=== PATIENT | female | born 1940 | race Caucasian/White ===

== ENCOUNTER 2021-12-29 04:41 | Inpatient (IN) ==
[2021-12-29] MEDS ORDERED: ACETAMINOPHEN 1,000 MG/100 ML VIAL IV STA (05:18)
[2021-12-29 05:39] LABS: Basophils # (auto) 0.04 K/uL (0-0.2); Basophils % (auto) 0.3 %; Eosinophils # (auto) 0.09 K/uL (0-0.50); Eosinophils % (auto) 0.7 %; Hematocrit (blood only) 35.1 % (34.1-44.9); Hemoglobin 12.3 g/dl (12.0-16.0); Immature Granulocytes # (auto) 0.06 K/uL (0.00-0.02); Immature Granulocytes % (auto) 0.5 %; Lymphocytes # (auto) 1.07 K/uL (1.2-3.4); Lymphocytes % (auto) 8.9 %; Mean Corpuscular Hemoglobin 31.6 pg (25.0-34.0); Mean Corpuscular Volume 90.2 fL (80.0-100.0); Mean Platelet Volume 11.6 fL (9.4-12.3); Monocytes # (auto) 0.52 K/uL (0.24-0.82); Monocytes % (auto) 4.3 %; Neutrophils # (auto) 10.26 K/uL (1.4-6.5); Neutrophils % (auto) 85.3 %; Platelet Count 226 K/uL (130-400); RDW Coefficient of Variation 11.7 % (11.5-14.5); RDW Standard Deviation 38.4 fL (36.4-46.3); Red Blood Count 3.89 M/uL (3.93-5.22); White Blood Count 12.04 K/ul (4.8-10.8)
[2021-12-29] MEDS: SODIUM CHLORIDE 0.9% 500 ML IV SCH ×3 (05:45→15:00)
[2021-12-29 05:51] LABS: INR 1.2 (0.9-1.1); Partial Thromboplastin Ratio 0.8; Partial Thromboplastin Time 21.1 Seconds (21.0-31.0); Prothrombin Time 12.3 Seconds (9.0-12.0)
[2021-12-29 06:07] LABS: Alanine Aminotransferase 11 U/L (7-52); Albumin Level 4.3 gm/dl (3.4-5.0); Alkaline Phosphatase 49 U/L (34-104); Anion Gap 9 (3-11); Aspartate Aminotransferase 15 U/L (13-39); Bilirubin,Total 0.6 mg/dl (0.2-1.0); Blood Urea Nitrogen 16 mg/dl (6-23); Calcium 9.7 mg/dl (8.5-10.1); Carbon Dioxide 29 mmol/L (21-32); Chloride 103 mmol/L (98-107); Globulin 2.2 gm/dl (2.5-4.0); Glucose 117 mg/dl (70-99(Fasting)); Potassium 3.1 mmol/L (3.5-5.1); Sodium 141 mmol/L (136-145); Total Protein 6.5 gm/dl (6.0-8.3)
--- NOTE | 2021-12-29 06:11 | XRay Report ---
SINGLE VIEW CHEST CLINICAL HISTORY: Fall. Generalized weakness. FINDINGS: An AP, portable, supine chest radiograph is compared to study dated 12/22/2018 and correlate d with chest CT dated 07/02/2016. The cardiomediastinal silhouette is unremarkable noting atherosclero tic calcification of the thoracic aorta. Chronic interstitial thickening is similar to previous. The lungs and pleural spaces are clear. No pneumothorax is seen. The skeletal structures are osteopenic. The bony thorax is grossly intact. IMPRESSION: No active disease in the chest. ACT 112: Negative or not required by law. Electronically signed by: Ede Jaramillo M.D. 12/29/2021 6:10 AM
--- NOTE | 2021-12-29 06:18 | XRay Report ---
SINGLE VIEW PELVIS; 2 VIEWS LEFT HIP CLINICAL HISTORY: Fall with left hip pain. FINDINGS: An AP view of the pelvis with AP and crosstable lateral views of the left hip are obtained. No prior studies are available for comparison at the time of dictation. The skeletal structures are osteopenic. There is a nondisplaced intertrochanteric fracture of the left proximal femur with overly ing soft tissue edema. No additional fracture is seen involving the right hip or the bony pelvis. Mil [id number] degenerative change and joint space narrowing is seen in the hips. There is mild degene rative sclerosis of the sacroiliac joints. Suture material projects over the pelvis. There is no julian l obstruction. IMPRESSION: Nondisplaced intertrochanteric fracture of the left proximal femur. Electronically signed by: Ede Jaramillo M.D. 12/29/2021 6:17 AM
[2021-12-29 06:26] LABS: BUN Creatinine Ratio 12.8 (10-20); Est GFR (African American) 46.4 ml/min
[2021-12-29 06:28] LABS: Appearance Urine Cloudy (Clear); Bacteria Urine Automated Negative (Negative); Bilirubin Urine Negative (Negative); Blood Urine Negative (Negative); Cast Urine Automated 0 /lpf (0-5); Color Urine Yellow; Glucose Urine UA Negative (Negative); Ketones Urine Negative (Negative); Leukocyte Esterase Urine Negative (Negative); Nitrite Urine Negative (Negative); Protein Urine Negative (Negative); RBC Urine Automated 0-4 /hpf (0-4); Specific Gravity Urine 1.012 (1.000-1.030); Urobilinogen Urine Negative (Negative); WBC Urine Automated 0 /hpf (0-5); pH Urine 7.5 (4.5-7.5)
--- NOTE | 2021-12-29 08:03 | Emergency Department Note ---
Impression & Plan Closed left hip fracture, Dementia, CKD (chronic kidney disease) ED Provider Note NAME: JHONATAN CHEN AGE: 81 SEX: F ARRIVES VIA: Ambulance INFORMANT: EMS ED PROVIDER(S): Bennie Vigil MD CHIEF COMPLAINT: Fall, hip pain PLAN: Disposition: Admit MEDICAL DECISION MAKING: The patient is a pleasant 81-year-old woman with a past medical history of dementia, chronic left-sided facial droop, CKD who presents to the emergency department via EMS from [place] where she was found on the ground early this morning complaining of left hip pain. Patient is a poor historian. She has tenderness throughout the left groin with limited range of motion secondary to pain. Distal PMS intact. She is not on anticoagulation. The patient is a poor historian. There were no reports of any recent illness, fevers cough or otherwise. On arrival the patient is uncomfortable in no acute distress, afebrile stable vital signs. She has tenderness throughout the left groin with limited range of motion secondary to pain. EKG without overt acute ischemia. CXR negative for acute cardiopulmonary process. WBC 12, nonspecific. H/H and platelets within normal limits. Chemistry without metabolic acidosis. Creatinine 1.2 without prior values for comparison. LFTs unremarkable. UA without evidence of infection. COVID-19 RNA, LUX test was negative. Plain films of the pelvis and left hip demonstrate a non-displaced left intertrochanteric hip fracture. I did attempt to contact the patient's daughter, Jenae, but a voicemail was left. Case was discussed with MARIA VICTORIA Adams hospitalist, who will evaluate the patient for admission. Triage Nursing notes reviewed and agree them. Prior medical records reviewed Vital Signs: reviewed and remarkable for no significant abnormalities Differential diagnosis: Fracture, subluxation, dislocation, contusion, ligamentous injury, ne urovascular, compartment syndrome, rhabdomyolysis, as well as other pathologies. ER treatment provided: See below. Diagnostics interpreted by me: ECG: Sinus bradycardia, 56 bpm, no ectopy, no overt ST elevation or depression, QTC 472, QRS 80. Cardiac Monitoring: An order for continuous cardiac monitoring was placed and demonstrated Sinus bradycardia, 56 bpm, no ectopy. Laboratory studies: See below Imaging studies: See below Consultation(s): MARIA VICTORIA Adams hospitalist HPI: The patient is a pleasant 81-year-old woman with a past medical history of dementia, chronic left-sided facial droop, CKD who presents to the emergency department via EMS from [place] where she was found on the ground early this morning complaining of left hip pain. Patient is a poor historian. She has tenderness throughout the left groin with limited range of motion secondary to pain. Distal PMS intact. She is not on anticoagulation. The patient is a poor historian. There were no reports of any recent illness, fevers cough or otherwise. ROS: See above HPI for pertinent positives & negatives. A total of 10 systems reviewed and were otherwise negative. VITALS:See Below PHYSICAL EXAMINATION: GENERAL: Awake, alert, uncomfortable-appearing, in no distress HENT: Normocephalic, atraumatic. Oropharynx with dry mucous membranes and otherwise unremarkable. EYES: Normal conjunctiva. Sclera non-icteric. NECK: Supple. No nuchal rigidity. FROM. No JVD. RESPIRATORY: Clear to auscultation. CARDIAC: Regular rate, normal rhythm. Extremities warm and well perfused. Pulses equal. ABDOMEN: Soft, non-distended. No tenderness to palpation. No rebound or guarding. No masses. RECTAL: Deferred. MUSCULOSKELETAL: Chest examination reveals no tenderness. The back is symmetrical on inspection without obvious abnormality. There is no CVA tenderness to palpation. Tenderness throughout the left groin with limited range of motion secondary to pain. LOWER EXTREMITIES: Calves are equal size bilaterally and non-tender. No edema. No discoloration. NEURO: Left facial droop that is baseline per report. No new focal sensory or motor deficits noted. SKIN: No rash or jaundice noted. 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 Depression Diverticulosis Dyspnea Essential hypertension Gastroparesis GERD (gastroesophageal reflux disease) Hiatal hernia Kidney disease, chronic, stage III (GFR 30-59 ml/min) Mitral valve disorder Palpitations Paroxysmal supraventricular tachycardia Premature beats Pure hyperglyceridemia Rheumatic aortic regurgitation Seborrheic keratosis Skin cancer Tachycardia Thyroid nodule Surgical History H/O removal of cyst H/O total hysterectomy History of appendectomy History of cardiac cath History of cholecystectomy History of tonsillectomy and adenoidectomy Family History Brother Hypertension Diabetes Lung cancer Sister Hypertension Social History Smoking Status: Never smoker Hx Alcohol Use: No Hx Substance Use: No Preferred Language: Cambodian Communication Ability: Effective [employer] Driver Required: No Beliefs That Will Affect Care: None marital status: Current Living Situation: Personal Care Facility Current Living Situation Comment: [facility] current occupational status: retired Other Information That Helps Us Care for You: No Feels Safe at Home: Yes Safety Concerns: Feels Safe At This Time caffeine: Yes Seatbelt Use: always Assistive Devices: None Allergies Allergies Allergy/AdvReac Type Severity Reaction Status Date / Time codeine Allergy Unknown Verified 12/29/21 07:11 shellfish derived Allergy Unknown UNKNOWN Verified 12/29/21 07:11 Home Meds Home Medications Medication Instructions Recorded Confirmed ascorbate calcium (vitamin C) 500 500 mg PO DAILY 07/26/19 12/29/21 mg tablet aspirin 81 mg tablet,delayed 81 mg PO DAILY 07/26/19 12/29/21 release (Adult Low Dose Aspirin) calcitriol 0.25 mcg capsule 0.25 mcg PO DAILY 07/26/19 12/29/21 cholecalciferol (vitamin D3) 50 50 mcg PO DAILY 07/26/19 12/29/21 mcg (2,000 unit) capsule diltiazem HCl 180 mg 180 mg PO DAILY 07/26/19 12/29/21 capsule,extended release 24 hr (Cardizem CD) magnesium 250 mg tablet 250 mg PO DAILY 07/26/19 12/29/21 omeprazole 40 mg capsule,delayed 40 mg PO DAILY 07/26/19 12/29/21 release azelastine 137 mcg (0.1 %) nasal 1 spray intranasal BID PRN 12/29/21 12/29/21 spray aerosol Congestion budesonide 0.5 mg/2 mL suspension 0.5 mg inhalation UD 12/29/21 12/29/21 for nebulization famotidine 20 mg tablet 20 mg PO DAILY 12/29/21 12/29/21 formoterol fumarate 20 mcg/2 mL 20 mcg inhalation UD 12/29/21 12/29/21 solution for nebulization (Perforomist) metoprolol tartrate 25 mg tablet 25 mg PO BID 12/29/21 12/29/21 sertraline 100 mg tablet 100 mg PO DAILY 12/29/21 12/29/21 Previous Rx's Medication Instructions Recorded fluticasone furoate 200 1 puffs inhalation DAILY #1 inhaler 11/07/19 mcg-vilanterol 25 mcg/dose inhalation powder (Breo Ellipta) fexofenadine 180 mg tablet 180 mg PO DAILY #30 tabs 04/03/20 (Lara Allergy) Results & Data (ED) Vital Signs Vital Signs - 24 hr 12/29/21 04:46 12/29/21 05:50 12/29/21 06:19 Temperature 36.8 C Temperature Source Rectal Pulse Rate 86 Pulse Rate [Finger] 63 58 L Pulse Rhythm [Finger] Regular Regular Pulse Strength [Finger] Normal Normal Respiratory Rate 16 17 16 Respiratory Effort / Characteristics Non-Labored Spontaneous Non-Labored Spontaneous Non-Labored Spontaneous Respiratory Depth Normal Normal Normal Respiratory Pattern Regular Regular Blood Pressure 165/77 H Blood Pressure [Right Arm] 165/77 H 167/68 H Blood Pressure Mean 106 Blood Pressure Mean [Right Arm] 106 101 Blood Pressure Position [Right Arm] Lying Pulse Oximetry 92 96 95 Oxygen Delivery Method Room Air Room Air Room Air Sepsis Recent Fever Within 48 Hours No Sepsis New/Unexplained Change in Mental Status No Sepsis Action Taken by Nursing No Action Required 12/29/21 07:59 Temperature Temperature Source Pulse Rate Pulse Rate [Finger] 58 L Pulse Rhythm [Finger] Pulse Strength [Finger] Respiratory Rate 16 Respiratory Effort / Characteristics Non-Labored Respiratory Depth Normal Respiratory Pattern Blood Pressure Blood Pressure [Right Arm] 127/91 Blood Pressure Mean Blood Pressure Mean [Right Arm] 103 Blood Pressure Position [Right Arm] Pulse Oximetry 96 Oxygen Delivery Method Room Air Sepsis Recent Fever Within 48 Hours Sepsis New/Unexplained Change in Mental Status Sepsis Action Taken by Nursing Laboratory Data Attestation: I reviewed the patient's lab results. Result diagrams: 12/29/21 04:57 12/29/21 04:57 Lab Results 12/29/21 12/29/21 12/29/21 Range/Units 04:57 04:57 04:57 WBC 12.04 H (4.8-10.8) K/ul RBC 3.89 L (3.93-5.22) M/uL Hgb 12.3 (12.0-16.0) g/dl Hct 35.1 (34.1-44.9) % MCV 90.2 (80.0-100.0) fL MCH 31.6 (25.0-34.0) pg MCHC 35.0 (32.0-36.0) g/dL RDW Std Deviation 38.4 (36.4-46.3) fL RDW Coeff of Lc 11.7 (11.5-14.5) % Plt Count 226 (130-400) K/uL MPV 11.6 (9.4-12.3) fL Immature Gran % (Auto) 0.5 % Neut % (Auto) 85.3 % Lymph % (Auto) 8.9 % Aurora % (Auto) 4.3 % Eos % (Auto) 0.7 % Baso % (Auto) 0.3 % Neut # (Auto) 10.26 H (1.4-6.5) K/uL Lymph # (Auto) 1.07 L (1.2-3.4) K/uL Aurora # (Auto) 0.52 (0.24-0.82) K/uL Eos # (Auto) 0.09 (0-0.50) K/uL Baso # (Auto) 0.04 (0-0.2) K/uL Immature Gran # (Auto) 0.06 H (0.00-0.02) K/uL PT 12.3 H (9.0-12.0) Seconds INR 1.2 H (0.9-1.1) APTT 21.1 (21.0-31.0) Seconds PTT Ratio 0.8 Sodium 141 (136-145) mmol/L Potassium 3.1 L (3.5-5.1) mmol/L Chloride 103 (98-107) mmol/L Carbon Dioxide 29 (21-32) mmol/L Anion Gap 9 (3-11) BUN 16 (6-23) mg/dl Creatinine 1.25 H (0.6-1.2) mg/dl Est Cr Clr Drug Dosing Not Reportable Est GFR ( Amer) 46.4 ml/min Est GFR (Non-Af Amer) 40.0 ml/min BUN/Creatinine Ratio 12.8 (10-20) Glucose 117 H (70-99(Fasting)) mg/dl Calcium 9.7 (8.5-10.1) mg/dl Total Bilirubin 0.6 (0.2-1.0) mg/dl AST 15 (13-39) U/L ALT 11 (7-52) U/L Alkaline Phosphatase 49 (34-104) U/L Total Protein 6.5 (6.0-8.3) gm/dl Albumin 4.3 (3.4-5.0) gm/dl Globulin 2.2 L (2.5-4.0) gm/dl Albumin/Globulin Ratio 2.0 (0.9-2) Urine Color Urine Appearance (Clear) Urine pH (4.5-7.5) Ur Specific Bend (1.000-1.030) Urine Protein (Negative) Urine Glucose (UA) (Negative) Urine Ketones (Negative) Urine Blood (Negative) Urine Nitrite (Negative) Urine Bilirubin (Negative) Urine Urobilinogen (Negative) Ur Leukocyte Esterase (Negative) Urine WBC (Auto) (0-5) /hpf Urine RBC (Auto) (0-4) /hpf U Hyaline Cast (Auto) (0-5) /lpf U Epithel Cells (Auto) (0-5) /lpf Urine Bacteria (Auto) (Negative) SARS-CoV-2, RNA, NAAT (NEGATIVE) 12/29/21 12/29/21 Range/Units 05:43 05:43 WBC (4.8-10.8) K/ul RBC (3.93-5.22) M/uL Hgb (12.0-16.0) g/dl Hct (34.1-44.9) % MCV (80.0-100.0) fL MCH (25.0-34.0) pg MCHC (32.0-36.0) g/dL RDW Std Deviation (36.4-46.3) fL RDW Coeff of Lc (11.5-14.5) % Plt Count (130-400) K/uL MPV (9.4-12.3) fL Immature Gran % (Auto) % Neut % (Auto) % Lymph % (Auto) % Aurora % (Auto) % Eos % (Auto) % Baso % (Auto) % Neut # (Auto) (1.4-6.5) K/uL Lymph # (Auto) (1.2-3.4) K/uL Aurora # (Auto) (0.24-0.82) K/uL Eos # (Auto) (0-0.50) K/uL Baso # (Auto) (0-0.2) K/uL Immature Gran # (Auto) (0.00-0.02) K/uL PT (9.0-12.0) Seconds INR (0.9-1.1) APTT (21.0-31.0) Seconds PTT Ratio Sodium (136-145) mmol/L Potassium (3.5-5.1) mmol/L Chloride (98-107) mmol/L Carbon Dioxide (21-32) mmol/L Anion Gap (3-11) BUN (6-23) mg/dl Creatinine (0.6-1.2) mg/dl Est Cr Clr Drug Dosing Est GFR ( Amer) ml/min Est GFR (Non-Af Amer) ml/min BUN/Creatinine Ratio (10-20) Glucose (70-99(Fasting)) mg/dl Calcium (8.5-10.1) mg/dl Total Bilirubin (0.2-1.0) mg/dl AST (13-39) U/L ALT (7-52) U/L Alkaline Phosphatase (34-104) U/L Total Protein (6.0-8.3) gm/dl Albumin (3.4-5.0) gm/dl Globulin (2.5-4.0) gm/dl Albumin/Globulin Ratio (0.9-2) Urine Color Yellow Urine Appearance Cloudy A (Clear) Urine pH 7.5 (4.5-7.5) Ur Specific [place] 1.012 (1.000-1.030) Urine Protein Negative (Negative) Urine Glucose (UA) Negative (Negative) Urine Ketones Negative (Negative) Urine Blood Negative (Negative) Urine Nitrite Negative (Negative) Urine Bilirubin Negative (Negative) Urine Urobilinogen Negative (Negative) Ur Leukocyte Esterase Negative (Negative) Urine WBC (Auto) 0 (0-5) /hpf Urine RBC (Auto) 0-4 (0-4) /hpf U Hyaline Cast (Auto) 0 (0-5) /lpf U Epithel Cells (Auto) 5-10 H (0-5) /lpf Urine Bacteria (Auto) Negative (Negative) SARS-CoV-2, RNA, NAAT NEGATIVE (NEGATIVE) Administered Medications Acetaminophen (Acetaminophen 325 Mg Tab) 650 mg PO Q4H PRN PRN Reason: pain/fever Stop: 01/28/22 10:25 Last Admin: 12/29/21 14:55 Dose: 650 mg Documented By: JILLW Ascorbic Acid (Ascorbic Acid 500 Mg Tab) 500 mg PO DAILY VEE Stop: 01/28/22 10:44 Last Admin: 12/29/21 12:03 Dose: 500 mg Documented By: BHAVIN Aspirin (Aspirin 81 Mg Ectab) 81 mg PO DAILY VEE Stop: 01/28/22 10:25 Last Admin: 12/29/21 12:02 Dose: 81 mg Documented By: BHAVIN Budesonide (Budesonide 0.5 Mg/2 Ml Vial (Pulmicort)) 0.5 mg INH BIDR VEE Stop: 01/28/22 10:59 Last Admin: 12/29/21 11:55 Dose: 0.5 mg Documented By: MAGALY Calcitriol (Calcitriol 0.25 Mcg Capsule) 0.25 mcg PO DAILY VEE Stop: 01/28/22 10:25 Last Admin: 12/29/21 12:02 Dose: 0.25 mcg Documented By: BHAVIN Diltiazem HCl (Diltiazem Hcl 180 Mg Capcr) 180 mg PO DAILY VEE Stop: 01/28/22 10:25 Last Admin: 12/29/21 12:02 Dose: 180 mg Documented By: BHAVIN Famotidine (Famotidine 20 Mg Tab) 20 mg PO DAILY VEE Stop: 01/28/22 10:25 Last Admin: 12/29/21 12:04 Dose: 20 mg Documented By: BHAVIN Fexofenadine HCl (Fexofenadine Hcl 180 Mg Tab) 180 mg PO DAILY VEE Stop: 01/28/22 10:25 Last Admin: 12/29/21 12:05 Dose: 180 mg Documented By: BHAVIN Formoterol Fumarate (Formoterol 20 Mcg/2 Ml Vial) 20 mcg INH BIDR VEE Stop: 01/28/22 10:59 Last Admin: 12/29/21 11:55 Dose: 20 mcg Documented By: MAGALY Magnesium Oxide (Magnesium Oxide 400 Mg Tab) 400 mg PO DAILY VEE Stop: 01/28/22 10:44 Last Admin: 12/29/21 12:04 Dose: 400 mg Documented By: BHAVIN Metoprolol Tartrate (Metoprolol Tartrate 25 Mg Tab) 25 mg PO BID VEE Stop: 01/28/22 10:25 Last Admin: 12/29/21 12:04 Dose: 25 mg Documented By: BHAVIN Pantoprazole Sodium (Pantoprazole 40 Mg Tab) 40 mg PO DAILY VEE Stop: 01/28/22 10:44 Last Admin: 12/29/21 12:02 Dose: 40 mg Documented By: BHAVIN Sertraline HCl (Sertraline Hcl 100 Mg Tablet) 100 mg PO DAILY VEE Stop: 01/28/22 10:25 Last Admin: 12/29/21 12:03 Dose: 100 mg Documented By: BHAVIN Vitamin D (Cholecalciferol 1,000 Units 25 Mcg Tab) 2,000 units PO DAILY VEE Stop: 01/28/22 10:44 Last Admin: 12/29/21 12:03 Dose: 2,000 units Documented By: BHAVIN Discontinued Medications Fluticasone/Vilanterol (Fluticasone/Vilanterol 200/25mcg 14 Puffs/Inhaler) 1 puffs INH DAILY VEE Stop: 01/28/22 10:25 Last Admin: 12/29/21 11:41 Dose: Not Given Documented By: BHAVIN Sodium Chloride (Nss) 500 mls @ 125 mls/hr IV .Q4H VEE Stop: 01/28/22 05:29 Last Admin: 12/29/21 15:00 Dose: 125 mls/hr Documented By: Infusion: 12/29/21 14:59 Dose: 0 mls/hr Documented By: Admin: 12/29/21 11:30 Dose: 125 mls/hr Documented By: Infusion: 12/29/21 09:45 Dose: 0 mls/hr Documented By: Admin: 12/29/21 05:45 Dose: 125 mls/hr Documented By: ANTONIO Acetaminophen (Ofirmev) 1,000 mg in 100 mls @ 400 mls/hr IV NOW STA Stop: 12/29/21 05:32 Last Infusion: 12/29/21 06:21 Dose: 0 mls/hr Documented By: Admin: 12/29/21 05:45 Dose: 400 mls/hr Documented By: [facility] Imaging Data Radiologist's Impression: Hip/Pelvis X-Ray 12/29/21 05:18 SINGLE VIEW PELVIS; 2 VIEWS LEFT HIP CLINICAL HISTORY: Fall with left hip pain. FINDINGS: An AP view of the pelvis with AP and crosstable lateral views of the left hip are obtained. No prior studies are available for comparison at the time of dictation. The skeletal structures are osteopenic. There is a nondisplaced intertrochanteric fracture of the left proximal femur with overlying soft tissue edema. No additional fracture is seen involving the right hip or the bony pelvis. [id number] degenerative change and joint space narrowing is seen in the hips. There is mild degenerative sclerosis of the sacroiliac joints. Suture material projects over the pelvis. There is no bowel obstruction. IMPRESSION: Nondisplaced intertrochanteric fracture of the left proximal femur. Electronically signed by: Ede Jaramillo M.D. 12/29/2021 6:17 AM Chest X-Ray 12/29/21 05:19 SINGLE VIEW CHEST CLINICAL HISTORY: Fall. Generalized weakness. FINDINGS: An AP, portable, supine chest radiograph is compared to study dated 12/22/2018 and correlated with chest CT dated 07/02/2016. The cardiomediastinal silhouette is unremarkable noting atherosclerotic calcification of the thoracic aorta. Chronic interstitial thickening is similar to previous. The lungs and pleural spaces are clear. No pneumothorax is seen. The skeletal structures are osteopenic. The bony thorax is grossly intact. IMPRESSION: No active disease in the chest. ACT 112: Negative or not required by law. Electronically signed by: Ede Jaramillo M.D. 12/29/2021 6:10 AM Discharge Plan Visit Data Chief Complaint: Hip Pain Stated Complaint: Fall ED Provider: Bennie Vigil Discharge Problem: Closed left hip fracture, Dementia, CKD (chronic kidney disease) Patient Disposition: Admitted As Inpatient Discharge Instructions Interventions: ED Discharge Assessment Last Done: 12/29/21 10:08
[2021-12-29] MEDS ORDERED: CALCITRIOL 0.25 MCG CAPSULE PO SCH (10:26)
[2021-12-29] MEDS ORDERED: FLUTICASONE/VILANTEROL 200/25MCG 14 PUFFS/INHALER INH SCH (10:26)
[2021-12-29] MEDS: BUDESONIDE 0.5 MG/2 ML VIAL (PULMICORT) INH SCH ×2 (11:55→20:09)
[2021-12-29] MEDS: FORMOTEROL 20 MCG/2 ML VIAL INH SCH ×2 (11:55→20:09)
[2021-12-29] MEDS: PANTOprazole 40 MG TAB PO SCH (12:02)
[2021-12-29] MEDS: ASPIRIN 81 MG ECTAB PO SCH (12:02)
[2021-12-29] MEDS: CALCITRIOL 0.25 MCG CAPSULE PO SCH (12:02)
[2021-12-29] MEDS: dilTIAZem HCL 180 MG CAPCR PO SCH (12:02)
[2021-12-29] MEDS: SERTRALINE HCL 100 MG TABLET PO SCH (12:03)
[2021-12-29] MEDS: CHOLECALCIFEROL 1,000 UNITS 25 MCG TAB PO SCH (12:03)
[2021-12-29] MEDS: ASCORBIC ACID 500 MG TAB PO SCH (12:03)
[2021-12-29] MEDS: METOPROLOL TARTRATE 25 MG TAB PO SCH ×2 (12:04→21:45)
[2021-12-29] MEDS: FAMOTIDINE 20 MG TAB PO SCH (12:04)
[2021-12-29] MEDS: MAGNESIUM OXIDE 400 MG TAB PO SCH (12:04)
[2021-12-29] MEDS: FEXOFENADINE HCL 180 MG TAB PO SCH (12:05)
--- NOTE | 2021-12-29 12:14 | History & Physical Report ---
Date of Service December 29, 2021 Assessment & Plan (1) Closed left hip fracture: Plan: Following a mechanical fall at her [place] residence X ray showed evidence of a nondisplaced intertrochanteric fracture of the left proximal femur Will consult Orto Keep NPO SCD for now in case of surgery (2) HTN (hypertension): Plan: BP is under good control, continue home meds Plan patient is medically optimized for surgery Admission and Anticipated Discharge Date Admission Date: December 29, 2021 History of Present Illness Chief Complaint: hip pain Primary Care Provider: Shon Renteria Is an 81-year-old retirement resident with a history of dementia, COPD, HTN, who was brought from a retirement resident following a fall. Patient is a poor historian given a history of dementia so most of the history was obtained from chart review and ED doctor. In the emergency department, vital signs are stable, CBC BMP were essentially within normal limits however an x-ray of the hip was done which showed evidence of a nondisplaced intertrochanteric fracture of the left proximal femur. Patient will be admitted to the hospital, orthopedics consulted for further management. Of note, the surrogate decision maker is his daughter, call has been placed awaiting callback. Allergies Allergy/AdvReac Type Severity Reaction Status Date / Time codeine Allergy Unknown Verified 12/29/21 07:11 shellfish derived Allergy Unknown UNKNOWN Verified 12/29/21 07:11 Home Medications Medication Instructions Recorded Confirmed Type ascorbate calcium (vitamin C) 500 500 mg PO DAILY 07/26/19 12/29/21 History mg tablet aspirin 81 mg tablet,delayed 81 mg PO DAILY 07/26/19 12/29/21 History release (Adult Low Dose Aspirin) calcitriol 0.25 mcg capsule 0.25 mcg PO DAILY 07/26/19 12/29/21 History cholecalciferol (vitamin D3) 50 50 mcg PO DAILY 07/26/19 12/29/21 History mcg (2,000 unit) capsule diltiazem HCl 180 mg 180 mg PO DAILY 07/26/19 12/29/21 History capsule,extended release 24 hr (Cardizem CD) magnesium 250 mg tablet 250 mg PO DAILY 07/26/19 12/29/21 History omeprazole 40 mg capsule,delayed 40 mg PO DAILY 07/26/19 12/29/21 History release fluticasone furoate 200 1 puffs inhalation DAILY #1 inhaler 11/07/19 12/29/21 Rx mcg-vilanterol 25 mcg/dose inhalation powder (Breo Ellipta) fexofenadine 180 mg tablet 180 mg PO DAILY #30 tabs 04/03/20 12/29/21 Rx ([facility] All[facility]) azelastine 137 mcg (0.1 %) nasal 1 spray intranasal BID PRN 12/29/21 12/29/21 History spray aerosol Congestion budesonide 0.5 mg/2 mL suspension 0.5 mg inhalation UD 12/29/21 12/29/21 History for nebulization famotidine 20 mg tablet 20 mg PO DAILY 12/29/21 12/29/21 History formoterol fumarate 20 mcg/2 mL 20 mcg inhalation UD 12/29/21 12/29/21 History solution for nebulization (Perforomist) metoprolol tartrate 25 mg tablet 25 mg PO BID 12/29/21 12/29/21 History sertraline 100 mg tablet 100 mg PO DAILY 12/29/21 12/29/21 History Past Med/Surg History Medical History (Updated 12/29/21 @ 12:09 by Azar Hurst MD) Achalasia Anxiety Aortic insufficiency Aortic valve disorder Asthma Chest pain 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 Depression Diverticulosis Dyspnea Essential hypertension Gastroparesis GERD (gastroesophageal reflux disease) Hiatal hernia Kidney disease, chronic, stage III (GFR 30-59 ml/min) Mitral valve disorder Palpitations Paroxysmal supraventricular tachycardia Premature beats Pure hyperglyceridemia Rheumatic aortic regurgitation Seborrheic keratosis Skin cancer Tachycardia Thyroid nodule Surgical History H/O removal of cyst H/O total hysterectomy History of appendectomy History of cardiac cath History of cholecystectomy History of tonsillectomy and adenoidectomy Family History (Updated 11/07/19 @ 10:08 by Josefina uV) Brother Hypertension Diabetes Lung cancer Sister Hypertension Social History (Updated 07/26/19 @ 14:10 by Kathryn Cabrera) Smoking Status: Unknown if ever smoked Hx Alcohol Use: Yes marital status: Legally Current Living Situation: Family current occupational status: retired Feels Safe at Home: Yes caffeine: Yes Seatbelt Use: always Review of Systems Review of Systems: unreliable due to dementia Physical Exam Physical Exam: The patient is awake, alert confused, well developed and well nourished, normocephalic and atraumatic, lying in bed and in no acute distress. HEENT--PERRL, EOMI, mucous membranes and oropharynx mildly dry Neck--supple. No JVD. No bruits. Thyroid normal, trachea midline, no adenopathy. Heart--normal S1 and S2. No murmurs, rubs or gallops. Lungs--clear bilaterally, no respiratory distress, no accessory muscle use. Abdomen--normal bowel sounds and soft. Mild epigastric and left sided abdominal pain Extremities--no cyanosis or clubbing. No edema. Dermatologic--normal skin turgor, normal color, no abnormal lymph nodes, no rash. Neurologic--cranial nerves II through XII grossly intact. Rheumatologic--normal range of motion. Psychiatric--normal affect. Results & Data Results & Data ([facility]) Vital Signs (Past 12 Hours) Vital Signs Temp Pulse Pulse Resp BP BP Pulse Ox 12/29/21 11:56 62 16 96 12/29/21 10:07 62 16 126/67 96 12/29/21 07:59 58 L 16 127/91 96 12/29/21 06:19 58 L 16 167/68 H 95 12/29/21 05:50 63 17 165/77 H 96 12/29/21 04:46 98.2 F 86 16 165/77 H 92 O2 Del Method 12/29/21 11:56 Room Air 12/29/21 10:07 Room Air 12/29/21 07:59 Room Air 12/29/21 06:19 Room Air 12/29/21 05:50 Room Air 12/29/21 04:46 Room Air Code Status & VTE Plan Code Status full code for now VTE, SCD VTE Prophylaxis Plan VTE Prophylaxis will be ordered: Yes PG Care Time/CCT Total # of Minutes Spent Total Time Spent with Patient: Total time spent is greater than 50% in coordination of care (as documented) at patient's floor/unit and/or counseling patient: Coding Level of Care Code 10963 Initial Inpt Care Lvl 3 Diagnoses Closed left hip fracture S72.002A HTN (hypertension) I10 Time Spent (min) 35
[2021-12-29] MEDS: ACETAMINOPHEN 325 MG TAB PO PRN ×2 (14:55→22:44)
[2021-12-29] MEDS: SODIUM CHLORIDE 0.9% 1,000 ML IV SCH (18:45)
--- NOTE | 2021-12-29 21:07 | Electrocardiogram Report ---
Test Reason : Blood Pressure : / mmHG Vent. Rate : 056 BPM Atrial Rate : 056 BPM P-R Int : 144 ms QRS Dur : 080 ms QT Int : 490 ms P-R-T Axes : 069 -24 038 degrees QTc Int : 472 ms Sinus bradycardia Otherwise normal ECG When compared with ECG of 02-NOV-2002 14:13, No significant change was found Confirmed by Frankie Figueroa ([id number]) on 12/29/2021 9:07:07 PM Referred By: REFERRED SELF Confirmed By:Frankie Figueroa
[2021-12-29] MEDS: HEPARIN SOD 5,000 UNIT/0.5 ML VIAL SQ SCH (22:44)
[2021-12-30] MEDS: SODIUM CHLORIDE 0.9% 1,000 ML IV SCH ×3 (03:17→19:21)
[2021-12-30] MEDS: HEPARIN SOD 5,000 UNIT/0.5 ML VIAL SQ SCH ×3 (06:15→21:40)
[2021-12-30] MEDS: FORMOTEROL 20 MCG/2 ML VIAL INH SCH (07:24)
[2021-12-30] MEDS: BUDESONIDE 0.5 MG/2 ML VIAL (PULMICORT) INH SCH (07:24)
[2021-12-30] MEDS: ASCORBIC ACID 500 MG TAB PO SCH (08:26)
[2021-12-30] MEDS: CALCITRIOL 0.25 MCG CAPSULE PO SCH (08:26)
[2021-12-30] MEDS: METOPROLOL TARTRATE 25 MG TAB PO SCH ×2 (08:27→20:47)
[2021-12-30] MEDS: CHOLECALCIFEROL 1,000 UNITS 25 MCG TAB PO SCH (08:27)
[2021-12-30] MEDS: MAGNESIUM OXIDE 400 MG TAB PO SCH (08:27)
[2021-12-30] MEDS: FAMOTIDINE 20 MG TAB PO SCH (08:28)
[2021-12-30] MEDS: FEXOFENADINE HCL 180 MG TAB PO SCH (08:28)
[2021-12-30] MEDS: ASPIRIN 81 MG ECTAB PO SCH (08:28)
[2021-12-30] MEDS: dilTIAZem HCL 180 MG CAPCR PO SCH (08:28)
[2021-12-30] MEDS: PANTOprazole 40 MG TAB PO SCH (08:28)
[2021-12-30] MEDS: SERTRALINE HCL 100 MG TABLET PO SCH (08:29)
[2021-12-30] MEDS: ACETAMINOPHEN 325 MG TAB PO PRN ×2 (08:31→12:31)
[2021-12-30 08:32] LABS: Hematocrit (blood only) 28.1 % (34.1-44.9); Hemoglobin 10.2 g/dl (12.0-16.0); Mean Corpuscular Hemoglobin 32.1 pg (25.0-34.0); Mean Corpuscular Hgb Conc 36.3 g/dL (32.0-36.0); Mean Corpuscular Volume 88.4 fL (80.0-100.0); Mean Platelet Volume 11.1 fL (9.4-12.3); Platelet Count 169 K/uL (130-400); RDW Coefficient of Variation 11.7 % (11.5-14.5); RDW Standard Deviation 37.9 fL (36.4-46.3); Red Blood Count 3.18 M/uL (3.93-5.22); White Blood Count 8.36 K/ul (4.8-10.8)
[2021-12-30 08:58] LABS: BUN Creatinine Ratio 13.6 (10-20); Calcium 8.4 mg/dl (8.5-10.1); Creatinine Clr Calc Pharmacy 40.5 ml/min; Est GFR (African American) 78.4 ml/min; Est GFR (Non-African American) 67.6 ml/min; Potassium 2.7 mmol/L (3.5-5.1)
[2021-12-30] MEDS ORDERED: POTASSIUM CHLORIDE CRTAB 20 MEQ TABCR PO STA (14:24)
--- NOTE | 2021-12-30 15:06 | Anesthesiology Consultation ---
Date of Service December 30, 2021 Assessment & Plan Chart Review Chart Review: Pending: Refer to Additional Notes / Consult section and Patient NOT seen in Pre Admission Testing Consults Requested medical ASA ASA4 History Surgery Operation Date: 12/30/21 16:00 Proposed Procedures p Intramedullary Mauro Femur - Angelito Landers, Height/Weight Height: 5 ft 5 in Weight: 47.9 kg Allergies Allergy/AdvReac Type Severity Reaction Status Date / Time codeine Allergy Unknown Verified 12/29/21 07:11 shellfish derived Allergy Unknown UNKNOWN Verified 12/29/21 07:11 Medications Home Medications Medication Instructions Recorded Confirmed Last Taken ascorbate calcium (vitamin C) 500 500 mg PO DAILY 07/26/19 12/29/21 Unknown mg tablet aspirin 81 mg tablet,delayed 81 mg PO DAILY 07/26/19 12/29/21 Unknown release (Adult Low Dose Aspirin) calcitriol 0.25 mcg capsule 0.25 mcg PO DAILY 07/26/19 12/29/21 Unknown cholecalciferol (vitamin D3) 50 50 mcg PO DAILY 07/26/19 12/29/21 Unknown mcg (2,000 unit) capsule diltiazem HCl 180 mg 180 mg PO DAILY 07/26/19 12/29/21 Unknown capsule,extended release 24 hr (Cardizem CD) magnesium 250 mg tablet 250 mg PO DAILY 07/26/19 12/29/21 Unknown omeprazole 40 mg capsule,delayed 40 mg PO DAILY 07/26/19 12/29/21 Unknown release fluticasone furoate 200 1 puffs inhalation DAILY #1 inhaler 11/07/19 12/29/21 Unknown mcg-vilanterol 25 mcg/dose inhalation powder (Breo Ellipta) fexofenadine 180 mg tablet 180 mg PO DAILY #30 tabs 04/03/20 12/29/21 Unknown (Lara Allergy) azelastine 137 mcg (0.1 %) nasal 1 spray intranasal BID PRN 12/29/21 12/29/21 Unknown spray aerosol Congestion budesonide 0.5 mg/2 mL suspension 0.5 mg inhalation UD 12/29/21 12/29/21 Unknown for nebulization famotidine 20 mg tablet 20 mg PO DAILY 12/29/21 12/29/21 Unknown formoterol fumarate 20 mcg/2 mL 20 mcg inhalation UD 12/29/21 12/29/21 Unknown solution for nebulization (Perforomist) metoprolol tartrate 25 mg tablet 25 mg PO BID 12/29/21 12/29/21 Unknown sertraline 100 mg tablet 100 mg PO DAILY 12/29/21 12/29/21 Unknown Active Medications Generic Name Dose Route Start Last Admin Trade Name Freq PRN Reason Stop Dose Admin Acetaminophen 650 mg 12/29/21 10:26 12/30/21 12:31 Acetaminophen 325 Mg Tab PO 01/28/22 10:25 650 mg Q4H PRN Administration pain/fever Ascorbic Acid 500 mg 12/29/21 10:45 12/30/21 08:26 Ascorbic Acid 500 Mg Tab PO 01/28/22 10:44 500 mg DAILY VEE Administration Aspirin 81 mg 12/29/21 10:12/30/21 08:28 Aspirin 81 Mg Ectab PO 01/28/22 10:25 81 mg DAILY VEE Administration Calcitriol 0.25 mcg 12/29/21 10:26 12/30/21 08:26 Calcitriol 0.25 Mcg Capsule PO 01/28/22 10:25 0.25 mcg DAILY VEE Administration Diltiazem HCl 180 mg 12/29/21 10:26 12/30/21 08:28 Diltiazem Hcl 180 Mg Capcr PO 01/28/22 10:25 Not Given DAILY VEE Famotidine 20 mg 12/29/21 10:26 12/30/21 08:28 Famotidine 20 Mg Tab PO 01/28/22 10:25 20 mg DAILY VEE Administration Fexofenadine HCl 180 mg 12/29/21 10:26 12/30/21 08:28 Fexofenadine Hcl 180 Mg Tab PO 01/28/22 10:25 180 mg DAILY VEE Administration Heparin Sodium (Porcine) 5,000 units 12/29/21 22:00 12/30/21 13:28 Heparin Sod 5,000 Unit/0.5 Ml Vial SQ 01/28/22 21:59 Not Given Q8 VEE Sodium Chloride 1,000 mls @ 125 mls/hr 12/29/21 18:00 12/30/21 11:31 Nss IV 01/28/22 17:59 125 mls/hr .Q8H VEE Administration Magnesium Oxide 400 mg 12/29/21 10:45 12/30/21 08:27 Magnesium Oxide 400 Mg Tab PO 01/28/22 10:44 400 mg DAILY VEE Administration Metoprolol Tartrate 25 mg 12/29/21 10:26 12/30/21 08:27 Metoprolol Tartrate 25 Mg Tab PO 01/28/22 10:25 Not Given BID VEE Pantoprazole Sodium 40 mg 12/29/21 10:45 12/30/21 08:28 Pantoprazole 40 Mg Tab PO 01/28/22 10:44 40 mg DAILY VEE Administration Sertraline HCl 100 mg 12/29/21 10:26 12/30/21 08:29 Sertraline Hcl 100 Mg Tablet PO 01/28/22 10:25 100 mg DAILY VEE Administration Vitamin D 2,000 units 12/29/21 10:45 12/30/21 08:27 Cholecalciferol 1,000 Units 25 Mcg Tab PO 01/28/22 10:44 2,000 units DAILY VEE Administration Past Medical History Medical History Achalasia Anxiety Aortic insufficiency Aortic valve disorder Asthma Chest pain 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 Depression Diverticulosis Dyspnea Essential hypertension Gastroparesis GERD (gastroesophageal reflux disease) Hiatal hernia Kidney disease, chronic, stage III (GFR 30-59 ml/min) Mitral valve disorder Palpitations Paroxysmal supraventricular tachycardia Premature beats Pure hyperglyceridemia Rheumatic aortic regurgitation Seborrheic keratosis Skin cancer Tachycardia Thyroid nodule Exercise / Class Metabolic Activity III < 4 Walking/Shop/Light housework Past Family History Family History Brother Hypertension Diabetes Lung cancer Sister Hypertension Past Surgical History Surgical History H/O removal of cyst H/O total hysterectomy History of appendectomy History of cardiac cath History of cholecystectomy History of tonsillectomy and adenoidectomy Past Anesthesia History No Hx of Anesthesia Complications and No Family Hx of Anesthesia Complications History of PONV No Hx of PONV and No Hx of Motion Sickness Social History Smoking Status: Never smoker Hx Alcohol Use: No Hx Substance Use: No Physical Exam Vital Signs Last Vital Signs Temp 36.8 C 12/30/21 14:38 Pulse 80 12/30/21 14:38 Resp 20 12/30/21 14:38 BP 185/62 H 12/30/21 14:38 Pulse Ox 98 12/30/21 14:38 O2 Del Method 12/30/21 07:24 FiO2 21 12/29/21 20:10 Testing Laboratory Results 12/30/21 08:13 12/30/21 08:13 PT 12.3 Seconds (9.0-12.0) H 12/29/21 04:57 INR 1.2 (0.9-1.1) H 12/29/21 04:57 APTT 21.1 Seconds (21.0-31.0) 12/29/21 04:57 Urine Color Yellow 12/29/21 05:43 Urine Appearance Cloudy (Clear) A 12/29/21 05:43 Urine pH 7.5 (4.5-7.5) 12/29/21 05:43 Ur Specific D Lo 1.012 (1.000-1.030) 12/29/21 05:43 Urine Protein Negative (Negative) 12/29/21 05:43 Urine Glucose (UA) Negative (Negative) 12/29/21 05:43 Urine Ketones Negative (Negative) 12/29/21 05:43 Urine Nitrite Negative (Negative) 12/29/21 05:43 Ur Leukocyte Esterase Negative (Negative) 12/29/21 05:43 Urine WBC (Auto) 0 /hpf (0-5) 12/29/21 05:43 Urine RBC (Auto) 0-4 /hpf (0-4) 12/29/21 05:43 U Hyaline Cast (Auto) 0 /lpf (0-5) 12/29/21 05:43 U Epithel Cells (Auto) 5-10 /lpf (0-5) H 12/29/21 05:43 Urine Bacteria (Auto) Negative (Negative) 12/29/21 05:43 Electrocardiogram Date: 12/29/21 Findings: + SB @ (at 56) Chest X-Ray Date: 12/29/21 Findings: + NAD and + atherosclerosis of thoracic aorta Echocardiogram Date: 09/26/21 EF: 55% LV Function: normal RWMA: + none Other Findings: no atrial enlargement Valvular Disease: + no significant valvular disease, + AI (mild AR) and + MR (mild) Cardiac Catheterization Date: 04/24/11 Findings: + normal and + valve disease (mild mr;minimal ar) Intervention: + none
--- NOTE | 2021-12-30 15:15 | Communication Note ---
Date of Service: December 30, 2021 Discussed w/ DR Hurst pt's hypokalemia,which must be addressed and repleted prior to OR.I have received a recent Echocardiogram,w/c is unremarkable and cardiac cath report from April 2011 w/c shows normal coronary arteries.
--- NOTE | 2021-12-30 16:31 | Hospitalist Progress Note ---
Date of Service December 30, 2021 Assessment & Plan (1) Closed left hip fracture: Plan: Following a mechanical fall at her [place] residence X ray showed evidence of a nondisplaced intertrochanteric fracture of the left proximal femur Surgery has been deferred on account of hypokalemia tentatively re scheduled for tomorrow (2) HTN (hypertension): Plan: BP 185/62 today will continue home meds add po clonidine 0.1mg daily (3) Hypokalemia: Plan: Replete re check BMP Plan patient is medically optimized for surgery Admission and Anticipated Discharge Date Admission Date: December 29, 2021 Subjective patient seen and examined, was waiting for surgery Review of Systems Review of Systems: unreliable due to dementia Physical Exam Physical Exam: The patient is awake, alert confused, well developed and well nourished, normocephalic and atraumatic, lying in bed and in no acute distress. HEENT--PERRL, EOMI, mucous membranes and oropharynx mildly dry Neck--supple. No JVD. No bruits. Thyroid normal, trachea midline, no adenopathy. Heart--normal S1 and S2. No murmurs, rubs or gallops. Lungs--clear bilaterally, no respiratory distress, no accessory muscle use. Abdomen--normal bowel sounds and soft. Mild epigastric and left sided abdominal pain Extremities--no cyanosis or clubbing. No edema. Dermatologic--normal skin turgor, normal color, no abnormal lymph nodes, no r davin. Neurologic--cranial nerves II through XII grossly intact. Rheumatologic--normal range of motion. Psychiatric--normal affect. Results & Data Results & Data ([facility]) Vital Signs (Past 12 Hours) Vital Signs Temp Pulse Resp BP Pulse Ox O2 Del Method 12/30/21 14:38 98.2 F 80 20 185/62 H 98 12/30/21 07:20 Room Air 12/30/21 07:24 57 L 16 90 Room Air 12/30/21 07:14 98.1 F 55 L 16 138/59 L 93 Room Air PG Care Time/CCT Total # of Minutes Spent Total Time Spent with Patient: Total time spent is greater than 50% in coordination of care (as documented) at patient's floor/unit and/or counseling patient: Coding Level of Care Code 00316 Subseq Hosp Care Lvl 2 Diagnoses Closed left hip fracture S72.002A HTN (hypertension) I10 Hypokalemia E87.6 Time Spent (min) 35
[2021-12-30] MEDS ORDERED: cloNIDine HCL 0.1 MG TAB PO ONE (16:45)
[2021-12-30 17:12] LABS: BUN Creatinine Ratio 14.3 (10-20); Calcium 8.5 mg/dl (8.5-10.1); Creatinine Clr Calc Pharmacy 42.6 ml/min; Est GFR (African American) 83.3 ml/min; Est GFR (Non-African American) 71.9 ml/min; Potassium 2.8 mmol/L (3.5-5.1)
--- NOTE | 2021-12-30 17:14 | Cardiology Consultation ---
Date of Consultation December 30, 2021 Assessment & Plan (1) Preop cardiovascular exam: (2) Aortic insufficiency: (3) Paroxysmal supraventricular tachycardia: (4) HTN (hypertension): (5) Hypokalemia: (6) Sinus bradycardia: Plan ASSESSMENT/PLAN: 1. Preoperative cardiac assessment: Difficult to know her risk given dementia but based on no new reported chest pain or shortness of breath than what was previously reported by her bioinformatics research technician, and the fact that she is supposedly an avid walker, even at her nursing facility, likely low cardiac risk for upcoming orthopedic surgery. Would continue with her beta-grace therapy. Changed hold parameters for heart rate less than 50 however her heart rate is now more elevated given that she was not given diltiazem nor metoprolol this morning. 2. Sinus bradycardia: Mild sinus bradycardia on presenting ECG while on diltiaz em and metoprolol. Nursing staff held diltiazem and metoprolol due to hold parameters. Adjusted metoprolol parameter as above. To avoid bradycardia, okay to replace diltiazem with amlodipine, and can continue forward with beta- grace. 3. Hypertension: Blood pressure elevated. She did not receive her antihypertensive agents today as noted above. Consider replacing diltiazem with amlodipine. 4. Hypokalemia: As per primary hospitalist service. 5. Paroxysmal SVT: Details of this are not known but diagnosis mentioned in her outpatient cardiology note. Her daughter was not aware of this diagnosis. Can continue low-dose beta-grace. 6. Aortic regurgitation: Mild on echo. 7. Left femur fracture: As per orthopedics. Details of the fall are not well known to me at the time of this note. 8. Disposition: Cardiology will sign off. Please call with any further questions or concerns. Plan of care communicated with Dr. Hurst, of the primary hospitalist service. Thank you for allowing me to participate in the care of your patient. Please call for any other questions or concerns. Sincerely, Van Forrest M.D. History of Present Illness Reason for Consultation: Preoperative cardiac assessment Requesting Physician: Azar Hurst MD Attending Physician: Azar Hurst MD History of Present Illness Ms. Ambriz is a pleasant 81-year-old female with history significant for paroxysmal SVT/atrial tachycardia, mild aortic regurgitation, hypertension, and dementia. Her primary bioinformatics research technician is Dr. Bashir with [facility]. She herself is a poor historian given dementia. She does not recall why she is hospitalized. She does not recall falling and fracturing her left femur. She denies chest pain, shortness of breath, syncope, near-syncope, palpitations, edema. She states that she is able to ambulate without a cane or walker, and without cardiac symptoms. History was also obtained by reviewing records, including cardiology note on 03/19/2021 by her primary bioinformatics research technician, Dr. Bashir, and also an echo report from 09/26/2021 done with [facility]. Her daughter, Jenae, was contacted via telephone as well. She states that her mother has significant dementia and was getting lost even in her own home. She was placed in [facility] in October because of this. She states that her mom has complained of shortness of breath and chest pain in the past but believes it was for attention, given that her mother is lonely. The symptoms were also noted in her primary bioinformatics research technician's note and has been evaluated in the past with echo and a cardiac catheterization in 2001 with normal coronary arteries per cardiac catheterization report from 04/24/2011. Jenae's states that her mother walks often without issues. Merry roper's does not know the details of the fall. She has had the following studies/procedures: 1. Cardiac catheterization 04/24/2011 [facility]: Normal coronary arteries. Mild MR. Minimal AI. 2. Echo 09/26/2021 [facility]: Normal LV size and systolic function. EF 55%. Mild MR. Mild AI. Review of systems: As above and otherwise unobtainable due to dementia. Family history: Noncontributory. Social history: Quit smoking in the past. No alcohol. . Has 2 daughters, Jenae and Minerva however Minerva as not been part of their life for some time. She resides at [facility]. She was alone in her room. Allergies Allergy/AdvReac Type Severity Reaction Status Date / Time codeine Allergy Unknown Verified 12/29/21 07:11 shellfish derived Allergy Unknown UNKNOWN Verified 12/29/21 07:11 Home Medications Medication Instructions Recorded Confirmed Type ascorbate calcium (vitamin C) 500 500 mg PO DAILY 07/26/19 12/29/21 History mg tablet aspirin 81 mg tablet,delayed 81 mg PO DAILY 07/26/19 12/29/21 History release (Adult Low Dose Aspirin) calcitriol 0.25 mcg capsule 0.25 mcg PO DAILY 07/26/19 12/29/21 History cholecalciferol (vitamin D3) 50 50 mcg PO DAILY 07/26/19 12/29/21 History mcg (2,000 unit) capsule diltiazem HCl 180 mg 180 mg PO DAILY 07/26/19 12/29/21 History capsule,extended release 24 hr (Cardizem CD) magnesium 250 mg tablet 250 mg PO DAILY 07/26/19 12/29/21 History omeprazole 40 mg capsule,delayed 40 mg PO DAILY 07/26/19 12/29/21 History release fluticasone furoate 200 1 puffs inhalation DAILY #1 inhaler 11/07/19 12/29/21 Rx mcg-vilanterol 25 mcg/dose inhalation powder (Breo Ellipta) fexofenadine 180 mg tablet 180 mg PO DAILY #30 tabs 04/03/20 12/29/21 Rx ([facility] Allergy) azelastine 137 mcg (0.1 %) nasal 1 spray intranasal BID PRN 12/29/21 12/29/21 History spray aerosol Congestion budesonide 0.5 mg/2 mL suspension 0.5 mg inhalation UD 12/29/21 12/29/21 History for nebulization famotidine 20 mg tablet 20 mg PO DAILY 12/29/21 12/29/21 History formoterol fumarate 20 mcg/2 mL 20 mcg inhalation UD 12/29/21 12/29/21 History solution for nebulization (Perforomist) metoprolol tartrate 25 mg tablet 25 mg PO BID 12/29/21 12/29/21 History sertraline 100 mg tablet 100 mg PO DAILY 12/29/21 12/29/21 History Patient History Medical History (Updated 12/30/21 @ 17:31 by Hebert Forrest MD) Achalasia Anxiety Aortic insufficiency Asthma Chest pain Depression Diverticulosis Dyspnea Essential hypertension Gastroparesis GERD (gastroesophageal reflux disease) Hiatal hernia Kidney disease, chronic, stage III (GFR 30-59 ml/min) Mitral valve disorder Palpitations Paroxysmal supraventricular tachycardia Premature beats Pure hyperglyceridemia Seborrheic keratosis Skin cancer Tachycardia Thyroid nodule Surgical History H/O removal of cyst H/O total hysterectomy History of appendectomy History of cardiac cath History of cholecystectomy History of tonsillectomy and adenoidectomy Family History Brother Hypertension Diabetes Lung cancer Sister Hypertension Social History Smoking Status: Never smoker Hx Alcohol Use: No Hx Substance Use: No Preferred Language: Serbian Communication Ability: Effective 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 Alert. Oriented to self. HEENT: Anicteric sclera. Neck: No JVD. No bruits. Normal carotid upstrokes bilaterally. Cardiac: PMI was nondisplaced. No ventricular heave. Regular. Normal S1-S2. No murmurs, rubs, or gallops. Pulmonary: Clear to auscultation bilaterally without wheezes, rales, or rhonchi. Abdomen: Soft, nontender, nondistended, with normoactive bowel sounds. No bruits noted. Extremities: 2+ radial pulses bilaterally. 2+ posterior tibialis pulses bilaterally. No edema or cyanosis. Psychiatric: Affect appears appropriate. Results & Data ([facility]) Vital Signs (Past 12 Hours) Vital Signs Temp Pulse Resp BP Pulse Ox O2 Del Method 12/30/21 14:38 36.8 C 80 20 185/62 H 98 12/30/21 07:20 Room Air 12/30/21 07:24 57 L 16 90 Room Air 12/30/21 07:14 36.7 C 55 L 16 138/59 L 93 Room Air Laboratory Results Laboratory Results - last 24 hr 12/30/21 12/30/21 12/30/21 08:13 08:13 16:36 WBC 8.36 RBC 3.18 L Hgb 10.2 L Hct 28.1 L MCV 88.4 MCH 32.1 MCHC 36.3 H RDW Std Deviation 37.9 RDW Coeff of Lc 11.7 Plt Count 169 MPV 11.1 Sodium 141 140 Potassium 2.7 L 2.8 L Chloride 109 H 110 H Carbon Dioxide 25 22 Anion Gap 7 8 BUN 11 11 Creatinine 0.81 D 0.77 Est Cr Clr Drug Dosing 40.5 42.6 Est GFR ( Amer) 78.4 83.3 Est GFR (Non-Af Amer) 67.6 71.9 BUN/Creatinine Ratio 13.6 14.3 Glucose 93 103 H Calcium 8.4 L 8.5 Diagnostic Findings Cardiac catheterization and echo reports reviewed as noted above in HPI. ECG personally reviewed 12/29/2021: Sinus bradycardia 56 beats per minute. Medications Administered Current Inpatient Medications Acetaminophen (Acetaminophen 325 Mg Tab) 650 mg PO Q4H PRN PRN Reason: pain/fever Stop: 01/28/22 10:25 Last Admin: 12/30/21 12:31 Dose: 650 mg Ascorbic Acid (Ascorbic Acid 500 Mg Tab) 500 mg PO DAILY VEE Stop: 01/28/22 10:44 Last Admin: 12/30/21 08:26 Dose: 500 mg Aspirin (Aspirin 81 Mg Ectab) 81 mg PO DAILY VEE Stop: 01/28/22 10:25 Last Admin: 12/30/21 08:28 Dose: 81 mg Calcitriol (Calcitriol 0.25 Mcg Capsule) 0.25 mcg PO DAILY VEE Stop: 01/28/22 10:25 Last Admin: 12/30/21 08:26 Dose: 0.25 mcg Clonidine HCl (Clonidine Hcl 0.1 Mg Tab) 0.1 mg PO QAM VEE Stop: 01/30/22 08:59 Diltiazem HCl (Diltiazem Hcl 180 Mg Capcr) 180 mg PO DAILY VEE Stop: 01/28/22 10:25 Last Admin: 12/30/21 08:28 Dose: Not Given Famotidine (Famotidine 20 Mg Tab) 20 mg PO DAILY VEE Stop: 01/28/22 10:25 Last Admin: 12/30/21 08:28 Dose: 20 mg Fexofenadine HCl (Fexofenadine Hcl 180 Mg Tab) 180 mg PO DAILY VEE Stop: 01/28/22 10:25 Last Admin: 12/30/21 08:28 Dose: 180 mg Fluticasone/Vilanterol (Fluticasone/Vilanterol 100/25mcg 14 Puffs/Inhaler) 1 puffs INH DAILY VEE Stop: 01/30/22 08:59 Heparin Sodium (Porcine) (Heparin Sod 5,000 Unit/0.5 Ml Vial) 5,000 units SQ Q8 VEE Stop: 01/28/22 21:59 Last Admin: 12/30/21 13:28 Dose: Not Given Sodium Chloride (Nss) 1,000 mls @ 125 mls/hr IV .Q8H VEE Stop: 01/28/22 17:59 Last Admin: 12/30/21 11:31 Dose: 125 mls/hr Magnesium Oxide (Magnesium Oxide 400 Mg Tab) 400 mg PO DAILY VEE Stop: 01/28/22 10:44 Last Admin: 12/30/21 08:27 Dose: 400 mg Metoprolol Tartrate (Metoprolol Tartrate 25 Mg Tab) 25 mg PO BID VEE Stop: 01/28/22 10:25 Last Admin: 12/30/21 08:27 Dose: Not Given Pantoprazole Sodium (Pantoprazole 40 Mg Tab) 40 mg PO DAILY VEE Stop: 01/28/22 10:44 Last Admin: 12/30/21 08:28 Dose: 40 mg Sertraline HCl (Sertraline Hcl 100 Mg Tablet) 100 mg PO DAILY VEE Stop: 01/28/22 10:25 Last Admin: 12/30/21 08:29 Dose: 100 mg Vitamin D (Cholecalciferol 1,000 Units 25 Mcg Tab) 2,000 units PO DAILY VEE Stop: 01/28/22 10:44 Last Admin: 12/30/21 08:27 Dose: 2,000 units PG Care Time/CCT Total # of Minutes Spent Total Time Spent with Patient: Total time spent is greater than 50% in coordination of care (as documented) at patient's floor/unit and/or counseling patient: Coding Level of Care Code 51312 Initial Inpt Care Lvl 3 Diagnoses Preop cardiovascular exam Z01.810 Aortic insufficiency I35.1 Paroxysmal supraventricular tachycardia I47.1 HTN (hypertension) I10 Hypokalemia E87.6 Sinus bradycardia R00.1
[2021-12-30] MEDS ORDERED: amLODIPine BESYLATE 5 MG TAB PO ONE (17:34)
--- NOTE | 2021-12-30 20:58 | Orthopedic Consultation ---
Date of Consultation December 30, 2021 Assessment & Plan (1) Closed left hip fracture: Plan NWB LLE bedrest pain control SCDs Med mgmt/optimization Plan for Left hip cephalomedullary nail when medically cleared for surgery. Surgery cancelled today due to pt not being medically cleared for OR. Discussed operative mgmt with daughter Debra RAY who is in agreement with surgical intervention. History of Present Illness Attending Physician: Azar Hurst MD History of Present Illness 81 yo F presenting [facility] ED after sustaining a GLF at her nursing facility. Pt demented at baseline, details obtained via discussion with her daughter Debra who is POA. Was found to have a displaced Left intertrochanteric femur fracture admitted to medical service with ortho consulted for operative mgmt. Allergies Allergy/AdvReac Type Severity Reaction Status Date / Time codeine Allergy Unknown Verified 12/29/21 07:11 shellfish derived Allergy Unknown UNKNOWN Verified 12/29/21 07:11 Home Medications Medication Instructions Recorded Confirmed Type ascorbate calcium (vitamin C) 500 500 mg PO DAILY 07/26/19 12/29/21 History mg tablet aspirin 81 mg tablet,delayed 81 mg PO DAILY 07/26/19 12/29/21 History release (Adult Low Dose Aspirin) calcitriol 0.25 mcg capsule 0.25 mcg PO DAILY 07/26/19 12/29/21 History cholecalciferol (vitamin D3) 50 50 mcg PO DAILY 07/26/19 12/29/21 History mcg (2,000 unit) capsule diltiazem HCl 180 mg 180 mg PO DAILY 07/26/19 12/29/21 History capsule,extended release 24 hr (Cardizem CD) magnesium 250 mg tablet 250 mg PO DAILY 07/26/19 12/29/21 History omeprazole 40 mg capsule,delayed 40 mg PO DAILY 07/26/19 12/29/21 History release fluticasone furoate 200 1 puffs inhalation DAILY #1 inhaler 11/07/19 12/29/21 Rx mcg-vilanterol 25 mcg/dose inhalation powder (Breo Ellipta) fexofenadine 180 mg tablet 180 mg PO DAILY #30 tabs 04/03/20 12/29/21 Rx ([facility] All[facility]) azelastine 137 mcg (0.1 %) nasal 1 spray intranasal BID PRN 12/29/21 12/29/21 History spray aerosol Congestion budesonide 0.5 mg/2 mL suspension 0.5 mg inhalation UD 12/29/21 12/29/21 History for nebulization famotidine 20 mg tablet 20 mg PO DAILY 12/29/21 12/29/21 History formoterol fumarate 20 mcg/2 mL 20 mcg inhalation UD 12/29/21 12/29/21 History solution for nebulization (Perforomist) metoprolol tartrate 25 mg tablet 25 mg PO BID 12/29/21 12/29/21 History sertraline 100 mg tablet 100 mg PO DAILY 12/29/21 12/29/21 History Patient History Medical History (Updated 12/30/21 @ 17:31 by Hebert Forrest MD) Achalasia Anxiety Aortic insufficiency Asthma Chest pain Depression Diverticulosis Dyspnea Essential hypertension Gastroparesis GERD (gastroesophageal reflux disease) Hiatal hernia Kidney disease, chronic, stage III (GFR 30-59 ml/min) Mitral valve disorder Palpitations Paroxysmal supraventricular tachycardia Premature beats Pure hyperglyceridemia Seborrheic keratosis Skin cancer Tachycardia Thyroid nodule Surgical History H/O removal of cyst H/O total hysterectomy History of appendectomy History of cardiac cath History of cholecystectomy History of tonsillectomy and adenoidectomy Family History Brother Hypertension Diabetes Lung cancer Sister Hypertension Social History Smoking Status: Never smoker Hx Alcohol Use: No Hx Substance Use: No Preferred Language: Qatari Communication Ability: Effective 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
[2021-12-31] MEDS: SODIUM CHLORIDE 0.9% 1,000 ML IV SCH ×3 (03:04→18:33)
[2021-12-31] MEDS: HEPARIN SOD 5,000 UNIT/0.5 ML VIAL SQ SCH ×3 (05:53→21:38)
[2021-12-31 07:02] LABS: BUN Creatinine Ratio 12.9 (10-20); Calcium 8.3 mg/dl (8.5-10.1); Creatinine Clr Calc Pharmacy 46.9 ml/min; Est GFR (African American) 93.5 ml/min; Est GFR (Non-African American) 80.7 ml/min
[2021-12-31] MEDS ORDERED: POTASSIUM CHLORIDE CRTAB 20 MEQ TABCR PO STA (07:36)
[2021-12-31] MEDS: POTASSIUM CHLORIDE / WTR 10 MEQ/100 ML PLCT IV SCH ×3 (07:50→09:45)
[2021-12-31] MEDS: METOPROLOL TARTRATE 25 MG TAB PO SCH ×2 (07:56→19:50)
[2021-12-31] MEDS: ASPIRIN 81 MG ECTAB PO SCH (07:56)
[2021-12-31] MEDS: PANTOprazole 40 MG TAB PO SCH (07:57)
[2021-12-31] MEDS: SERTRALINE HCL 100 MG TABLET PO SCH (07:57)
[2021-12-31] MEDS: amLODIPine BESYLATE 5 MG TAB PO SCH (07:57)
[2021-12-31] MEDS: MAGNESIUM OXIDE 400 MG TAB PO SCH (07:58)
[2021-12-31] MEDS: CHOLECALCIFEROL 1,000 UNITS 25 MCG TAB PO SCH (07:58)
[2021-12-31] MEDS: CALCITRIOL 0.25 MCG CAPSULE PO SCH (07:58)
[2021-12-31] MEDS: ASCORBIC ACID 500 MG TAB PO SCH (07:59)
[2021-12-31] MEDS: cloNIDine HCL 0.1 MG TAB PO SCH (07:59)
[2021-12-31] MEDS: FEXOFENADINE HCL 180 MG TAB PO SCH (07:59)
[2021-12-31] MEDS: FAMOTIDINE 20 MG TAB PO SCH (08:00)
[2021-12-31] MEDS: ACETAMINOPHEN 325 MG TAB PO PRN ×3 (08:49→19:46)
[2021-12-31] MEDS: FLUTICASONE/VILANTEROL 100/25MCG 14 PUFFS/INHALER INH SCH (09:22)
--- NOTE | 2021-12-31 10:10 | Communication Note ---
Date of Service: December 31, 2021 Pt resting comfortably. Currently has one on one nursing to watch over her. Appears comfortable. Plan for surgery tomorrow with Dr. Landers.
[2021-12-31 11:43] LABS: BUN Creatinine Ratio 12.3 (10-20); Calcium 8.2 mg/dl (8.5-10.1); Creatinine Clr Calc Pharmacy 44.9 ml/min; Est GFR (African American) 88.9 ml/min; Est GFR (Non-African American) 76.7 ml/min; Potassium 3.5 mmol/L (3.5-5.1)
--- NOTE | 2021-12-31 13:44 | Hospitalist Progress Note ---
Date of Service December 31, 2021 Assessment & Plan (1) Closed left hip fracture: Plan: Following a mechanical fall at [place] residence X ray showed evidence of a nondisplaced intertrochanteric fracture of the left proximal femur Surgery has been deferred on account of hypokalemia tentatively re scheduled for tomorrow (2) HTN (hypertension): Plan: BP 157/72 today will continue home meds add po clonidine 0.1mg daily (3) Hypokalemia: Plan: Replete re check BMP Plan patient is medically optimized for surgery Admission and Anticipated Discharge Date Admission Date: December 29, 2021 Subjective patient seen and examined, surgery has been postponed till tomorrow Review of Systems Review of Systems: unreliable due to dementia Physical Exam Physical Exam: The patient is awake, alert confused, well developed and well nourished, normocephalic and atraumatic, lying in bed and in no acute distress. HEENT--PERRL, EOMI, mucous membranes and oropharynx mildly dry Neck--supple. No JVD. No bruits. Thyroid normal, trachea midline, no adenopathy. Heart--normal S1 and S2. No murmurs, rubs or gallops. Lungs--clear bilaterally, no respiratory distress, no accessory muscle use. Abdomen--normal bowel sounds and soft. Mild epigastric and left sided abdominal pain Extremities--no cyanosis or clubbing. No edema. Dermatologic--normal skin turgor, normal color, no abnormal lymph nodes, no rash. Neurologic--cranial nerves II through XII grossly intact. Rheumatologic--normal range of motion. Psychiatric--normal affect. Results & Data Results & Data ([facility]) Vital Signs (Past 12 Hours) Vital Signs Temp Pulse Resp BP BP Pulse Ox O2 Del Method 12/31/21 12:33 59 L 18 157/72 H 96 Room Air 12/31/21 11:37 98.1 F 62 18 162/74 H 97 Room Air 12/31/21 07:20 Room Air 12/31/21 07:27 97.7 F 72 22 166/69 H 95 Room Air PG Care Time/CCT Total # of Minutes Spent Total Time Spent with Patient: Total time spent is greater than 50% in coordination of care (as documented) at patient's floor/unit and/or counseling patient: Coding Level of Care Code 30041 Subseq Hosp Care Lvl 2 Diagnoses Closed left hip fracture S72.002A HTN (hypertension) I10 Hypokalemia E87.6 Time Spent (min) 35
[2022-01-01] MEDS: ACETAMINOPHEN 325 MG TAB PO PRN (02:34)
[2022-01-01] MEDS: SODIUM CHLORIDE 0.9% 1,000 ML IV SCH ×2 (02:42→10:57)
[2022-01-01] MEDS: HEPARIN SOD 5,000 UNIT/0.5 ML VIAL SQ SCH ×2 (06:15→15:03)
[2022-01-01] MEDS ORDERED: POTASSIUM CHLORIDE CRTAB 20 MEQ TABCR PO STA (07:51)
[2022-01-01] MEDS: METOPROLOL TARTRATE 25 MG TAB PO SCH ×2 (08:32→20:08)
[2022-01-01] MEDS: POTASSIUM CHLORIDE / WTR 10 MEQ/100 ML PLCT IV SCH ×6 (08:50→20:08)
[2022-01-01 09:11] LABS: BUN Creatinine Ratio 11.1 (10-20); Calcium 8.2 mg/dl (8.5-10.1); Creatinine Clr Calc Pharmacy 52.1 ml/min; Est GFR (African American) 96.8 ml/min; Est GFR (Non-African American) 83.5 ml/min; Potassium 2.9 mmol/L (3.5-5.1)
[2022-01-01] MEDS: ASPIRIN 81 MG ECTAB PO SCH (09:13)
[2022-01-01] MEDS: cloNIDine HCL 0.1 MG TAB PO SCH (09:13)
[2022-01-01] MEDS: amLODIPine BESYLATE 5 MG TAB PO SCH (09:13)
[2022-01-01] MEDS: ASCORBIC ACID 500 MG TAB PO SCH (09:13)
[2022-01-01] MEDS: MAGNESIUM OXIDE 400 MG TAB PO SCH (09:14)
[2022-01-01] MEDS: SERTRALINE HCL 100 MG TABLET PO SCH (09:14)
[2022-01-01] MEDS: FEXOFENADINE HCL 180 MG TAB PO SCH (09:14)
[2022-01-01] MEDS: CHOLECALCIFEROL 1,000 UNITS 25 MCG TAB PO SCH (09:14)
[2022-01-01] MEDS: FAMOTIDINE 20 MG TAB PO SCH (09:14)
[2022-01-01] MEDS: PANTOprazole 40 MG TAB PO SCH (09:14)
[2022-01-01] MEDS: CALCITRIOL 0.25 MCG CAPSULE PO SCH (09:14)
[2022-01-01] MEDS: FLUTICASONE/VILANTEROL 100/25MCG 14 PUFFS/INHALER INH SCH (09:25)
[2022-01-01] MEDS ORDERED: MIDAZOLAM HCL 1 MG/ML 2ML VIAL ONE (11:55)
[2022-01-01] MEDS ORDERED: LIDOCAINE 2% MPF LOCAL 5 ML VIAL INFIL ONE (11:55)
[2022-01-01] MEDS ORDERED: PROPOFOL IV EMULSION 10 MG/ML 20 ML VIAL IV ONE ×2 (11:55→14:35)
[2022-01-01] MEDS: SODIUM CHLORIDE 0.9% 1000ML 1,000 ML IV SCH ×2 (12:02→17:12)
--- NOTE | 2022-01-01 12:45 | Hospitalist Progress Note ---
Date of Service January 01, 2022 Assessment & Plan (1) Closed left hip fracture: Plan: Following a mechanical fall at her [place] residence X ray showed evidence of a nondisplaced intertrochanteric fracture of the left proximal femur Surgery scheduled for today (2) HTN (hypertension): Plan: BP 141/65 today will continue home meds add po clonidine 0.1mg daily (3) Hypokalemia: Plan: Replete re check BMP Plan patient is medically optimized for surgery Admission and Anticipated Discharge Date Admission Date: December 29, 2021 Subjective patient seen and examined, appears comfortable, confused due to dementia Review of Systems Review of Systems: unreliable due to dementia Physical Exam Physical Exam: The patient is awake, alert confused, well developed and well nourished, normocephalic and atraumatic, lying in bed and in no acute distress. HEENT--PERRL, EOMI, mucous membranes and oropharynx mildly dry Neck--supple. No JVD. No bruits. Thyroid normal, trachea midline, no adenopathy. Heart--normal S1 and S2. No murmurs, rubs or gallops. Lungs--clear bilaterally, no respiratory distress, no accessory muscle use. Abdomen--normal bowel sounds and soft. Mild epigastric and left sided abdominal pain Extremities--no cyanosis or clubbing. No edema. Dermatologic--normal skin turgor, normal color, no abnormal lymph nodes, no rash. Neurologic--cranial nerves II through XII grossly intact. Rheumatologic--normal range of motion. Psychiatric--normal affect. Results & Data Results & Data ([facility]) Vital Signs (Past 12 Hours) Vital Signs Temp Pulse Resp BP BP Pulse Ox O2 Del Method 01/01/22 07:15 Room Air 01/01/22 09:11 59 L 141/65 H 01/01/22 07:40 98.2 F 54 L 16 163/59 H 95 Room Air PG Care Time/CCT Total # of Minutes Spent Total Time Spent with Patient: Total time spent is greater than 50% in coordination of care (as documented) at patient's floor/unit and/or counseling patient: Coding Level of Care Code 66156 Subseq Hosp Care Lvl 2 Diagnoses Closed left hip fracture S72.002A HTN (hypertension) I10 Hypokalemia E87.6 Time Spent (min) 35
[2022-01-01] MEDS ORDERED: ceFAZolin 1000MG 1,000 MG/7.5 ML SYR IV ONE (13:34)
[2022-01-01] MEDS ORDERED: ePHEDrine sulfate 50 MG/ML AMP IV PRN (13:50)
[2022-01-01] MEDS ORDERED: ATROPINE SULFATE 0.1 MG/ML 10ML SYR IV PRN (13:50)
--- NOTE | 2022-01-01 13:50 | History & Physical Bridge Note ---
Date of Service January 01, 2022 History & Physical Bridge Note I have examined the patient, reviewed the History & Physical and in the interval since the performance of the History & Physical I have noted the following changes of clinical significance: no changes noted
--- NOTE | 2022-01-01 14:30 | Anesthesiology Consultation ---
Date of Service January 01, 2022 History Surgery Operation Date: 12/30/21 16:00 Proposed Procedures p Intramedullary Mauro Femur - Angelito Landers DO Operation Date: 01/01/22 08:20 Proposed Procedures p Left Troch Nail - Alex Sotelo MD Height/Weight Height: 5 ft 5 in Weight: 47.9 kg Allergies Allergy/AdvReac Type Severity Reaction Status Date / Time codeine Allergy Unknown Verified 12/29/21 07:11 shellfish derived Allergy Unknown UNKNOWN Verified 12/29/21 07:11 Medications Home Medications Medication Instructions Recorded Confirmed Last Taken ascorbate calcium (vitamin C) 500 500 mg PO DAILY 07/26/19 12/29/21 Unknown mg tablet aspirin 81 mg tablet,delayed 81 mg PO DAILY 07/26/19 12/29/21 Unknown release (Adult Low Dose Aspirin) calcitriol 0.25 mcg capsule 0.25 mcg PO DAILY 07/26/19 12/29/21 Unknown cholecalciferol (vitamin D3) 50 50 mcg PO DAILY 07/26/19 12/29/21 Unknown mcg (2,000 unit) capsule diltiazem HCl 180 mg 180 mg PO DAILY 07/26/19 12/29/21 Unknown capsule,extended release 24 hr (Cardizem CD) magnesium 250 mg tablet 250 mg PO DAILY 07/26/19 12/29/21 Unknown omeprazole 40 mg capsule,delayed 40 mg PO DAILY 07/26/19 12/29/21 Unknown release fluticasone furoate 200 1 puffs inhalation DAILY #1 inhaler 11/07/19 12/29/21 Unknown mcg-vilanterol 25 mcg/dose inhalation powder (Breo Ellipta) fexofenadine 180 mg tablet 180 mg PO DAILY #30 tabs 04/03/20 12/29/21 Unknown (Lara Allergy) azelastine 137 mcg (0.1 %) nasal 1 spray intranasal BID PRN 12/29/21 12/29/21 Unknown spray aerosol Congestion budesonide 0.5 mg/2 mL suspension 0.5 mg inhalation UD 12/29/21 12/29/21 Unknown for nebulization famotidine 20 mg tablet 20 mg PO DAILY 12/29/21 12/29/21 Unknown formoterol fumarate 20 mcg/2 mL 20 mcg inhalation UD 12/29/21 12/29/21 Unknown solution for nebulization (Perforomist) metoprolol tartrate 25 mg tablet 25 mg PO BID 12/29/21 12/29/21 Unknown sertraline 100 mg tablet 100 mg PO DAILY 12/29/21 12/29/21 Unknown Active Medications Generic Name Dose Route Start Last Admin Trade Name Freq PRN Reason Stop Dose Admin Acetaminophen 650 mg 12/29/21 10:26 01/01/22 02:34 Acetaminophen 325 Mg Tab PO 01/28/22 10:25 650 mg Q4H PRN Administration pain/fever Amlodipine Besylate 5 mg 12/31/21 09:00 01/01/22 09:13 Amlodipine Besylate 5 Mg Tab PO 01/30/22 08:59 5 mg QAM VEE Administration Ascorbic Acid 500 mg 12/29/21 10:45 01/01/22 09:13 Ascorbic Acid 500 Mg Tab PO 01/28/22 10:44 Not Given DAILY VEE Aspirin 81 mg 12/29/21 10:26 01/01/22 09:13 Aspirin 81 Mg Ectab PO 01/28/22 10:25 Not Given DAILY VEE Calcitriol 0.25 mcg 12/29/21 10:26 01/01/22 09:14 Calcitriol 0.25 Mcg Capsule PO 01/28/22 10:25 Not Given DAILY VEE Clonidine HCl 0.1 mg 12/31/21 09:00 01/01/22 09:13 Clonidine Hcl 0.1 Mg Tab PO 01/30/22 08:59 0.1 mg QAM VEE Administration Famotidine 20 mg 12/29/21 10:26 01/01/22 09:14 Famotidine 20 Mg Tab PO 01/28/22 10:25 Not Given DAILY VEE Fexofenadine HCl 180 mg 12/29/21 10:26 01/01/22 09:14 Fexofenadine Hcl 180 Mg Tab PO 01/28/22 10:25 Not Given DAILY VEE Fluticasone/Vilanterol 1 puffs 12/31/21 09:00 01/01/22 09:25 Fluticasone/Vilanterol 100/25mcg 14 Puffs/Inhaler INH 01/30/22 08:59 1 puffs DAILY VEE Administration Heparin Sodium (Porcine) 5,000 units 12/29/21 22:00 01/01/22 06:15 Heparin Sod 5,000 Unit/0.5 Ml Vial SQ 01/28/22 21:59 5,000 units Q8 VEE Administration Sodium Chloride 1,000 mls @ 125 mls/hr 01/01/22 11:15 01/01/22 12:02 Nss 1000ml IV 01/31/22 11:14 Not Given .Q8H VEE Magnesium Oxide 400 mg 12/29/21 10:45 01/01/22 09:14 Magnesium Oxide 400 Mg Tab PO 01/28/22 10:44 Not Given DAILY VEE Metoprolol Tartrate 25 mg 12/29/21 10:26 01/01/22 08:32 Metoprolol Tartrate 25 Mg Tab PO 01/28/22 10:25 Not Given BID VEE Pantoprazole Sodium 40 mg 12/29/21 10:45 01/01/22 09:14 Pantoprazole 40 Mg Tab PO 01/28/22 10:44 Not Given DAILY VEE Sertraline HCl 100 mg 12/29/21 10:26 01/01/22 09:14 Sertraline Hcl 100 Mg Tablet PO 01/28/22 10:25 Not Given DAILY VEE Vitamin D 2,000 units 12/29/21 10:45 01/01/22 09:14 Cholecalciferol 1,000 Units 25 Mcg Tab PO 01/28/22 10:44 Not Given DAILY VEE NPO Date Last Intake of Fluids: 01/01/22 Time Last Intake of Fluids: 02:30 Last Intake of Fluids Comment: sip with tylenol Date Last Intake of Solids: 12/31/21 Time Last Intake of Solids: 23:00 Past Medical History Medical History (Updated 12/30/21 @ 17:31 by Hebert Forrest MD) Achalasia Anxiety Aortic insufficiency Asthma Chest pain Depression Diverticulosis Dyspnea Essential hypertension Gastroparesis GERD (gastroesophageal reflux disease) Hiatal hernia Kidney disease, chronic, stage III (GFR 30-59 ml/min) Mitral valve disorder Palpitations Paroxysmal supraventricular tachycardia Premature beats Pure hyperglyceridemia Seborrheic keratosis Skin cancer Tachycardia Thyroid nodule Past Family History Family History Brother Hypertension Diabetes Lung cancer Sister Hypertension Past Surgical History Surgical History H/O removal of cyst H/O total hysterectomy History of appendectomy History of cardiac cath History of cholecystectomy History of tonsillectomy and adenoidectomy Social History Smoking Status: Never smoker Hx Alcohol Use: No Hx Substance Use: No Physical Exam Vital Signs Last Vital Signs Temp 36.6 C 01/01/22 12:55 Pulse 65 01/01/22 12:55 Resp 20 01/01/22 12:55 BP 163/54 H 01/01/22 12:55 Pulse Ox 96 01/01/22 12:55 O2 Del Method 01/01/22 12:55 FiO2 21 12/29/21 20:10 Testing Laboratory Results 12/30/21 08:13 01/01/22 12:43 PT 12.3 Seconds (9.0-12.0) H 12/29/21 04:57 INR 1.2 (0.9-1.1) H 12/29/21 04:57 APTT 21.1 Seconds (21.0-31.0) 12/29/21 04:57 Urine Color Yellow 12/29/21 05:43 Urine Appearance Cloudy (Clear) A 12/29/21 05:43 Urine pH 7.5 (4.5-7.5) 12/29/21 05:43 Ur Specific [place] 1.012 (1.000-1.030) 12/29/21 05:43 Urine Protein Negative (Negative) 12/29/21 05:43 Urine Glucose (UA) Negative (Negative) 12/29/21 05:43 Urine Ketones Negative (Negative) 12/29/21 05:43 Urine Nitrite Negative (Negative) 12/29/21 05:43 Ur Leukocyte Esterase Negative (Negative) 12/29/21 05:43 Urine WBC (Auto) 0 /hpf (0-5) 12/29/21 05:43 Urine RBC (Auto) 0-4 /hpf (0-4) 12/29/21 05:43 U Hyaline Cast (Auto) 0 /lpf (0-5) 12/29/21 05:43 U Epithel Cells (Auto) 5-10 /lpf (0-5) H 12/29/21 05:43 Urine Bacteria (Auto) Negative (Negative) 12/29/21 05:43 Blood Type B Positive 12/31/21 20:53 Antibody Screen NEGATIVE 12/31/21 20:53 Electrocardiogram Date: 12/29/21 Findings: + SB @ (at 56) Chest X-Ray Date: 12/29/21 Findings: + NAD and + atherosclerosis of thoracic aorta Echocardiogram Date: 09/26/21 EF: 55% LV Function: normal RWMA: + none Other Findings: no atrial enlargement Valvular Disease: + no significant valvular disease, + AI (mild AR) and + MR (mild) Cardiac Catheterization Date: 04/24/11 Findings: + normal and + valve disease (mild mr;minimal ar) Intervention: + none
[2022-01-01] MEDS ORDERED: PHENYLEPHRINE 100MCG/ML 5ML SYR ONE (14:35)
--- NOTE | 2022-01-01 15:26 | Operative Report ---
Post Operative Report Pre & Post Diagnosis Operation Date: 12/30/21 16:00 <No data on this case meets the specified criteria> Operation Date: 01/01/22 08:20 Pre-Op Diagnosis: Closed intertrochanteric left hip fracture Post-Op Diagnosis: Closed intertrochanteric left hip fracture I identified the patient and participated in the time-out.: Yes Procedure Operation Date: 12/30/21 16:00 <No data on this case meets the specified criteria> Operation Date: 01/01/22 08:20 Actual Procedures p internal fixation of left intertrochanteric fracture with a trochanteric femoral Nail(Left) - Alex Sotelo MD Surgeon Alex Sotelo MD [employer] Estimated Blood Loss 15 Findings Consistent with Post-Op Diagnosis Specimens None Drains None Anesthesia Type Spinal MAC Complications none Disposition Disposition: Recovery Room Indications 81year-old female with mildly angulated and displaced intertrochanteric fracture of the left hip 2 part fracture Description of Procedure Patient was taken to the operating room and anesthetized under spinal MAC regional block anesthesia. The patient was placed supine on a fracture table. The leg was placed into boot traction and the well leg was placed into a well- padded leg holding device in flexion and internal rotation. The reduction was performed by abducting the hip placing longitudinal traction in the external rotated position then internally rotation after traction was placed and then adducting the hip. An anatomic reduction was obtained. The hip was sterilely prepped and draped in usual fashion using ChloraPrep. Fluoroscopy was used throughout the case to assist in the procedure. A lateral incision was made over the hip. The skin was incised sharply. The subcutaneous fat was divided down to the fascia. The fascia was divided longitudinally and the gluteus medius was split with a Jj elevator enough to identify the tip of the greater trochanter. A guidewire was placed under fluoroscopic guidance and then the drill was used to open up the canal. We chose a 12 mm Synthes trochanteric femoral nail 130 degree neck angle 170 mm length. The insertion device was used to insert the best and seated at the appropriate depth and then the second incision was made for the helical blade. The guide was placed and the guidewire was advanced under fluoroscopic guidance into the femoral neck and head. The guidewire placement centered on the lateral view and slightly below center on the AP view. The reamers were used and then the fenestrated 85 mm titanium helical blade was impacted into the neck and head fragment. The bone quality was good. The proximal locking screw was tightened fully and then backed off 1 turn to allow gliding and compression. The compression device was used after traction was let off get good compression of the fracture. Another small incision was made and the guide for the distal locking screw was advanced to the bone and the drill used and the measurement taken. A 5 x 32 millimeter locking bolt was then placed with good fixation. Fluoroscopy views were obtained to document reduction AP and lateral views. All wounds were irrigated. The fascia was closed with interrupted #1 Vicryl sutures. The subcutaneous tissues were closed with 2-0 Vicryl sutures. The skin was closed with cha and sterile dressings were applied. The patient tolerated the procedure well. My physician customer care assistant Wing GOSS participated as first calender worker and was integral part in all aspects of the procedure throughout the procedure including patient positioning, prepping and draping, soft tissue retraction and wound closure and will participate in the postoperative care of the patient. I attest to the content of the Intraoperative Record and any orders documented therein. Any exceptions are noted below.
--- NOTE | 2022-01-01 15:55 | Fluoroscopy Report ---
INTRAOPERATIVE RADIOGRAPHS CLINICAL HISTORY: Open reduction and internal fixation of the left proximal femur. Fluoroscopy time: 72 seconds. FINDINGS: 6 spot fluoroscopic images of the left hip are correlated with radiographs dated 12/29/2021. Intertrochanteric and intramedullary nails are placed transfixing an intertrochanteric fracture. Stephanie r-anatomic alignment is maintained. A single cortical lag screw transfixes the distal end of the intr amedullary nail. IMPRESSION: Intraoperative images from open reduction and internal fixation of the left proximal femu r as above. Electronically signed by: Ede Jaramillo M.D. 01/01/2022 3:54 PM
--- NOTE | 2022-01-01 15:56 | Anesthesiology Progress Note ---
Date of Service January 01, 2022 Anesthesia Post Procedure Vital Signs Vital Signs: Temp Pulse Pulse Resp BP BP Pulse Ox 01/01/22 15:38 36.2 C L 79 22 145/63 H 100 01/01/22 12:55 36.6 C 65 20 163/54 H 96 01/01/22 07:15 01/01/22 09:11 59 L 141/65 H 01/01/22 07:40 36.8 C 54 L 16 163/59 H 95 12/31/21 20:59 36.5 C 63 16 154/56 H 96 12/31/21 19:51 61 167/65 H O2 Del Method O2 Flow Rate 01/01/22 15:38 Oxymask 6 01/01/22 12:55 Room Air 01/01/22 07:15 Room Air 01/01/22 09:11 01/01/22 07:40 Room Air 12/31/21 20:59 Room Air 12/31/21 19:51 Pain Intensity Left Hip: Pain Intensity: 5
[2022-01-01] MEDS ORDERED: HYDROmorphone INJ 0.5 MG/0.5 ML SYR IV PRN (17:05)
[2022-01-01] MEDS: traMADol HCL 50 MG TABLET PO PRN (22:20)
[2022-01-02] MEDS: SODIUM CHLORIDE 0.9% 1000ML 1,000 ML IV SCH ×3 (03:02→11:41)
[2022-01-02 07:01] LABS: Basophils # (auto) 0.02 K/uL (0-0.2); Basophils % (auto) 0.3 %; Eosinophils # (auto) 0.15 K/uL (0-0.50); Eosinophils % (auto) 2.1 %; Hematocrit (blood only) 26.2 % (34.1-44.9); Hemoglobin 9.4 g/dl (12.0-16.0); Immature Granulocytes # (auto) 0.03 K/uL (0.00-0.02); Immature Granulocytes % (auto) 0.4 %; Lymphocytes # (auto) 1.17 K/uL (1.2-3.4); Lymphocytes % (auto) 16.5 %; Mean Corpuscular Hgb Conc 35.9 g/dL (32.0-36.0); Mean Corpuscular Volume 89.1 fL (80.0-100.0); Mean Platelet Volume 11.5 fL (9.4-12.3); Monocytes # (auto) 0.75 K/uL (0.24-0.82); Monocytes % (auto) 10.6 %; Neutrophils # (auto) 4.95 K/uL (1.4-6.5); Neutrophils % (auto) 70.1 %; Platelet Count 219 K/uL (130-400); RDW Coefficient of Variation 11.9 % (11.5-14.5); RDW Standard Deviation 37.6 fL (36.4-46.3); Red Blood Count 2.94 M/uL (3.93-5.22); White Blood Count 7.07 K/ul (4.8-10.8)
[2022-01-02 07:28] LABS: BUN Creatinine Ratio 11.1 (10-20); Calcium 8.2 mg/dl (8.5-10.1); Creatinine Clr Calc Pharmacy 52.1 ml/min; Est GFR (African American) 96.8 ml/min; Est GFR (Non-African American) 83.5 ml/min; Potassium 2.8 mmol/L (3.5-5.1)
[2022-01-02] MEDS: FEXOFENADINE HCL 180 MG TAB PO SCH (08:05)
[2022-01-02] MEDS: ASCORBIC ACID 500 MG TAB PO SCH (08:05)
[2022-01-02] MEDS: MAGNESIUM OXIDE 400 MG TAB PO SCH (08:05)
[2022-01-02] MEDS: FAMOTIDINE 20 MG TAB PO SCH (08:05)
[2022-01-02] MEDS: SERTRALINE HCL 100 MG TABLET PO SCH (08:05)
[2022-01-02] MEDS: ASPIRIN 81 MG ECTAB PO SCH (08:05)
[2022-01-02] MEDS: cloNIDine HCL 0.1 MG TAB PO SCH (08:05)
[2022-01-02] MEDS: PANTOprazole 40 MG TAB PO SCH (08:05)
[2022-01-02] MEDS: CHOLECALCIFEROL 1,000 UNITS 25 MCG TAB PO SCH (08:05)
[2022-01-02] MEDS: METOPROLOL TARTRATE 25 MG TAB PO SCH ×2 (08:05→20:17)
[2022-01-02] MEDS: FLUTICASONE/VILANTEROL 100/25MCG 14 PUFFS/INHALER INH SCH (08:05)
[2022-01-02] MEDS: CALCITRIOL 0.25 MCG CAPSULE PO SCH (08:05)
[2022-01-02] MEDS ORDERED: POTASSIUM CHLORIDE CRTAB 20 MEQ TABCR PO STA (08:19)
--- NOTE | 2022-01-02 10:53 | Orthopedic Progress Note ---
Date of Service January 02, 2022 Assessment & Plan (1) Closed left hip fracture: Plan: Postop day 1 left trochanteric femoral nailing -PT/OT: Partial weightbearing left lower extremity -DVT prophylaxis: As per medicine. Okay to start anticoagulation -Pain management as written -AM labs: Mild drop in hemoglobin from 10.2-9.4 likely dilutional versus surgical loss. Hypokalemia with potassium at 2.8 this morning. -Discharge planning-patient will likely require inpatient rehab upon discharge. Admission and Anticipated Discharge Date Admission Date: December 29, 2021 Subjective Patient is postop day #1 left trochanteric femoral nailing. She is confused at baseline due to her dementia. She is sitting in the bedside chair and is very lethargic and falling asleep. She does respond to some questions. No complaints. Review of Systems Review of Systems: All systems reviewed & are unremarkable except as noted in Subjective Physical Exam Physical Exam: Left hip: Dressings are clean, dry, intact. Compartments soft and compressible. Calves are soft, no tenderness. Constitutional: well developed and well nourished; no acute distress Results & Data ([facility]) Vital Signs (Past 12 Hours) Vital Signs Temp Pulse Resp BP Pulse Ox O2 Del Method 01/02/22 07:59 Room Air 01/02/22 07:44 36.5 C 73 16 165/72 H 97 Room Air 01/02/22 05:43 77 156/67 H 01/02/22 03:31 36.7 C 71 16 188/66 H 96 Room Air Laboratory Results H & H 12/29/21 12/30/21 01/02/22 Range/Units 04:57 08:13 06:04 Hgb 12.3 10.2 L 9.4 L (12.0-16.0) g/dl Hct 35.1 28.1 L 26.2 L (34.1-44.9) % Coagulation 12/29/21 Range/Units 04:57 INR 1.2 H (0.9-1.1)
[2022-01-02] MEDS ORDERED: Nursing to Pharmacy Communication SCH (11:45)
--- NOTE | 2022-01-02 12:24 | Hospitalist Progress Note ---
Date of Service January 02, 2022 Assessment & Plan (1) Closed left hip fracture: Plan: Following a mechanical fall [place] X ray showed evidence of a nondisplaced intertrochanteric fracture of the left proximal femur She is post op day 1 s/p left trochanteric femoral nailing Partial weight bearing Heparin for DVT Pain control adequate appreciate ortho recs (2) HTN (hypertension): Plan: BP 159/66 today will continue home meds add po clonidine 0.1mg daily (3) Hypokalemia: Plan: Replete re check BMP Plan D/C to rehab when accepted Admission and Anticipated Discharge Date Admission Date: December 29, 2021 Subjective patient seen and examined, sitting up in the chair, confused due to dementia, she is post surgery Review of Systems Review of Systems: unreliable due to dementia Physical Exam Physical Exam: The patient is awake, alert confused, well developed and well nourished, normocephalic and atraumatic, lying in bed and in no acute distress. HEENT--PERRL, EOMI, mucous membranes and oropharynx mildly dry Neck--supple. No JVD. No bruits. Thyroid normal, trachea midline, no adenopathy. Heart--normal S1 and S2. No murmurs, rubs or gallops. Lungs--clear bilaterally, no respiratory distress, no accessory muscle use. Abdomen--normal bowel sounds and soft. Mild epigastric and left sided abdominal pain Extremities--no cyanosis or clubbing. No edema. Dermatologic--normal skin turgor, normal color, no abnormal lymph nodes, no rash. Neurologic--cranial nerves II through XII grossly intact. Rheumatologic--normal range of motion. Psychiatric--normal affect. Results & Data Results & Data ([facility]) Vital Signs (Past 12 Hours) Vital Signs Temp Pulse Resp BP Pulse Ox O2 Del Method 01/02/22 11:17 98.2 F 67 18 159/66 H 98 Room Air 01/02/22 07:59 Room Air 01/02/22 07:44 97.7 F 73 16 165/72 H 97 Room Air 01/02/22 05:43 77 156/67 H 01/02/22 03:31 98.1 F 71 16 188/66 H 96 Room Air PG Care Time/CCT Total # of Minutes Spent Total Time Spent with Patient: Total time spent is greater than 50% in coordination of care (as documented) at patient's floor/unit and/or counseling patient: Coding Level of Care Code 76249 Subseq Hosp Care Lvl 2 Diagnoses Closed left hip fracture S72.002A HTN (hypertension) I10 Hypokalemia E87.6 Time Spent (min) 35
[2022-01-02] MEDS: HEPARIN SOD 5,000 UNIT/0.5 ML VIAL SQ SCH ×2 (13:13→20:17)
[2022-01-02] MEDS: traMADol HCL 50 MG TABLET PO PRN (21:02)
[2022-01-03] MEDS: HEPARIN SOD 5,000 UNIT/0.5 ML VIAL SQ SCH ×3 (06:12→21:13)
[2022-01-03 07:15] LABS: BUN Creatinine Ratio 13.2 (10-20); Calcium 8.6 mg/dl (8.5-10.1); Creatinine Clr Calc Pharmacy 48.2 ml/min; Est GFR (African American) 94.4 ml/min; Est GFR (Non-African American) 81.5 ml/min; Potassium 3.2 mmol/L (3.5-5.1)
[2022-01-03] MEDS ORDERED: POTASSIUM CHLORIDE CRTAB 20 MEQ TABCR PO STA (07:48)
[2022-01-03] MEDS: ASCORBIC ACID 500 MG TAB PO SCH (08:15)
[2022-01-03] MEDS: CALCITRIOL 0.25 MCG CAPSULE PO SCH (08:16)
[2022-01-03] MEDS: CHOLECALCIFEROL 1,000 UNITS 25 MCG TAB PO SCH (08:16)
[2022-01-03] MEDS: SERTRALINE HCL 100 MG TABLET PO SCH (08:16)
[2022-01-03] MEDS: PANTOprazole 40 MG TAB PO SCH (08:16)
[2022-01-03] MEDS: cloNIDine HCL 0.1 MG TAB PO SCH (08:16)
[2022-01-03] MEDS: FEXOFENADINE HCL 180 MG TAB PO SCH (08:16)
[2022-01-03] MEDS: ASPIRIN 81 MG ECTAB PO SCH (08:16)
[2022-01-03] MEDS: FLUTICASONE/VILANTEROL 100/25MCG 14 PUFFS/INHALER INH SCH (08:17)
[2022-01-03] MEDS: MAGNESIUM OXIDE 400 MG TAB PO SCH (08:17)
[2022-01-03] MEDS: FAMOTIDINE 20 MG TAB PO SCH (08:17)
[2022-01-03] MEDS: METOPROLOL TARTRATE 25 MG TAB PO SCH ×2 (08:17→20:12)
--- NOTE | 2022-01-03 10:08 | Orthopedic Progress Note ---
Date of Service January 03, 2022 Assessment & Plan (1) Closed left hip fracture: Plan: Postop day 2 left trochanteric femoral nailing -PT/OT: Partial weightbearing left lower extremity -DVT prophylaxis: As per medicine. Okay to start anticoagulation -Pain management as written -AM labs: potassium at 3.2 this morning. -Discharge planning-patient will likely require inpatient rehab upon discharge. Orthopedics will sign off at this time. Please call with any questions. Instructions placed in the discharge section. Admission and Anticipated Discharge Date Admission Date: December 29, 2021 Subjective Postop day 2 Patient sitting up in bed awake and alert. States she has some pain in her left hip when she tries to move it but otherwise she feels okay this morning. No other new complaints. Physical Exam Physical Exam: Dressings are clean, dry, and intact minimal swelling noted. No erythema. Calves are soft and nontender. Neurovascular appears intact. Toes are mobile. Results & Data ([facility]) Vital Signs (Past 12 Hours) Vital Signs Temp Pulse Resp BP Pulse Ox O2 Del Method 01/03/22 08:00 Room Air 01/03/22 07:33 37.2 C 73 16 149/66 H 93 Room Air Laboratory Results Laboratory Results WBC 7.07 K/ul (4.8-10.8) 01/02/22 06:04 RBC 2.94 M/uL (3.93-5.22) L 01/02/22 06:04 Hgb 9.4 g/dl (12.0-16.0) L 01/02/22 06:04 Hct 26.2 % (34.1-44.9) L 01/02/22 06:04 MCV 89.1 fL (80.0-100.0) 01/02/22 06:04 MCH 32.0 pg (25.0-34.0) 01/02/22 06:04 MCHC 35.9 g/dL (32.0-36.0) 01/02/22 06:04 RDW Std Deviation 37.6 fL (36.4-46.3) 01/02/22 06:04 RDW Coeff of Lc 11.9 % (11.5-14.5) 01/02/22 06:04 Plt Count 219 K/uL (130-400) 01/02/22 06:04 MPV 11.5 fL (9.4-12.3) 01/02/22 06:04 Immature Gran % (Auto) 0.4 % 01/02/22 06:04 Neut % (Auto) 70.1 % 01/02/22 06:04 Lymph % (Auto) 16.5 % 01/02/22 06:04 [place] % (Auto) 10.6 % 01/02/22 06:04 Eos % (Auto) 2.1 % 01/02/22 06:04 Baso % (Auto) 0.3 % 01/02/22 06:04 Neut # (Auto) 4.95 K/uL (1.4-6.5) 01/02/22 06:04 Lymph # (Auto) 1.17 K/uL (1.2-3.4) L 01/02/22 06:04 [place] # (Auto) 0.75 K/uL (0.24-0.82) 01/02/22 06:04 Eos # (Auto) 0.15 K/uL (0-0.50) 01/02/22 06:04 Baso # (Auto) 0.02 K/uL (0-0.2) 01/02/22 06:04 Immature Gran # (Auto) 0.03 K/uL (0.00-0.02) H 01/02/22 06:04 PT 12.3 Seconds (9.0-12.0) H 12/29/21 04:57 INR 1.2 (0.9-1.1) H 12/29/21 04:57 APTT 21.1 Seconds (21.0-31.0) 12/29/21 04:57 PTT Ratio 0.8 12/29/21 04:57 Sodium 137 mmol/L (136-145) 01/03/22 06:06 Potassium 3.2 mmol/L (3.5-5.1) L 01/03/22 06:06 Chloride 106 mmol/L (98-107) 01/03/22 06:06 Carbon Dioxide 24 mmol/L (21-32) 01/03/22 06:06 Anion Gap 7 (3-11) 01/03/22 06:06 BUN 9 mg/dl (6-23) 01/03/22 06:06 Creatinine 0.68 mg/dl (0.6-1.2) 01/03/22 06:06 Est Cr Clr Drug Dosing 48.2 ml/min 01/03/22 06:06 Est GFR ( Amer) 94.4 ml/min 01/03/22 06:06 Est GFR (Non-Af Amer) 81.5 ml/min 01/03/22 06:06 BUN/Creatinine Ratio 13.2 (10-20) 01/03/22 06:06 Glucose 95 mg/dl (70-99(Fasting)) 01/03/22 06:06 Calcium 8.6 mg/dl (8.5-10.1) 01/03/22 06:06 Total Bilirubin 0.6 mg/dl (0.2-1.0) 12/29/21 04:57 AST 15 U/L (13-39) 12/29/21 04:57 ALT 11 U/L (7-52) 12/29/21 04:57 Alkaline Phosphatase 49 U/L (34-104) 12/29/21 04:57 Total Protein 6.5 gm/dl (6.0-8.3) 12/29/21 04:57 Albumin 4.3 gm/dl (3.4-5.0) 12/29/21 04:57 Globulin 2.2 gm/dl (2.5-4.0) L 12/29/21 04:57 Albumin/Globulin Ratio 2.0 (0.9-2) 12/29/21 04:57 Urine Color Yellow 12/29/21 05:43 Urine Appearance Cloudy (Clear) A 12/29/21 05:43 Urine pH 7.5 (4.5-7.5) 12/29/21 05:43 Ur Specific [place] 1.012 (1.000-1.030) 12/29/21 05:43 Urine Protein Negative (Negative) 12/29/21 05:43 Urine Glucose (UA) Negative (Negative) 12/29/21 05:43 Urine Ketones Negative (Negative) 12/29/21 05:43 Urine Blood Negative (Negative) 12/29/21 05:43 Urine Nitrite Negative (Negative) 12/29/21 05:43 Urine Bilirubin Negative (Negative) 12/29/21 05:43 Urine Urobilinogen Negative (Negative) 12/29/21 05:43 Ur Leukocyte Esterase Negative (Negative) 12/29/21 05:43 Urine WBC (Auto) 0 /hpf (0-5) 12/29/21 05:43 Urine RBC (Auto) 0-4 /hpf (0-4) 12/29/21 05:43 U Hyaline Cast (Auto) 0 /lpf (0-5) 12/29/21 05:43 U Epithel Cells (Auto) 5-10 /lpf (0-5) H 12/29/21 05:43 Urine Bacteria (Auto) Negative (Negative) 12/29/21 05:43 SARS-CoV-2, RNA, NAAT NEGATIVE (NEGATIVE) 12/29/21 05:43 Blood Type B Positive 12/31/21 20:53 Antibody Screen NEGATIVE 12/31/21 20:53
--- NOTE | 2022-01-03 16:25 | Hospitalist Progress Note ---
Date of Service January 03, 2022 Assessment & Plan (1) Closed left hip fracture: Plan: Following [place] residence X ray showed evidence of a nondisplaced intertrochanteric fracture of the left proximal femur She is post op day 2 s/p left trochanteric femoral nailing Partial weight bearing Heparin for DVT Pain control adequate appreciate ortho recs (2) HTN (hypertension): Plan: BP 136/68 today will continue home meds add po clonidine 0.1mg daily (3) Hypokalemia: Plan: Replete re check BMP check serum aldosterone Plan D/C to rehab when accepted Admission and Anticipated Discharge Date Admission Date: December 29, 2021 Subjective patient seen and examined, sitting up in the chair, confused from dementia Review of Systems Review of Systems: unreliable due to dementia Physical Exam 2 Physical Exam: The patient is awake, alert confused, well developed and well nourished, normocephalic and atraumatic, lying in bed and in no acute distress. HEENT--PERRL, EOMI, mucous membranes and oropharynx mildly dry Neck--supple. No JVD. No bruits. Thyroid normal, trachea midline, no adenopathy. Heart--normal S1 and S2. No murmurs, rubs or gallops. Lungs--clear bilaterally, no respiratory distress, no accessory muscle use. Abdomen--normal bowel sounds and soft. Mild epigastric and left sided abdominal pain Extremities--no cyanosis or clubbing. No edema. Dermatologic--normal skin turgor, normal color, no abnormal lymph nodes, no rash. Neurologic--cranial nerves II through XII grossly intact. Rheumatologic--normal range of motion. Psychiatric--normal affect. Results & Data Results & Data ([facility]) Vital Signs (Past 12 Hours) Vital Signs Temp Pulse Resp BP BP Pulse Ox O2 Del Method 01/03/22 15:12 98.4 F 75 16 136/68 97 Room Air 01/03/22 08:00 Room Air 01/03/22 07:33 99.0 F 73 16 149/66 H 93 Room Air PG Care Time/CCT Total # of Minutes Spent Total Time Spent with Patient: Total time spent is greater than 50% in coordination of care (as documented) at patient's floor/unit and/or counseling patient: Coding Level of Care Code 92673 Subseq Hosp Care Lvl 2 Diagnoses Closed left hip fracture S72.002A HTN (hypertension) I10 Hypokalemia E87.6 Time Spent (min) 35
[2022-01-03] MEDS: SODIUM CHLORIDE 0.9% 1000ML 1,000 ML IV SCH (16:38)
[2022-01-03] MEDS: bisacodyL 10 MG SUPP PR PRN (17:49)
[2022-01-03] MEDS: ACETAMINOPHEN 325 MG TAB PO PRN (20:14)
[2022-01-04] MEDS: SODIUM CHLORIDE 0.9% 1000ML 1,000 ML IV SCH ×2 (04:36→17:08)
[2022-01-04] MEDS: ACETAMINOPHEN 325 MG TAB PO PRN ×2 (05:56→21:06)
[2022-01-04] MEDS: HEPARIN SOD 5,000 UNIT/0.5 ML VIAL SQ SCH ×3 (05:57→21:06)
[2022-01-04 07:02] LABS: Hematocrit (blood only) 23.5 % (34.1-44.9); Hemoglobin 8.4 g/dl (12.0-16.0); Mean Corpuscular Hemoglobin 32.2 pg (25.0-34.0); Mean Corpuscular Hgb Conc 35.7 g/dL (32.0-36.0); Mean Platelet Volume 11.6 fL (9.4-12.3); Platelet Count 223 K/uL (130-400); RDW Coefficient of Variation 12.3 % (11.5-14.5); RDW Standard Deviation 39.2 fL (36.4-46.3); Red Blood Count 2.61 M/uL (3.93-5.22); White Blood Count 5.39 K/ul (4.8-10.8)
[2022-01-04 08:09] LABS: BUN Creatinine Ratio 14.5 (10-20); Calcium 8.2 mg/dl (8.5-10.1); Creatinine Clr Calc Pharmacy 52.9 ml/min; Est GFR (African American) 97.3 ml/min; Potassium 3.3 mmol/L (3.5-5.1)
[2022-01-04] MEDS ORDERED: POTASSIUM CHLORIDE CRTAB 20 MEQ TABCR PO STA (08:10)
[2022-01-04] MEDS: ASCORBIC ACID 500 MG TAB PO SCH (08:42)
[2022-01-04] MEDS: ASPIRIN 81 MG ECTAB PO SCH (08:43)
[2022-01-04] MEDS: CALCITRIOL 0.25 MCG CAPSULE PO SCH (08:44)
[2022-01-04] MEDS: CHOLECALCIFEROL 1,000 UNITS 25 MCG TAB PO SCH (08:45)
[2022-01-04] MEDS: cloNIDine HCL 0.1 MG TAB PO SCH (08:45)
[2022-01-04] MEDS: FEXOFENADINE HCL 180 MG TAB PO SCH (08:46)
[2022-01-04] MEDS: FAMOTIDINE 20 MG TAB PO SCH (08:46)
[2022-01-04] MEDS: FLUTICASONE/VILANTEROL 100/25MCG 14 PUFFS/INHALER INH SCH (08:46)
[2022-01-04] MEDS: MAGNESIUM OXIDE 400 MG TAB PO SCH (08:47)
[2022-01-04] MEDS: PANTOprazole 40 MG TAB PO SCH (08:48)
[2022-01-04] MEDS: METOPROLOL TARTRATE 25 MG TAB PO SCH ×2 (08:48→21:05)
[2022-01-04] MEDS: SERTRALINE HCL 100 MG TABLET PO SCH (08:49)
--- NOTE | 2022-01-04 09:27 | Orthopedic Progress Note ---
Date of Service January 04, 2022 Assessment & Plan (1) Closed left hip fracture: Plan: Postop follow-up left hip internal fixation with trochanteric femoral nail. Patient had a reported fall onto her buttock but it was not a hard fall and I do not think she has had any adverse effects on her surgical procedure. Admission and Anticipated Discharge Date Admission Date: December 29, 2021 Subjective No complaints Review of Systems Review of Systems: Not obtainable due to dementia Physical Exam Physical Exam: Left leg out to length and with gentle range of motion no substantial pain consistent with intact internal fixation intertrochanteric fracture. Results & Data ([facility]) Vital Signs (Past 12 Hours) Vital Signs Temp Pulse Resp BP Pulse Ox O2 Del Method 01/04/22 08:05 36.6 C 77 16 148/76 H 96 Room Air 01/04/22 07:45 Room Air
--- NOTE | 2022-01-04 13:42 | Hospitalist Progress Note ---
Date of Service January 04, 2022 Assessment & Plan (1) Closed left hip fracture: Plan: Following a mechanical fall at her [place] residence X ray showed evidence of a nondisplaced intertrochanteric fracture of the left proximal femur She is post op day 3 s/p left trochanteric femoral nailing Partial weight bearing Heparin for DVT Pain control adequate appreciate ortho recs (2) HTN (hypertension): Plan: BP 140/57 today will continue home meds add po clonidine 0.1mg daily (3) Hypokalemia: Plan: Replete re check BMP check serum aldosterone (4) Dementia: Plan: Although patient has baseline confusion due to dementia, she is able to answer some questions, and could be lucid occasionally Plan D/C to rehab when accepted Admission and Anticipated Discharge Date Admission Date: December 29, 2021 Subjective patient seen and examined, lying quietly in bed, confused Review of Systems Review of Systems: unreliable due to dementia Physical Exam Physical Exam: The patient is awake, alert confused, well developed and well nourished, normocephalic and atraumatic, lying in bed and in no acute distress. HEENT--PERRL, EOMI, mucous membranes and oropharynx mildly dry Neck--supple. No JVD. No bruits. Thyroid normal, trachea midline, no adenopathy. Heart--normal S1 and S2. No murmurs, rubs or gallops. Lungs--clear bilaterally, no respiratory distress, no accessory muscle use. Abdomen--normal bowel sounds and soft. Mild epigastric and left sided abdominal pain Extremities--no cyanosis or clubbing. No edema. Dermatologic--normal skin turgor, normal color, no abnormal lymph nodes, no rash. Neurologic--cranial nerves II through XII grossly intact. Rheumatologic--normal range of motion. Psychiatric--normal affect. Results & Data Results & Data ([facility]) Vital Signs (Past 12 Hours) Vital Signs Temp Pulse Resp BP Pulse Ox O2 Del Method 01/04/22 11:47 98.1 F 68 18 140/57 L 95 Room Air 01/04/22 08:05 97.9 F 77 16 148/76 H 96 Room Air 01/04/22 07:45 Room Air PG Care Time/CCT Total # of Minutes Spent Total Time Spent with Patient: Total time spent is greater than 50% in coordination of care (as documented) at patient's floor/unit and/or counseling patient: Coding Level of Care Code 40571 Subseq Hosp Care Lvl 2 Diagnoses Closed left hip fracture S72.002A HTN (hypertension) I10 Hypokalemia E87.6 Dementia F03.90 Time Spent (min) 35
--- NOTE | 2022-01-04 17:02 | CT Scan Report ---
CT SCAN OF THE BRAIN WITHOUT IV CONTRAST CLINICAL HISTORY: Facial droop. COMPARISON STUDY: No priors. TECHNIQUE: Unenhanced axial CT scan of the brain is performed from the vertex to the skull base. A do se lowering technique was utilized adhering to the principles of ALARA. CT DOSE: 537.48 mGy.cm FINDINGS: Brain parenchyma: There is age-related involutional change noting moderate subcortical and periventri cular microangiopathic disease. There is no hemorrhage, mass effect, or evidence of acute territorial ischemia by CT criteria. Chronic lacunar infarcts are noted in the right basal ganglia/neely radiat a. Morin-white matter differentiation is preserved. No extra-axial fluid collection is seen. Ventricles, sulci, cisterns: Prominent secondary to involutional change. Intracranial vasculature: There is atherosclerotic calcification of the cavernous carotid and vertebr al arteries. Calvarium: Unremarkable. Sinuses and mastoids: There are air-fluid levels within the sphenoid sinuses. Trace mucosal thickenin g is noted in the posterior ethmoid sinuses The mastoid air cells are well pneumatized. Orbits: The bony orbits are grossly intact. IMPRESSION: There is no hemorrhage, mass effect, or evidence of acute territorial ischemia by CT tamia augustin. ACT 112: Negative or not required by law. Electronically signed by: Ede Jaramillo M.D. 01/04/2022 4:59 PM
[2022-01-05] MEDS: SODIUM CHLORIDE 0.9% 1000ML 1,000 ML IV SCH (05:06)
[2022-01-05] MEDS: HEPARIN SOD 5,000 UNIT/0.5 ML VIAL SQ SCH ×3 (05:09→21:21)
[2022-01-05] MEDS: ACETAMINOPHEN 325 MG TAB PO PRN ×2 (05:10→15:59)
[2022-01-05 07:08] LABS: Hematocrit (blood only) 24.6 % (34.1-44.9); Hemoglobin 8.7 g/dl (12.0-16.0); Mean Corpuscular Hemoglobin 31.9 pg (25.0-34.0); Mean Corpuscular Hgb Conc 35.4 g/dL (32.0-36.0); Mean Corpuscular Volume 90.1 fL (80.0-100.0); Mean Platelet Volume 11.2 fL (9.4-12.3); Platelet Count 189 K/uL (130-400); RDW Coefficient of Variation 12.4 % (11.5-14.5); RDW Standard Deviation 39.1 fL (36.4-46.3); Red Blood Count 2.73 M/uL (3.93-5.22); White Blood Count 6.26 K/ul (4.8-10.8)
[2022-01-05 07:35] LABS: BUN Creatinine Ratio 12.9 (10-20); Calcium 8.5 mg/dl (8.5-10.1); Creatinine Clr Calc Pharmacy 52.9 ml/min; Est GFR (African American) 97.3 ml/min; Potassium 3.3 mmol/L (3.5-5.1)
[2022-01-05] MEDS ORDERED: POTASSIUM CHLORIDE CRTAB 20 MEQ TABCR PO STA (08:03)
[2022-01-05] MEDS: CALCITRIOL 0.25 MCG CAPSULE PO SCH ×2 (09:01→09:14)
[2022-01-05] MEDS: ASPIRIN 81 MG ECTAB PO SCH (09:01)
[2022-01-05] MEDS: ASCORBIC ACID 500 MG TAB PO SCH (09:01)
[2022-01-05] MEDS: FAMOTIDINE 20 MG TAB PO SCH (09:02)
[2022-01-05] MEDS: cloNIDine HCL 0.1 MG TAB PO SCH (09:02)
[2022-01-05] MEDS: CHOLECALCIFEROL 1,000 UNITS 25 MCG TAB PO SCH (09:02)
[2022-01-05] MEDS: FEXOFENADINE HCL 180 MG TAB PO SCH (09:03)
[2022-01-05] MEDS: MAGNESIUM OXIDE 400 MG TAB PO SCH (09:03)
[2022-01-05] MEDS: FLUTICASONE/VILANTEROL 100/25MCG 14 PUFFS/INHALER INH SCH (09:03)
[2022-01-05] MEDS: METOPROLOL TARTRATE 25 MG TAB PO SCH ×2 (09:04→21:21)
[2022-01-05] MEDS: PANTOprazole 40 MG TAB PO SCH (09:05)
[2022-01-05] MEDS: SERTRALINE HCL 100 MG TABLET PO SCH (09:05)
--- NOTE | 2022-01-05 10:16 | XRay Report ---
XR chest 1V portable HISTORY: 81 years-old Female SOB acute shortness of breath COMPARISON: Chest radiograph 12/29/2021 TECHNIQUE: Portable AP view of the chest FINDINGS: Cardiac mediastinal and hilar silhouettes are within normal limits. No pneumothorax. Mild pulmonary v ascular congestion. Small left pleural effusion with mild left greater than right bibasilar consolida tion. Sigmoidal thoracolumbar scoliosis. Cholecystectomy. IMPRESSION: 1. Cardiomegaly with pulmonary vascular congestion. 2. Small left pleural effusion with left greater than right bibasilar opacities. ACT 112: Negative or not required by law. The above report was generated using voice recognition software. It may contain grammatical, syntax o r spelling errors. Electronically signed by: Angelito Florian M.D. 01/05/2022 10:14 AM
[2022-01-05] MEDS ORDERED: FUROSEMIDE INJ 20 MG/2 ML VIAL IV ONE (11:40)
--- NOTE | 2022-01-05 12:42 | Hospitalist Progress Note ---
Date of Service January 05, 2022 Assessment & Plan (1) Closed left hip fracture: Plan: Following a mechanical fall at her [place] residence X ray showed evidence of a nondisplaced intertrochanteric fracture of the left proximal femur She is post op day 4 s/p left trochanteric femoral nailing Partial weight bearing per ortho Heparin for DVT Pain control adequate appreciate ortho recs (2) HTN (hypertension): Plan: BP 140/57 today will continue home meds add po clonidine 0.1mg daily (3) Pulmonary congestion: Plan: Patient complained of mild SOB earlier today Chest X ray showed evidence of mild pulm congestion Will stop IV fluids, although patient not eating and drinking very well Give a dose of IV lasix 20mg (4) Hypokalemia: Plan: Replete re check BMP check serum aldosterone (5) Dementia: Plan: Although patient has baseline confusion due to dementia, she is able to answer some questions, and could be lucid occasionally Plan D/C to rehab when accepted Admission and Anticipated Discharge Date Admission Date: December 29, 2021 Subjective patient seen and examined, lying quietly in bed, confused, said she had some SOB Review of Systems Review of Systems: unreliable due to dementia Physical Exam Physical Exam: The patient is awake, alert confused, well developed and well nourished, normocephalic and atraumatic, lying in bed and in no acute distress. HEENT--PERRL, EOMI, mucous membranes and oropharynx mildly dry Neck--supple. No JVD. No bruits. Thyroid normal, trachea midline, no adenopathy. Heart--normal S1 and S2. No murmurs, rubs or gallops. Lungs--clear bilaterally, no respiratory distress, no accessory muscle use. Abdomen--normal bowel sounds and soft. Mild epigastric and left sided abdominal pain Extremities--no cyanosis or clubbing. No edema. Dermatologic--normal skin turgor, normal color, no abnormal lymph nodes, no rash. Neurologic--cranial nerves II through XII grossly intact. Rheumatologic--normal range of motion. Psychiatric--normal affect. Results & Data Results & Data ([facility]) Vital Signs (Past 12 Hours) Vital Signs Temp Pulse Resp BP Pulse Ox O2 Del Method 01/05/22 07:20 Room Air 01/05/22 08:58 74 18 174/69 H 95 Room Air 01/05/22 07:11 97.7 F 69 16 172/68 H 96 Room Air 01/05/22 05:08 74 18 160/63 H 96 PG Care Time/CCT Total # of Minutes Spent Total Time Spent with Patient: Total time spent is greater than 50% in coordination of care (as documented) at patient's floor/unit and/or counseling patient: Coding Level of Care Code 26892 Subseq Hosp Care Lvl 2 Diagnoses Closed left hip fracture S72.002A HTN (hypertension) I10 Pulmonary congestion R09.89 Hypokalemia E87.6 Dementia F03.90 Time Spent (min) 35
[2022-01-05] MEDS ORDERED: diphenhydrAMINE 50 MG/ML VIAL IV STA (15:53)
--- NOTE | 2022-01-05 16:13 | Communication Note ---
Date of Service: January 05, 2022 Patient's family said not at her baseline and has a facial droop I told them patient always had a droop since she came under my service, even the ER doctor noticed too CT head done yesterday did not show any acute pathology Will obtain an MRI brain
[2022-01-06] MEDS ORDERED: diphenhydrAMINE 50 MG/ML VIAL ONE (00:11)
[2022-01-06] MEDS: traMADol HCL 50 MG TABLET PO PRN (01:00)
[2022-01-06] MEDS: HEPARIN SOD 5,000 UNIT/0.5 ML VIAL SQ SCH ×3 (05:17→20:38)
--- NOTE | 2022-01-06 07:15 | Hospitalist Progress Note ---
Date of Service January 06, 2022 Assessment & Plan (1) Stroke: Plan: 81-year-old female past medical history significant for paroxysmal SVT, dementia, CKD, and hypertension admitted following a fall with left hip fracture, and during admission found to have a subacute to acute CVA. CVA: Per chart records patient presented to the emergency room with moderate confusion, lethargy, slurred speech, left-sided facial droop which per received report was baseline. CT head on admission negative for acute ischemia. Yesterday patient was visited by daughter who expressed concern that at baseline patient can walk, talk, and carry on a conversation without any support or i ssues. MRI brain ordered at that time by hospitalist; results this morning revealed numerous small foci of restricted diffusion throughout the right hemisphere suggesting acute/subacute stroke. Exam today reveals prominent left-sided facial droop, left arm/hand weakness, left-sided neglect. A1c ordered. Echocardiogram did not reveal any shunting. Lipid panel reveals LDL of 64; will defer statin at this time. Suspect that stroke was present on admission but not seen by CT head due to acuity, and given its location is likely because of left-sided weakness, which may have caused her fall and hip fracture. Neurology consulted and appreciate recommendations: Concern for possible hemorrhage given right foot clonus and will get CT head and CTA head/neck stat. Will premedicate with Benadryl given history of shellfish allergy. Patient transferred to [facility] with telemetry for stroke scales, speech evaluation, cardiac monitoring to [facility] for A. fib. (2) Encephalopathy: Plan: Suspect secondary to the above. No evidence of infection. CT head stat to ensure no hemorrhage. (3) Closed left hip fracture: Plan: Presented with left hip pain following a fall [facility]. X-ray showed nondisplaced intertrochanteric fracture of the left proximal femur. Now postop day #5 s/p left trochanteric femoral nailing by Dr. Sotelo. PT and OT as able with partial weightbearing. Heparin ordered for DVT ppx; will resume if CT head without evidence of hemorrhage. Pain control as needed. Ultimate plan for SNF rehab on discharge, pending above CVA work-up. (4) HTN (hypertension): Plan: BP goal recommendations per Neurology of [id number] systolic given recent stroke. Continue po clonidine 0.1mg daily. (5) Pulmonary congestion: Plan: Patient complained of mild SOB on 01/04/2022. Chest X ray showed evidence of mild pulm congestion. Received a dose of Lasix 20 mg IV x1. No evidence of fluid overload on my exam today. (6) Hypokalemia: Plan: Potassium 3.2 today. Will give K Riders 40 meq with repeat in AM. Plan CODE STATUS: DNR/DNI; today noted on chart to have advanced directive with DNR/DNI status. CODE STATUS updated to reflect this FEN: N.p.o. until evaluated by speech therapy DVT prophylaxis: Heparin subQ held until CT head results returned; will resume if no hemorrhage Dispo: Med/Tele Admission and Anticipated Discharge Date Admission Date: December 29, 2021 Subjective Patient without acute events overnight. Today had conversation with daughter on the phone that daughter was concerned about mother's cognitive status and ability to move her left side of her body. Daughter reports that Layne "typically runs circles around me, and her behavior is just not normal". Discussed that MRI did in fact reveal a stroke. Patient herself does not participate in questioning. Review of Systems Review of Systems: Unobtainable due to cognitive status Physical Exam Constitutional: + thin; no acute distress Eyes: PERRL; no conjunctival abnormality and no scleral abnormality Respiratory: normal respiratory effort, lungs clear to auscultation Cardiovascular: RRR, no murmur, no edema No carotid bruits Gastrointestinal (Abdomen): normal bowel sounds, soft, nontender, no hepatosplenomegaly Skin: no rashes, warm and dry Neurologic: Left lower facial droop Left hemiparesis Patient noted to be obtunded on my exam, awakens to loud voice but falls asleep quite quickly after Unable to evaluate speech as patient is not following commands or answering questions Psychiatric: Orientation: + not alert Results & Data Results & Data ([facility]) Vital Signs (Past 12 Hours) Vital Signs Temp Pulse Resp BP Pulse Ox O2 Del Method 01/05/22 22:17 36.8 C 68 17 160/77 H 94 Room Air 01/05/22 21:18 74 143/65 H PG Care Time/CCT Total # of Minutes Spent Total Time Spent with Patient: Total time spent is greater than 50% in coordination of care (as documented) at patient's floor/unit and/or counseling patient: Coding Level of Care Code 61920 Subseq Hosp Care Lvl 3 Diagnoses Stroke I63.9 Encephalopathy G93.40 Closed left hip fracture S72.002A HTN (hypertension) I10 Pulmonary congestion R09.89 Hypokalemia E87.6
--- NOTE | 2022-01-06 08:11 | Magnetic Resonance Report ---
MRI OF THE BRAIN WITHOUT IV CONTRAST CLINICAL HISTORY: Change in mental status. COMPARISON STUDY: CT of the brain dated 01/04/2022. TECHNIQUE: MRI of the brain was performed utilizing various T1 and T2-weighted sequences in the axial , sagittal, and coronal planes. IV contrast was not administered for this examination. The examinatio n is significantly degraded by motion artifact. FINDINGS: Brain parenchyma: There are patchy foci of restricted diffusion in the right centrum semiovale and th e high right frontoparietal cortex. There are also small foci of subcortical restricted diffusion see n in the anterior right temporal lobe and at the right temporo-occipital junction. No restricted diff usion is seen throughout the left hemisphere. There is age-related involutional change noting moderat e confluent subcortical and periventricular microangiopathic disease. A chronic lacunar infarct is no margarita in the right neely radiata. There is no hemorrhage or mass effect. No extra-axial fluid collecti on is seen. The cerebellar tonsils are normal in configuration. Ventricles, sulci, and cisterns: Prominent secondary to involutional change. Pituitary and sella: Unremarkable. Intracranial vasculature: Normal flow voids are maintained at the skull base. Orbits: The bony orbits are grossly intact. Orbital contents are normal in appearance. Sinuses and mastoids: Mucosal thickening is seen within the sphenoid sinus is not a fluid level on th e right. There is trace mucosal thickening ethmoid sinuses. The mastoid air cells are clear. Calvarium: Unremarkable. Cervical cord: Partially visualized cervical spinal cord is normal in morphology and signal intensity . IMPRESSION: 1. There are numerous small foci of restricted diffusion throughout the right hemisphere as above typ ical for acute to subacute ischemia. Given the distribution this could represent an embolic event, or possibly watershed ischemia. Clinical correlation will be required. 2. No foci of restricted diffusion are seen to the left hemisphere. 3. There is no hemorrhage or mass effect. ACT 112: Negative or not required by law. Electronically signed by: Ede Jaramillo M.D. 01/06/2022 8:09 AM
[2022-01-06 08:39] LABS: Calcium 8.8 mg/dl (8.5-10.1); Creatinine Clr Calc Pharmacy 42.6 ml/min; Est GFR (African American) 83.3 ml/min; Est GFR (Non-African American) 71.9 ml/min; Potassium 3.2 mmol/L (3.5-5.1)
[2022-01-06] MEDS: ASPIRIN 81 MG ECTAB PO SCH (09:55)
[2022-01-06] MEDS: PANTOprazole 40 MG TAB PO SCH (09:55)
[2022-01-06] MEDS: MAGNESIUM OXIDE 400 MG TAB PO SCH (09:56)
[2022-01-06] MEDS: SERTRALINE HCL 100 MG TABLET PO SCH (09:56)
[2022-01-06] MEDS: FAMOTIDINE 20 MG TAB PO SCH (09:56)
[2022-01-06] MEDS: FEXOFENADINE HCL 180 MG TAB PO SCH (09:56)
[2022-01-06] MEDS: CHOLECALCIFEROL 1,000 UNITS 25 MCG TAB PO SCH (09:56)
[2022-01-06] MEDS: ASCORBIC ACID 500 MG TAB PO SCH (09:57)
[2022-01-06] MEDS: FLUTICASONE/VILANTEROL 100/25MCG 14 PUFFS/INHALER INH SCH (09:58)
[2022-01-06] MEDS: cloNIDine HCL 0.1 MG TAB PO SCH (09:58)
[2022-01-06] MEDS: METOPROLOL TARTRATE 25 MG TAB PO SCH ×2 (09:58→20:38)
[2022-01-06] MEDS: CALCITRIOL 0.25 MCG CAPSULE PO SCH (09:58)
[2022-01-06] MEDS ORDERED: PHARMACIST DISCHARGE MED REC CONSULT PRN (11:33)
[2022-01-06 11:34] LABS: Chol HDL Ratio 4.7 (0-5)
[2022-01-06 13:12] LABS: Estimated Average Glucose 108 mg/dl; Hemoglobin A1C 5.4 % (4.5-5.6)
--- NOTE | 2022-01-06 13:20 | XCELERA ---
[id number]
--- NOTE | 2022-01-06 14:06 | Neurology Consultation ---
Date of Consultation January 06, 2022 Assessment & Plan (1) Stroke: (2) Encephalopathy: Plan 81-year-old female with an acute appearing multifocal right MCA territory infarct, possibly embolic or watershed, occurring in the context of a fall complicated by left hip fracture, treated with internal fixation with trochanteric nail on January 01. Patient's imaging does reveal a chronic infarct within the right neely radiata that likely explains reported history of chronic left facial droop. However, she now has more extensive acute infarct within the right cerebral hemisphere as above and does appear to have an element of left hemineglect, and more significant left hemiparesis, face and arm, on examination this morning. I also note that she is more hyperreflexive for the right lower limb, with a few beats of clonus at the right patella, as well as reduced consciousness/encephalopathy. I do have some concern for progression in her infarct with perhaps associated cerebral edema yielding false localizing signs. I have ordered an urgent CT of the head. I would also like this patient to have a CT angiogram of the head and neck completed if possible, if not, would recommend a carotid ultrasound. Patient was on daily low-dose aspirin at [facility], this medication has been continued. She may continue with daily low- dose aspirin for the time being. However, if the above CAT scan shows evidence of hemorrhage, would of course need to discontinue her aspirin as well as her subcutaneous heparin. Monitor blood pressure, systolic blood pressure goal 140 to 160 mmHg for the time being. Transfer to telemetry. History of Present Illness Reason for Consultation: stroke Requesting Physician: Mary Jo Roberts DO Attending Physician: Mary Jo Roberts DO History of Present Illness Patient is an 81-year-old female group home resident with a history of dementia, who was brought to the emergency department December 29, 2021 following a fall. It has been reported that she had a chronic left facial droop at that time, she was found on the floor earlier that morning, complaining of left hip pain. She was diagnosed with a closed left hip fracture and underwent internal fixation with a trochanteric femoral nail on January 01. She had been seen by cardiology on December 30, preoperative cardiovascular evaluation, history of aortic insufficiency, paroxysmal supraventricular tachycardia, hypertension, sinus bradycardia noted. In the postoperative timeframe, family had noted that patient had not returned to her baseline status. Her left facial droop was noted as well at that time, with concern that this was actually a new rather than chronic finding. She did have a CT of the head completed January 04, 2022 which revealed age-related involutional change and a moderate degree of subcortical and periventricular microangiopathic disease. No hemorrhage or acute process. I did independently review the images. There is evidence of a chronic appearing ischemic infarct within the left neely radiata/basal ganglia region. A follow-up brain MRI was completed January 06, 2022 which reveals patchy foci of restricted diffusion within the right centrum semiovale in the high right frontoparietal cortex, anterior right temporal lobe, and right temporal occipital junction. No abnormal restricted diffusion within the left cerebral hemisphere. The chronic lacunar infarct was noted in the right neely radiata. Findings most consistent with multifocal ischemic infarct within the right cerebral hemisphere, possibly embolic versus watershed. No hemorrhage or mass-effect. I did independently review these images and agree with the findings as described by the interpreting radiologist. The patient is difficult to arouse this afternoon. She had received diphenhydramine and tramadol overnight. She is unable to provide any details pertaining to her history of present illness. Allergies Allergy/AdvReac Type Severity Reaction Status Date / Time codeine Allergy Unknown Verified 12/29/21 07:11 shellfish derived Allergy Unknown UNKNOWN Verified 12/29/21 07:11 Home Medications Medication Instructions Recorded Confirmed Type ascorbate calcium (vitamin C) 500 500 mg PO DAILY 07/26/19 12/29/21 History mg tablet aspirin 81 mg tablet,delayed 81 mg PO DAILY 07/26/19 12/29/21 History release (Adult Low Dose Aspirin) calcitriol 0.25 mcg capsule 0.25 mcg PO DAILY 07/26/19 12/29/21 History cholecalciferol (vitamin D3) 50 50 mcg PO DAILY 07/26/19 12/29/21 History mcg (2,000 unit) capsule diltiazem HCl 180 mg 180 mg PO DAILY 07/26/19 12/29/21 History capsule,extended release 24 hr (Cardizem CD) magnesium 250 mg tablet 250 mg PO DAILY 07/26/19 12/29/21 History omeprazole 40 mg capsule,delayed 40 mg PO DAILY 07/26/19 12/29/21 History release fluticasone furoate 200 1 puffs inhalation DAILY #1 inhaler 11/07/19 12/29/21 Rx mcg-vilanterol 25 mcg/dose inhalation powder (Breo Ellipta) fexofenadine 180 mg tablet 180 mg PO DAILY #30 tabs 04/03/20 12/29/21 Rx ([facility]) azelastine 137 mcg (0.1 %) nasal 1 spray intranasal BID PRN 12/29/21 12/29/21 History spray aerosol Congestion budesonide 0.5 mg/2 mL suspension 0.5 mg inhalation UD 12/29/21 12/29/21 History for nebulization famotidine 20 mg tablet 20 mg PO DAILY 12/29/21 12/29/21 History formoterol fumarate 20 mcg/2 mL 20 mcg inhalation UD 12/29/21 12/29/21 History solution for nebulization (Perforomist) metoprolol tartrate 25 mg tablet 25 mg PO BID 12/29/21 12/29/21 History sertraline 100 mg tablet 100 mg PO DAILY 12/29/21 12/29/21 History Patient History Medical History Achalasia Anxiety Aortic insufficiency Asthma Chest pain Depression Diverticulosis Dyspnea Essential hypertension Gastroparesis GERD (gastroesophageal reflux disease) Hiatal hernia Kidney disease, chronic, stage III (GFR 30-59 ml/min) Mitral valve disorder Palpitations Paroxysmal supraventricular tachycardia Premature beats Pure hyperglyceridemia Seborrheic keratosis Skin cancer Tachycardia Thyroid nodule Surgical History H/O removal of cyst H/O total hysterectomy History of appendectomy History of cardiac cath History of cholecystectomy History of tonsillectomy and adenoidectomy Family History Brother Hypertension Diabetes Lung cancer Sister Hypertension Social History Smoking Status: Never smoker Hx Alcohol Use: No Hx Substance Use: No Preferred Language: [place] Islander Communication Ability: Effective Car Hopper Required: No Beliefs That Will Affect Care: None marital status: Current Living Situation: Personal Care Facility Current Living Situation Comment: [facility] current occupational status: retired Other Information That Helps Us Care for You: No Feels Safe at Home: Yes Safety Concerns: Feels Safe At This Time caffeine: Yes Seatbelt Use: always Assistive Devices: None Review of Systems Review of Systems: Unobtainable due to reduced consciousness Exam (Neuro) Constitutional: well developed, + thin and + altered mental status Eyes: PERRL and EOM intact bilaterally; no nystagmus Cardiovascular: Vessels: normal carotid upstroke; no carotid bruit Neurologic: Oriented to:: negative Person, Place or Time Memory: negative Short Term Intact or Remote Intact Attention: negative Span Intact or Concentration Intact Speech Fluency: Other (Unable to evaluate speech) Fund of Knowledge: Other (Unable to evaluate due to reduced alertness/obtundation); negative Current Events or Past History Cranial Nerves: Normal III, IV, ; Abnorm VII (Left lower facial droop noted) Motor Strength: Hemiparesis Laterality: Left Muscle Bulk/Involuntary Movements: No Involuntary Movements Deep Tendon Reflexes: Rt Triceps: 2+, Lt Triceps: 2+, Rt Biceps: 2+, Lt Biceps: 2+, Rt Brachioradialis: 2+, Lt Brachioradialis: 2+, Rt Patellar: 3+, Lt Patellar: 2+, Rt Ankle: 2+ and Lt Ankle: 2+ Special Tests: Babinski Present (R>L) Details: Limited neurologic examination due to reduced alertness/obtundation, some agitation as well. Patient does not cooperate adequately for direct ophthalmoscopic examination. Blink reflex intact. No gaze preference. Possible element of left hemineglect. Minimal spontaneous movement for the left upper limb noted. Deep tendon reflexes are a bit more brisk for the right leg, with a few beats of clonus. Gait cannot be tested. Results & Data ([facility]) Vital Signs (Past 12 Hours) Vital Signs Temp Pulse Resp BP Pulse Ox O2 Del Method 01/06/22 07:36 37.4 C 72 16 156/83 H 95 Room Air Laboratory Results WBC 6.26, hemoglobin 8.7, hematocrit 24.6, MCV 90.1, platelet count 189, sodium 137, potassium 3.2, BUN 10, creatinine 0.77, glucose 98, hemoglobin A1c 5.4, calcium 8.8, triglycerides 167, cholesterol 123, LDL 64, VLDL 33, HDL [address] of the head and brain MRI are as described above in the history of present illness. I did independently review these images as well as the radiologist interpretation of these tests. Echocardiogram completed January 06, 2022, no cardiac source of emboli, technically limited study, left ventricular systolic function normal, right ventricular systolic pressure normal, injection of contrast documented no interatrial shunt, left atrial size normal. Electrocardiogram completed December 29, 2021 revealed sinus bradycardia, 56 bpm. Coding Level of Care Code 31306 Initial In Care Lvl 3 Diagnoses Stroke I63.9 Encephalopathy G93.40
[2022-01-06] MEDS ORDERED: HYDROmorphone INJ 0.5 MG/0.5 ML SYR IV PRN (15:22)
[2022-01-06] MEDS ORDERED: diphenhydrAMINE 50 MG/ML VIAL IV SCH (16:30)
[2022-01-06] MEDS ORDERED: OPTIRAY 300 500mL IV ONE (16:45)
--- NOTE | 2022-01-06 17:03 | CT Scan Report ---
CT angio neck with con, CT angio head w con, CT head/brain wo con CLINICAL HISTORY: 81 years-old Female with CVA. Acute strokelike symptoms COMPARISON STUDY: Head CT 01/04/2022, brain MRI 01/06/2022 TECHNIQUE: Following the IV administration of 120 mL of Optiray, CT angiogram of the head and neck was performed from the aortic arch to the [facility] base. Images are reviewed in the axial, sagittal, and coronal planes. 3-D MIPS images are created and assessed. IV contrast was administered without complication. Noncontrast head CT was also obtaine d. All measurements were calculated based on NASCET criteria. A dose lowering technique was utilized adhering to the principles of ALARA. CT DOSE: 837.23 mGy.cm COMPARISON: Brain MRI of same day, head CT 01/04/2022 FINDINGS: CT HEAD: Age-related involutional changes with chronic microvascular ischemic disease. Scattered acute subacut e appearing infarcts in the right cerebral hemisphere redemonstrated, however are better seen and audra racterized on the brain MRI of same day. The largest infarct measures approximately 1.3 cm within the right frontal lobe centrum semiovale and within the posterior right temporal lobe measuring approxim ately 2.5 cm. No acute intracranial hemorrhage, midline shift, abnormal extra axial collection, hydro cephalus or intracranial mass. No acute calvarial fracture. The mastoid air cells and middle ear cavi ties are clear. Mild mucosal thickening of the paranasal sinuses. Scattered foci of air within the ca vernous sinus, may be secondary to IV catheter. Right sphenoid sinus air-fluid level. Unremarkable so ft tissues. CTA HEAD AND NECK: Three-vessel morphology of the thoracic arch. There is patency of the innominate and imaged subclavia n arteries. The common and internal carotid arteries are patent. The study is motion degraded. Athero sclerosis of the cavernous and clinoid segments without high-grade stenosis. 60% luminal narrowing is present within the distal M1 segment of the left middle cerebral artery and image 145. The anterior cerebral arteries are patent. There is an 8 mm segment of the proximal to mid M1 segment of the right middle cerebral artery which is occluded. There is reconstitution of flow within the distal M1 segme nt. Additionally, there is occlusion involving a distal M3 and 3 branch, image 161. The right vertebr al artery is dominant. The vertebral arteries are patent bilaterally. The basilar and posterior cereb ral arteries are patent bilaterally. Cerebral venous sinuses are patent. No aneurysm or dissection. T here is no abnormal intracranial enhancement identified. Lung apices are clear without pneumothorax. Degenerative changes of the cervical spine. IMPRESSION: 1. No acute intracranial hemorrhage or midline shift. 2. Scattered acute to subacute appearing infarcts of the right cerebral hemisphere are better visuali zed and characterized on the brain MRI of same day. 3. 8 mm segment occlusion of the right M1 segment of the middle cerebral artery with distal reconstit ution. Additionally, there is occlusion involving a distal M3 branch. 4. 60% stenosis involves the M1 branch of the left middle cerebral artery. ACT 112: Negative or not required by law. The above report was generated using voice recognition software. It may contain grammatical, syntax o r spelling errors. Electronically signed by: Angelito Florian M.D. 01/06/2022 5:01 PM
[2022-01-06] MEDS: POTASSIUM CHLORIDE / WTR 10 MEQ/100 ML PLCT IV SCH ×4 (17:16→22:37)
[2022-01-06] MEDS ORDERED: diphenhydrAMINE 50 MG/ML VIAL IV ONE (18:19)
[2022-01-07] MEDS: HEPARIN SOD 5,000 UNIT/0.5 ML VIAL SQ SCH ×3 (06:21→20:00)
[2022-01-07 08:03] LABS: Hematocrit (blood only) 25.4 % (34.1-44.9); Hemoglobin 8.9 g/dl (12.0-16.0); Mean Corpuscular Hemoglobin 31.6 pg (25.0-34.0); Mean Corpuscular Volume 90.1 fL (80.0-100.0); Mean Platelet Volume 10.8 fL (9.4-12.3); Platelet Count 108 K/uL (130-400); RDW Coefficient of Variation 12.7 % (11.5-14.5); RDW Standard Deviation 40.8 fL (36.4-46.3); Red Blood Count 2.82 M/uL (3.93-5.22); White Blood Count 6.21 K/ul (4.8-10.8)
--- NOTE | 2022-01-07 08:12 | Hospitalist Progress Note ---
Date of Service January 07, 2022 Assessment & Plan (1) Stroke: Plan: 81-year-old female past medical history significant for paroxysmal SVT, dementia, CKD, and hypertension admitted following a fall with left hip fracture, and during admission found to have a subacute to acute CVA. CVA: Per chart records patient presented to the emergency room with moderate confusion, lethargy, slurred speech, left-sided facial droop which per received report was baseline. CT head on admission negative for acute ischemia. MRI brain performed 01/06 revealed numerous small foci of restricted diffusion throughout the right hemisphere suggesting acute/subacute stroke. Exam today reveals prominent left-sided facial droop, left arm/hand weakness (though improved compared to yesterday), and left-sided neglect. A1c 5.4%. Echocardiogram did not reveal any shunting. Lipid panel reveals LDL of 64; will defer statin at this time given LDL less than 70. Suspect that stroke was present on admission but not seen by CT head due to acuity, and given its location is likely the cause of her left-sided weakness, which may have caused her fall and hip fracture. Neurology consulted and appreciate recommendations: Initially was some concern for hemorrhage, however fortunately CT head does not show evidence of hemorrhage. No evidence of significant carotid occlusion on CTA neck. Will discontinue aspirin in favor of Plavix moving forward. Discontinue clonidine in favor of amlodipine per cardiology recommendations for blood pressure and heart rate control. PT and OT recommend acute rehab; [facility] and other facilities have had referral sent, and will await placement. (2) Encephalopathy: Plan: Suspect secondary to the above. Improved today compared to yesterday. No evidence of infection. CT head negative for hemorrhage. (3) Closed left hip fracture: Plan: Presented with left hip pain following a fall [place]. X-ray showed nondisplaced intertrochanteric fracture of the left proximal femur. Now postop day #5 s/p left trochanteric femoral nailing by Dr. Sotelo. PT and OT as able with partial weightbearing. Heparin ordered for DVT ppx; will resume if CT head without evidence of hemorrhage. Pain control as needed. Acute rehab on discharge as described above. (4) HTN (hypertension): Plan: BP goal recommendations per Neurology of [id number] systolic given recent stroke. Discontinue clonidine in favor of amlodipine per cardiology recommendations. (5) Pulmonary congestion: Plan: Patient complained of mild SOB on 01/04/2022. Chest X ray showed evidence of mild pulm congestion. Received a dose of Lasix 20 mg IV x1. No evidence of fluid overload on my exam today. (6) Hypokalemia: Plan: Potassium 3.6 today after receiving 40 mEq of [place] yesterday. Plan CODE STATUS: DNR/DNI; has an advanced directive on chart FEN: Pured diet per speech therapy DVT prophylaxis: Heparin 5000 units SQ every 8 hours Dispo: Med/Tele Admission and Anticipated Discharge Date Admission Date: December 29, 2021 Subjective Patient without acute events overnight. Today patient is able to participate much more in conversation and follow commands much more effectively, though is still confused and tired. Today when I asked her how she is feeling, she expressed that she is feeling embarrassed by her stool accident that she had had about 15 minutes prior to my arrival to the room. Review of Systems Constitutional: no fever and no chills Respiratory: no cough and no dyspnea Cardiovascular: no chest pain and no palpitations Gastrointestinal: no abdominal pain, no nausea and no vomiting Physical Exam Constitutional: + thin; no acute distress Patient is much more alert today, able to answer questions though still very sleepy Respiratory: normal respiratory effort, lungs clear to auscultation Cardiovascular: RRR, no murmur, no edema Gastrointestinal (Abdomen): normal bowel sounds, soft, nontender, no hepatosplenomegaly Skin: no rashes, warm and dry Neurologic: Slurred speech, left facial droop Pupils equally round and reactive to light. Left-sided neglect still present. Strength 5 out of 5 in right upper extremity and right lower extremity. Strength 3 out of 5 in the left upper extremity. Patient is able to wiggle toes on left foot and activate muscle groups but cannot lift leg off of the bed. Results & Data Results & Data ([facility]) Vital Signs (Past 12 Hours) Vital Signs Temp Pulse Pulse Resp BP BP Pulse Ox 01/07/22 07:56 36.7 C 69 18 163/57 H 94 01/07/22 07:12 71 01/07/22 03:00 37.0 C 73 18 154/79 H 95 01/06/22 22:19 67 01/06/22 23:42 36.8 C 68 20 144/75 H 95 O2 Del Method 01/07/22 07:56 Room Air 01/07/22 07:12 01/07/22 03:00 Room Air 01/06/22 22:19 01/06/22 23:42 Room Air PG Care Time/CCT Total # of Minutes Spent Total Time Spent with Patient: Total time spent is greater than 50% in coordination of care (as documented) at patient's floor/unit and/or counseling patient: Coding Level of Care Code 21670 Subseq Hosp Care Lvl 3 Diagnoses Stroke I63.9 Encephalopathy G93.40 Closed left hip fracture S72.002A HTN (hypertension) I10 Pulmonary congestion R09.89 Hypokalemia E87.6
[2022-01-07 08:44] LABS: Basophils # (auto) 0.02 K/uL (0-0.2); Basophils % (auto) 0.3 %; Eosinophils # (auto) 0.28 K/uL (0-0.50); Eosinophils % (auto) 4.5 %; Immature Granulocytes # (auto) 0.06 K/uL (0.00-0.02); Lymphocytes # (auto) 0.99 K/uL (1.2-3.4); Lymphocytes % (auto) 15.9 %; Monocytes % (auto) 9.7 %; Neutrophils # (auto) 4.26 K/uL (1.4-6.5); Neutrophils % (auto) 68.6 %; Polychromasia 1+
[2022-01-07 08:47] LABS: Potassium 3.6 mmol/L (3.5-5.1)
[2022-01-07 08:48] LABS: Calcium 8.8 mg/dl (8.5-10.1); Creatinine Clr Calc Pharmacy 31.8 ml/min; Est GFR (African American) 65.5 ml/min; Est GFR (Non-African American) 56.5 ml/min; Magnesium 1.4 mg/dl (1.7-2.4)
[2022-01-07] MEDS: MAGNESIUM OXIDE 400 MG TAB PO SCH (08:56)
[2022-01-07] MEDS: FEXOFENADINE HCL 180 MG TAB PO SCH (08:56)
[2022-01-07] MEDS: PANTOprazole 40 MG TAB PO SCH (08:56)
[2022-01-07] MEDS: CHOLECALCIFEROL 1,000 UNITS 25 MCG TAB PO SCH (08:56)
[2022-01-07] MEDS: FAMOTIDINE 20 MG TAB PO SCH (08:56)
[2022-01-07] MEDS: CALCITRIOL 0.25 MCG CAPSULE PO SCH (08:57)
[2022-01-07] MEDS: ASCORBIC ACID 500 MG TAB PO SCH (08:57)
[2022-01-07] MEDS: ASPIRIN 81 MG ECTAB PO SCH (08:57)
[2022-01-07] MEDS: cloNIDine HCL 0.1 MG TAB PO SCH (08:57)
[2022-01-07] MEDS: METOPROLOL TARTRATE 25 MG TAB PO SCH ×2 (08:57→20:00)
[2022-01-07] MEDS: SERTRALINE HCL 100 MG TABLET PO SCH (08:57)
[2022-01-07] MEDS: FLUTICASONE/VILANTEROL 100/25MCG 14 PUFFS/INHALER INH SCH (08:57)
[2022-01-07] MEDS ORDERED: ATORVASTATIN 40 MG TAB PO SCH (09:00)
[2022-01-07] MEDS ORDERED: CLOPIDOGREL BISULFATE 75 MG TAB PO SCH (09:00)
[2022-01-07] MEDS: ACETAMINOPHEN 325 MG TAB PO PRN (19:57)
[2022-01-08] MEDS: traMADol HCL 50 MG TABLET PO PRN (01:40)
[2022-01-08] MEDS: HEPARIN SOD 5,000 UNIT/0.5 ML VIAL SQ SCH ×3 (06:17→22:28)
--- NOTE | 2022-01-08 07:13 | Hospitalist Progress Note ---
Date of Service January 08, 2022 Assessment & Plan (1) Stroke: Plan: 81-year-old female past medical history significant for paroxysmal SVT, dementia, CKD, and hypertension admitted following a fall with left hip fracture, and during admission found to have a subacute to acute CVA. CVA: Per chart records patient presented to the emergency room with moderate confusion, lethargy, slurred speech, left-sided facial droop which per received report was baseline. CT head on admission negative for acute ischemia. MRI brain performed 01/06 revealed numerous small foci of restricted diffusion throughout the right hemisphere suggesting acute/subacute stroke. Exam today reveals left-sided facial droop, left arm/hand weakness and left- sided neglect, though the symptoms are improving as compared to Thursday. A1c 5.4%. Echocardiogram did not reveal any shunting. Lipid panel reveals LDL of 64; will defer statin at this time given LDL less than 70. Suspect that stroke was present on admission but not seen by CT head, and given its location in right hemisphere is likely the cause of her left-sided weakness, which may have caused her fall and hip fracture. Neurology consulted and appreciate recommendations: Initially was some concern for hemorrhage, however fortunately CT head does not show evidence of hemorrhage. No evidence of significant carotid occlusion on CTA neck. Continue Plavix. Aspirin has been discontinued and the of this. Continue amlodipine for blood pressure control. Video swallow study was done today by speech therapy, showing moderate oral stage dysphagia without aspiration. Recommendations today made for IDDSI 4 pured diet, no straws, assistance and cueing with meals. PT and OT recommend acute rehab; [facility] and other facilities have had referral sent, and will await placement. (2) Encephalopathy: Plan: Suspect secondary to the above. Patient is alert and oriented to person and place, with periods of confusion in the evenings. No evidence of infection. CT head negative for hemorrhage. (3) Closed left hip fracture: Plan: Presented with left hip pain following a fall at her senior care residence. X-ray showed nondisplaced intertrochanteric fracture of the left proximal femur. Had left trochanteric femoral nailing by Dr. Sotelo on 01/01. PT and OT as able with partial left foot weightbearing. Heparin ordered for DVT ppx. Pain control as needed. Acute rehab on discharge as described above. (4) Inadequate oral intake: Plan: Since patient's stroke, she has had reduced oral intake. Patient's daughter expressed concern today about her not eating much at baseline prior to the stroke, with concern that she will lose weight due to decreased intake. Cueing and assistance with all meals. Boost ordered. (5) HTN (hypertension): Plan: BP goal recommendations per Neurology of [id number] systolic given recent stroke. Continue amlodipine. (6) Pulmonary congestion: Plan: Patient complained of mild SOB on 01/04/2022. Chest X ray showed evidence of mild pulm congestion. Received a dose of Lasix 20 mg IV x1. No evidence of fluid overload on my exam today. (7) Hypokalemia: Plan: Potassium 3.5 today. Plan CODE STATUS: DNR/DNI; has an advanced directive on chart FEN: Pured diet per speech therapy DVT prophylaxis: Heparin 5000 units SQ every 8 hours Dispo: Med/Tele Admission and Anticipated Discharge Date Admission Date: December 29, 2021 Subjective Patient without any acute events overnight. This morning patient is awake and alert on my interview, and able to answer questions and follow commands. Still with slurred speech. Reports feeling a little hungry right now. Review of Systems Constitutional: no fever and no chills Respiratory: no cough and no dyspnea Cardiovascular: no chest pain and no palpitations Gastrointestinal: no abdominal pain, no nausea and no vomiting Physical Exam Constitutional: + thin; no acute distress Patient is much more alert today, able to answer questions though still very sleepy Eyes: PERRL; no conjunctival abnormality and no scleral abnormality Respiratory: normal respiratory effort, lungs clear to auscultation Cardiovascular: RRR, no murmur, no edema Gastrointestinal (Abdomen): normal bowel sounds, soft, nontender, no hepatosplenomegaly Skin: no rashes, warm and dry Neurologic: Slurred speech, left facial droop Pupils equally round and reactive to light. Left-sided neglect improved; patient will look over at me when I sit on her right side today Strength 5 out of 5 in right upper extremity and right lower extremity. Strength 3 out of 5 in the left upper extremity. Patient is able to wiggle toes on left foot and activate muscle groups but cannot lift leg off of the bed. Results & Data Results & Data ([facility]) Vital Signs (Past 12 Hours) Vital Signs Temp Pulse Pulse Pulse Resp BP Pulse Ox 01/08/22 02:51 36.6 C 70 20 166/79 H 93 01/07/22 22:12 68 01/07/22 23:15 37.0 C 67 20 154/73 H 93 01/07/22 19:20 01/07/22 19:29 36.6 C 76 20 160/71 H 94 01/07/22 20:00 67 162/74 H O2 Del Method 01/08/22 02:51 Room Air 01/07/22 22:12 01/07/22 23:15 Room Air 01/07/22 19:20 Room Air 01/07/22 19:29 Room Air 01/07/22 20:00 PG Care Time/CCT Total # of Minutes Spent Total Time Spent with Patient: Total time spent is greater than 50% in coordination of care (as documented) at patient's floor/unit and/or counseling patient: Coding Level of Care Code 88464 Subseq Hosp Care Lvl 3 Diagnoses Stroke I63.9 Encephalopathy G93.40 Closed left hip fracture S72.002A Inadequate oral intake R63.8 HTN (hypertension) I10 Pulmonary congestion R09.89 Hypokalemia E87.6
[2022-01-08 07:18] LABS: Hematocrit (blood only) 24.9 % (34.1-44.9); Hemoglobin 8.7 g/dl (12.0-16.0); Mean Corpuscular Hemoglobin 31.8 pg (25.0-34.0); Mean Corpuscular Hgb Conc 34.9 g/dL (32.0-36.0); Mean Corpuscular Volume 90.9 fL (80.0-100.0); Mean Platelet Volume 11.4 fL (9.4-12.3); Platelet Count 106 K/uL (130-400); RDW Coefficient of Variation 12.8 % (11.5-14.5); RDW Standard Deviation 40.6 fL (36.4-46.3); Red Blood Count 2.74 M/uL (3.93-5.22); White Blood Count 6.67 K/ul (4.8-10.8)
[2022-01-08 07:30] LABS: BUN Creatinine Ratio 21.5 (10-20); Calcium 9.1 mg/dl (8.5-10.1); Creatinine Clr Calc Pharmacy 31.6 ml/min; Est GFR (African American) 66.3 ml/min; Est GFR (Non-African American) 57.2 ml/min; Magnesium 1.5 mg/dl (1.7-2.4); Potassium 3.5 mmol/L (3.5-5.1)
[2022-01-08 07:50] LABS: Basophils # (auto) 0.04 K/uL (0-0.2); Basophils % (auto) 0.6 %; Eosinophils % (auto) 4.5 %; Immature Granulocytes % (auto) 1.5 %; Lymphocytes # (auto) 1.23 K/uL (1.2-3.4); Lymphocytes % (auto) 18.4 %; Monocytes # (auto) 0.69 K/uL (0.24-0.82); Monocytes % (auto) 10.3 %; Neutrophils # (auto) 4.31 K/uL (1.4-6.5); Neutrophils % (auto) 64.7 %
[2022-01-08] MEDS: FAMOTIDINE 20 MG TAB PO SCH (09:50)
[2022-01-08] MEDS: CHOLECALCIFEROL 1,000 UNITS 25 MCG TAB PO SCH (09:50)
[2022-01-08] MEDS: CALCITRIOL 0.25 MCG CAPSULE PO SCH (09:51)
[2022-01-08] MEDS: amLODIPine BESYLATE 5 MG TAB PO SCH (09:51)
[2022-01-08] MEDS: PANTOprazole 40 MG TAB PO SCH (09:51)
[2022-01-08] MEDS: SERTRALINE HCL 100 MG TABLET PO SCH (09:51)
[2022-01-08] MEDS: FLUTICASONE/VILANTEROL 100/25MCG 14 PUFFS/INHALER INH SCH (09:51)
[2022-01-08] MEDS: MAGNESIUM OXIDE 400 MG TAB PO SCH (09:51)
[2022-01-08] MEDS: FEXOFENADINE HCL 180 MG TAB PO SCH (09:51)
[2022-01-08] MEDS: METOPROLOL TARTRATE 25 MG TAB PO SCH ×2 (09:52→22:28)
[2022-01-08] MEDS: ASCORBIC ACID 500 MG TAB PO SCH (09:52)
[2022-01-08] MEDS: CLOPIDOGREL BISULFATE 75 MG TAB PO SCH (09:52)
--- NOTE | 2022-01-08 12:00 | Fluoroscopy Report ---
MODIFIED BARIUM SWALLOW CLINICAL HISTORY: Assess for aspiration COMPARISON STUDY: None. FLUOROSCOPY TIME: 3.1 minutes. TECHNIQUE: A modified barium swallow was performed in conjunction with Speech Pathology. The patient ingested varying consistencies of barium containing material. Video fluoroscopy was performed. FINDINGS: This exam was slightly compromised given difficulty positioning. Penetration was noted with swallows of thin liquids. No aspiration was noted. There was no aspiration with mildly thick liquids , pudding or crackers with paste. Liquid wash was necessary with crackers with paste consistency. Epi glottic inversion was normal. Laryngeal elevation was normal. IMPRESSION: 1. No tracheal aspiration identified. Penetration with swallows of thin liquids. 2. Residuals with crackers with paste. 3. Full recommendations by Speech pathology to follow. ACT 112: Negative or not required by law. Electronically signed by: Terry Ambrosio M.D. 01/08/2022 11:59 AM
[2022-01-08] MEDS: MAGNESIUM SULFATE / D5W 1 GM/100 ML BAG IV SCH (22:45)
[2022-01-09] MEDS: MAGNESIUM SULFATE / D5W 1 GM/100 ML BAG IV SCH ×3 (00:45→04:58)
[2022-01-09] MEDS ORDERED: hydrALAZINE HCL 20 MG/ML VIAL IV ONE (03:52)
[2022-01-09] MEDS: HEPARIN SOD 5,000 UNIT/0.5 ML VIAL SQ SCH ×3 (05:36→22:41)
[2022-01-09 07:31] LABS: Hematocrit (blood only) 26.7 % (34.1-44.9); Hemoglobin 9.5 g/dl (12.0-16.0); Mean Corpuscular Hgb Conc 35.6 g/dL (32.0-36.0); Mean Corpuscular Volume 89.9 fL (80.0-100.0); Mean Platelet Volume 11.1 fL (9.4-12.3); Platelet Count 113 K/uL (130-400); Red Blood Count 2.97 M/uL (3.93-5.22); White Blood Count 7.51 K/ul (4.8-10.8)
[2022-01-09 07:32] LABS: Basophils # (auto) 0.03 K/uL (0-0.2); Basophils % (auto) 0.4 %; Eosinophils # (auto) 0.26 K/uL (0-0.50); Eosinophils % (auto) 3.5 %; Immature Granulocytes # (auto) 0.14 K/uL (0.00-0.02); Immature Granulocytes % (auto) 1.9 %; Lymphocytes # (auto) 1.23 K/uL (1.2-3.4); Lymphocytes % (auto) 16.4 %; Monocytes # (auto) 0.73 K/uL (0.24-0.82); Monocytes % (auto) 9.7 %; Neutrophils # (auto) 5.12 K/uL (1.4-6.5); Neutrophils % (auto) 68.1 %
[2022-01-09 07:46] LABS: BUN Creatinine Ratio 18.8 (10-20); Creatinine Clr Calc Pharmacy 36.3 ml/min; Est GFR (African American) 79.6 ml/min; Est GFR (Non-African American) 68.7 ml/min; Magnesium 2.9 mg/dl (1.7-2.4); Potassium 3.1 mmol/L (3.5-5.1)
--- NOTE | 2022-01-09 08:00 | Hospitalist Progress Note ---
Date of Service January 09, 2022 Assessment & Plan (1) Stroke: Plan: 81-year-old female past medical history significant for paroxysmal SVT, dementia, CKD, and hypertension admitted following a fall with left hip fracture, and during admission found to have a subacute to acute CVA. CVA: Patient presented to the emergency room with moderate confusion, lethargy, slurred speech, left-sided facial droop which per received report was baseline. CT head on admission negative for acute ischemia. MRI brain performed 01/06 revealed numerous small foci of restricted diffusion throughout the right hemisphere suggesting acute/subacute stroke. Left-sided facial droop, left arm/hand weakness and left-sided neglect are improved significantly compared to my exam of the patient on 01/06. A1c 5.4%. Echocardiogram did not reveal any shunting. Lipid panel reveals LDL of 64; will defer statin at this time given LDL less than 70. Neurology consulted and appreciate recommendations: Initially was some concern for hemorrhage, however fortunately CT head does not show evidence of hemorrhage. No evidence of significant carotid occlusion on CTA neck. Continue Plavix in the lieu of aspirin. Continue amlodipine for blood pressure control. Video swallow study was done today by speech therapy, showing moderate oral stage dysphagia without aspiration. Recommendations made for IDDSI 4 pured diet, no straws, assistance and cueing with meals. PT and OT recommend acute rehab; [facility] referral pending. (2) Encephalopathy: Plan: Suspect secondary to the above. Patient is alert and oriented to person and [place] ce, with periods of confusion specifically in the evenings. No evidence of infection. CT head negative for hemorrhage. (3) Closed left hip fracture: Plan: Presented with left hip pain following a fall [facility]. X-ray showed nondisplaced intertrochanteric fracture of the left proximal femur. Status post left trochanteric femoral nailing by Dr. Sotelo on 01/01. PT and OT as able with partial left foot weightbearing. Heparin ordered for DVT ppx. Pain control as needed. Acute rehab on discharge as described above. (4) Inadequate oral intake: Plan: Since patient's stroke, she has had reduced oral intake. Cueing and assistance with all meals. Boost and dietary consult ordered. (5) HTN (hypertension): Plan: BP goal systolic less than 180 as patient is out of the acute CVA window and does not have a hemorrhagic stroke. Continue amlodipine. (6) Paroxysmal supraventricular tachycardia: Plan: Continue telemetry. Metoprolol p.o. cannot be crushed; will give Lopressor 5 mg IV every 6 hours scheduled. (7) Pulmonary congestion: Plan: Patient complained of mild SOB on 01/04/2022. Chest X ray showed evidence of mild pulm congestion. Resolved since that time. (8) Hypokalemia: Plan: Potassium 3.1 today. Plan CODE STATUS: DNR/DNI; has an advanced directive on chart FEN: Pured diet per speech therapy DVT prophylaxis: Heparin 5000 units SQ every 8 hours Dispo: Med/Tele Admission and Anticipated Discharge Date Admission Date: December 29, 2021 Subjective Patient without any acute events overnight. Does sometimes disconnect from conversation and look to one direction or the other but is easily redirectable. Able to answer questions such as what she had for breakfast this morning. She does not endorse any pain at this time. Review of Systems Constitutional: no fever and no chills Respiratory: no cough and no dyspnea Cardiovascular: no chest pain and no palpitations Gastrointestinal: no abdominal pain, no nausea and no vomiting Physical Exam Constitutional: + thin; no acute distress Patient is alert, able to answer questions with redirection at times Respiratory: normal respiratory effort, lungs clear to auscultation Cardiovascular: RRR, no murmur, no edema Gastrointestinal (Abdomen): normal bowel sounds, soft, nontender, no hepatosplenomegaly Skin: no rashes, warm and dry Neurologic: Slurred speech, left facial droop Pupils equally round and reactive to light. Left-sided neglect improved Strength 5 out of 5 in right upper extremity and right lower extremity. Strength 3 out of 5 in the left upper extremity. Strength 5 out of 5 in right lower extremity. Strength 2 out of 5 in left lower extremity. Psychiatric: Orientation: alert, oriented to person and oriented to place Results & Data Results & Data ([facility]) Vital Signs (Past 12 Hours) Vital Signs Temp Pulse Pulse Pulse Resp BP Pulse Ox 01/08/22 22:15 75 01/09/22 05:35 64 168/77 H 01/09/22 02:58 36.6 C 62 18 184/69 H 94 01/09/22 03:27 65 184/69 H 01/09/22 03:55 72 190/79 H 01/08/22 23:04 36.3 C L 71 20 177/70 H 95 01/08/22 22:27 69 187/72 H O2 Del Method 01/08/22 22:15 01/09/22 05:35 01/09/22 02:58 Room Air 01/09/22 03:27 01/09/22 03:55 01/08/22 23:04 Room Air 01/08/22 22:27 PG Care Time/CCT Total # of Minutes Spent Total Time Spent with Patient: Total time spent is greater than 50% in coordination of care (as documented) at patient's floor/unit and/or counseling patient: Coding Level of Care Code 80230 Subseq Hosp Care Lvl 3 Diagnoses Stroke I63.9 Encephalopathy G93.40 Closed left hip fracture S72.002A Inadequate oral intake R63.8 HTN (hypertension) I10 Paroxysmal supraventricular tachycardia I47.1 Pulmonary congestion R09.89 Hypokalemia E87.6
[2022-01-09] MEDS: ASCORBIC ACID 500 MG TAB PO SCH (10:15)
[2022-01-09] MEDS: FEXOFENADINE HCL 180 MG TAB PO SCH (10:16)
[2022-01-09] MEDS: METOPROLOL TARTRATE 25 MG TAB PO SCH ×2 (10:16→22:38)
[2022-01-09] MEDS: CHOLECALCIFEROL 1,000 UNITS 25 MCG TAB PO SCH (10:16)
[2022-01-09] MEDS: CLOPIDOGREL BISULFATE 75 MG TAB PO SCH (10:16)
[2022-01-09] MEDS: PANTOprazole 40 MG TAB PO SCH (10:16)
[2022-01-09] MEDS: SERTRALINE HCL 100 MG TABLET PO SCH (10:17)
[2022-01-09] MEDS: FLUTICASONE/VILANTEROL 100/25MCG 14 PUFFS/INHALER INH SCH (10:17)
[2022-01-09] MEDS: FAMOTIDINE 20 MG TAB PO SCH (10:17)
[2022-01-09] MEDS: MAGNESIUM OXIDE 400 MG TAB PO SCH (10:17)
[2022-01-09] MEDS: amLODIPine BESYLATE 5 MG TAB PO SCH (10:18)
[2022-01-09] MEDS: CALCITRIOL 0.25 MCG CAPSULE PO SCH (10:21)
[2022-01-09] MEDS: ACETAMINOPHEN 325 MG TAB PO PRN ×2 (15:02→22:47)
[2022-01-09] MEDS ORDERED: hydrALAZINE HCL 20 MG/ML VIAL IV PRN (16:54)
[2022-01-09] MEDS ORDERED: POTASSIUM CHLORIDE 20 MEQ/15 ML UDC PO STA (17:07)
[2022-01-09] MEDS ORDERED: METOPROLOL TARTRATE 1 MG/ML VIAL IV SCH (18:00)
--- NOTE | 2022-01-09 18:54 | Communication Note ---
Date of Service: January 09, 2022 Called to bedside this evening due to report from nursing that patient fell out of bed onto her left side striking her head. Patient is alert, knows her name. She complains of headache and "racing heart". Most recent vitals with BP 180 systolic, pulse 68, afebrile, saturating 94% on room air. No head lacerations. Left-sided facial droop unchanged from prior to fall. She does have a left forearm skin tear which was bandaged. Auscultation of heart reveals regular rate and rhythm, non-tachycardic. PERRL, EOMI. strength 5 out of 5 in right upper extremity, 3 out of 5 in left upper extremity. Strength 4 out of 5 in right lower extremity, strength 12 out of 5 in her left lower extremity. This is unchanged from prior to her fall. EKG ordered which showed normal sinus rhythm with sinus arrhythmia, no other concerning findings on EKG. CT head without contrast stat ordered, and Dr. Salina Gale and Dr. Vikash Zacarias (night hospitalists) made aware. Family called and made aware of fall by nursing staff.
--- NOTE | 2022-01-09 19:54 | CT Scan Report ---
CT SCAN OF THE BRAIN WITHOUT IV CONTRAST CLINICAL HISTORY: Fall. COMPARISON STUDY: CT of the brain dated 01/06/2022. TECHNIQUE: Unenhanced axial CT scan of the brain is performed from the vertex to the skull base. A do se lowering technique was utilized adhering to the principles of ALARA. CT DOSE: 537.48 mGy.cm FINDINGS: Brain parenchyma: There is age-related involutional change noting moderate subcortical and periventri cular microangiopathic disease. There is no hemorrhage, mass effect, or evidence of acute territorial ischemia by CT criteria. Chronic lacunar infarcts are seen within the right centrum semiovale. Morin- white matter differentiation is preserved. No extra-axial fluid collection is seen. Ventricles, sulci, cisterns: Prominent secondary to involutional change. Intracranial vasculature: There is atherosclerotic calcification of the cavernous carotid and vertebr al arteries.. Calvarium: The skeletal structures are osteopenic. No depressed calvarial fracture is identified. Sinuses and mastoids: There is mild mucosal thickening within the right maxillary antrum. Trace mucos al thickening and fluid is seen within the sphenoid sinuses. The mastoid air cells are well pneumatiz ed. Orbits: The bony orbits are grossly intact. IMPRESSION: There is no hemorrhage, mass effect, or evidence of acute territorial ischemia by CT tamia augustin. ACT 112: Negative or not required by law. Electronically signed by: Ede Jaramillo M.D. 01/09/2022 7:52 PM
[2022-01-10] MEDS: HEPARIN SOD 5,000 UNIT/0.5 ML VIAL SQ SCH ×3 (05:52→22:58)
--- NOTE | 2022-01-10 07:40 | Hospitalist Progress Note ---
Date of Service January 10, 2022 Assessment & Plan (1) Stroke: Plan: 81-year-old female past medical history significant for paroxysmal SVT, dementia, CKD, and hypertension admitted following a fall with left hip fracture, and during admission found to have a subacute to acute CVA. CVA: Patient presented to the emergency room with moderate confusion, lethargy, slurred speech, left-sided facial droop which per received report was baseline. CT head on admission negative for acute ischemia. MRI brain performed 01/06 revealed numerous small foci of restricted diffusion throughout the right hemisphere suggesting acute/subacute stroke. Left-sided facial droop, left arm/hand weakness and left-sided neglect are improved significantly compared to my exam of the patient on 01/06. A1c 5.4%. Echocardiogram did not reveal any shunting. Lipid panel reveals LDL of 64; will defer statin at this time given LDL less than 70. Neurology consulted and appreciate recommendations: Initially was some concern for hemorrhage, however fortunately CT head does not show evidence of hemorrhage. No evidence of significant carotid occlusion on CTA neck. Continue Plavix in the lieu of aspirin. Continue amlodipine for blood pressure control. Speech therapy evaluated patient today and unfortunately patient is refusing to eat most of the time and requires a significant amount of encouragement to even take her medications. Recommended [employer] services on discharge. PT and OT recommend acute rehab; [facility] referral pending. I am concerned about patient's overall poor prognosis given her poor nutritional status and what seems to be her new baseline in cognition/motor skills. Will need to discuss goals of care with family as I am concerned that patient will not be able to participate in therapy due to her mental status, which I believe is associated with her stroke. (2) Encephalopathy: Plan: Suspect secondary to the above. Patient is alert and oriented to person and place with significant prompting, however she sleeps most of the day and does not engage much in conversation No evidence of infection. CT head negative for hemorrhage. (3) Closed left hip fracture: Plan: Presented with left hip pain following a fall at her skilled nursing residence. X-ray showed nondisplaced intertrochanteric fracture of the left proximal femur. Status post left trochanteric femoral nailing by Dr. Sotelo on 01/01. PT and OT as able with partial left foot weightbearing. Heparin ordered for DVT ppx. Pain control as needed. Acute rehab on discharge if patient is deemed able to go. (4) Inadequate oral intake: Plan: Since patient's stroke, she has had significant reduction in her oral intake from baseline, which per family prior to stroke was very small meals and tea and toast style diet. Cueing and assistance with all meals. Boost and dietary consult ordered. (5) HTN (hypertension): Plan: BP goal systolic less than 180 as patient is out of the acute CVA window and does not have a hemorrhagic stroke. Continue amlodipine. (6) Paroxysmal supraventricular tachycardia: Plan: Continue telemetry. Continue metoprolol 25 mg p.o. twice daily. (7) Pulmonary congestion: Plan: Patient complained of mild SOB on 01/04/2022. Chest X ray showed evidence of mild pulmonary congestion. Resolved since that time. Plan CODE STATUS: DNR/DNI; has an advanced directive on chart FEN: Pured diet per speech therapy DVT prophylaxis: Heparin 5000 units SQ every 8 hours Dispo: Med/Tele Admission and Anticipated Discharge Date Admission Date: December 29, 2021 Subjective Please see supplemental note for evening events. Patient fell out of bed and hit her head. CT head without evidence of bleed. Patient did not get any sleep overnight due to restlessness, however appears comfortable on my interview this morning, answering questions in a similar fashion to yesterday. Review of Systems Constitutional: no fever and no chills Respiratory: no cough and no dyspnea Cardiovascular: no chest pain and no palpitations Gastrointestinal: no abdominal pain, no nausea and no vomiting Physical Exam Constitutional: + thin; no acute distress Eyes: PERRL; no conjunctival abnormality and no scleral abnormality Respiratory: normal respiratory effort, lungs clear to auscultation Cardiovascular: RRR, no murmur, no edema Gastrointestinal (Abdomen): normal bowel sounds, soft, nontender, no hepatosplenomegaly Skin: no rashes, warm and dry Psychiatric: Orientation: alert, oriented to person and oriented to place Results & Data Results & Data ([facility]) Vital Signs (Past 12 Hours) Vital Signs Temp Pulse Resp BP Pulse Ox O2 Del Method 01/10/22 03:57 36.7 C 68 18 178/63 H 96 Room Air 01/09/22 22:40 161/73 H 01/09/22 23:51 36.8 C 69 20 152/67 H 92 Room Air 01/09/22 20:08 36.9 C 78 20 97/57 L 98 Room Air PG Care Time/CCT Total # of Minutes Spent Total Time Spent with Patient: Total time spent is greater than 50% in coordination of care (as documented) at patient's floor/unit and/or counseling patient: Coding Level of Care Code 62721 Subseq Hosp Care Lvl 3 Diagnoses Stroke I63.9 Encephalopathy G93.40 Closed left hip fracture S72.002A Inadequate oral intake R63.8 HTN (hypertension) I10 Paroxysmal supraventricular tachycardia I47.1 Pulmonary congestion R09.89
[2022-01-10] MEDS: traMADol HCL 50 MG TABLET PO PRN (08:29)
[2022-01-10] MEDS: ACETAMINOPHEN 325 MG TAB PO PRN (08:29)
[2022-01-10] MEDS: METOPROLOL TARTRATE 25 MG TAB PO SCH ×2 (08:30→22:58)
[2022-01-10] MEDS: ASCORBIC ACID 500 MG TAB PO SCH (08:31)
[2022-01-10] MEDS: FAMOTIDINE 20 MG TAB PO SCH (08:31)
[2022-01-10] MEDS: MAGNESIUM OXIDE 400 MG TAB PO SCH (08:31)
[2022-01-10] MEDS: CLOPIDOGREL BISULFATE 75 MG TAB PO SCH (08:31)
[2022-01-10] MEDS: amLODIPine BESYLATE 5 MG TAB PO SCH (08:31)
[2022-01-10] MEDS: CHOLECALCIFEROL 1,000 UNITS 25 MCG TAB PO SCH (08:31)
[2022-01-10] MEDS: SERTRALINE HCL 100 MG TABLET PO SCH (08:31)
[2022-01-10] MEDS: FLUTICASONE/VILANTEROL 100/25MCG 14 PUFFS/INHALER INH SCH (08:32)
[2022-01-10] MEDS: MULTIVITAMIN CHEWABLE TAB PO SCH (08:32)
[2022-01-10] MEDS: POTASSIUM CHLORIDE 20 MEQ/15 ML UDC PO SCH (08:33)
[2022-01-10 09:38] LABS: Hematocrit (blood only) 28.8 % (34.1-44.9); Hemoglobin 10.1 g/dl (12.0-16.0); Mean Corpuscular Hemoglobin 31.6 pg (25.0-34.0); Mean Corpuscular Hgb Conc 35.1 g/dL (32.0-36.0); Mean Platelet Volume 11.3 fL (9.4-12.3); Platelet Count 127 K/uL (130-400); RDW Coefficient of Variation 13.4 % (11.5-14.5); White Blood Count 9.19 K/ul (4.8-10.8)
[2022-01-10] MEDS: FEXOFENADINE HCL 180 MG TAB PO SCH (09:40)
[2022-01-10] MEDS: PANTOprazole 40 MG in SYRINGE 0 ML IV SCH (12:00)
--- NOTE | 2022-01-10 18:28 | Electrocardiogram Report ---
Test Reason : Blood Pressure : / mmHG Vent. Rate : 078 BPM Atrial Rate : 078 BPM P-R Int : 128 ms QRS Dur : 072 ms QT Int : 434 ms P-R-T Axes : 073 -19 062 degrees QTc Int : 494 ms Poor data quality, interpretation may be adversely affected Normal sinus rhythm with sinus arrhythmia Normal ECG When compared with ECG of 29-DEC-2021 05:03, No significant change was found Confirmed by Damion Gale ([id number]) on 01/10/2022 6:27:48 PM Referred By: REFERRED SELF Confirmed By:Talon Gale
[2022-01-10] MEDS ORDERED: QUEtiapine FUMARATE 25 MG TABLET PO SCH (21:00)
[2022-01-11] MEDS: HEPARIN SOD 5,000 UNIT/0.5 ML VIAL SQ SCH ×3 (05:58→21:16)
--- NOTE | 2022-01-11 07:38 | Hospitalist Progress Note ---
Date of Service January 11, 2022 Assessment & Plan (1) Stroke: Plan: 81-year-old female past medical history significant for paroxysmal SVT, dementia, CKD, and hypertension admitted following a fall with left hip fracture, and during admission found to have a subacute to acute CVA. CVA: Patient presented to the emergency room with moderate confusion, lethargy, slurred speech, left-sided facial droop which per received report was baseline. CT head on admission negative for acute ischemia. MRI brain performed 01/06 revealed numerous small foci of restricted diffusion throughout the right hemisphere suggesting acute/subacute stroke. Left-sided facial droop, left arm/hand weakness and left-sided neglect are improved significantly compared to my exam of the patient on 01/06. A1c 5.4%. Echocardiogram did not reveal any shunting. Lipid panel reveals LDL of 64; will defer statin at this time given LDL less than 70. Neurology consulted and appreciate recommendations: Initially was some concern for hemorrhage, however fortunately CT head does not show evidence of hemorrhage. No evidence of significant carotid occlusion on CTA neck. Continue Plavix in the lieu of aspirin. Continue amlodipine for blood pressure control. Speech therapy evaluated patient 01/10 and unfortunately patient is refusing to eat most of the time and requires a significant amount of encouragement to even take her medications. Recommended [employer] services on discharge. PT and OT recommend acute rehab; [facility] referral pending. (2) Encephalopathy: Plan: Suspect secondary to the above. Patient is alert and oriented to person and place with significant prompting, however she sleeps most of the day and does not engage much in conversation No evidence of infection. CT head negative for hemorrhage. (3) Closed left hip fracture: Plan: Presented with left hip pain [facility] X-ray showed nondisplaced intertrochanteric fracture of the left proximal femur. Status post left trochanteric femoral nailing by Dr. Sotelo on 01/01. PT and OT as able with partial left foot weightbearing. Heparin ordered for DVT ppx. Pain control as needed. Acute rehab on discharge if patient is deemed able to go. (4) Inadequate oral intake: Plan: Since patient's stroke, she has had significant reduction in her oral intake from baseline, which per family prior to stroke was very small meals and tea and toast style diet. Cueing and assistance with all meals. Boost and dietary consult ordered. Remeron qHS added for depression history with hopes it will also boost her appetite. Daughter reports that mother would not want radical forms of nutrition if she is unable to feed herself, such as TPN, PEG/NG tubes. Consider palliative consult if patient's appetite does not improve with Remeron. (5) HTN (hypertension): Plan: BP goal systolic less than 180 as patient is out of the acute CVA window and does not have a hemorrhagic stroke. Increase amlodipine to 10mg daily. (6) Paroxysmal supraventricular tachycardia: Plan: Continue telemetry. Continue metoprolol 25 mg p.o. twice daily. (7) Pulmonary congestion: Plan: Patient complained of mild SOB on 01/04/2022. Chest X ray showed evidence of mild pulmonary congestion. Resolved since that time. Plan CODE STATUS: DNR/DNI; has an advanced directive on chart FEN: Pured diet per speech therapy DVT prophylaxis: Heparin 5000 units SQ every 8 hours Dispo: Med/Tele Admission and Anticipated Discharge Date Admission Date: December 29, 2021 Subjective Patient without acute events overnight. Did have 1:1 overnight for periods of restlessness. Spoke with daughter this morning who reports she is concerned about patient's oral intake, however that her mom has stated in the past that she would not want aggressive refeeding measures such as NGT/PEG. This morning ate all of her fruit and all of her yogurt. Review of Systems Constitutional: no fever and no chills Respiratory: no cough and no dyspnea Cardiovascular: no chest pain and no palpitations Gastrointestinal: no abdominal pain, no nausea and no vomiting Physical Exam Constitutional: + thin; no acute distress overall able to answer questions with some confusion on small details Eyes: PERRL; no conjunctival abnormality and no scleral abnormality Respiratory: normal respiratory effort, lungs clear to auscultation Cardiovascular: RRR, no murmur, no edema Gastrointestinal (Abdomen): normal bowel sounds, soft, nontender, no hepatosplenomegaly Skin: no rashes, warm and dry Neurologic: Slurred speech, left facial droop Pupils equally round and reactive to light. Left-sided neglect improved Strength 5 out of 5 in right upper extremity and right lower extremity. Strength 3 out of 5 in the left upper extremity. Strength 5 out of 5 in right lower extremity. Strength 3 out of 5 in left lower extremity. Psychiatric: Orientation: alert, oriented to person and oriented to place Results & Data Results & Data ([facility]) Vital Signs (Past 12 Hours) Vital Signs Temp Pulse Pulse Resp BP Pulse Ox O2 Del Method 01/11/22 02:51 36.9 C 62 18 167/78 H 94 Room Air 01/10/22 22:17 63 PG Care Time/CCT Total # of Minutes Spent Total Time Spent with Patient: Total time spent is greater than 50% in coordination of care (as documented) at patient's floor/unit and/or counseling patient: Coding Level of Care Code 23402 Subseq Hosp Care Lvl 3 Diagnoses Stroke I63.9 Encephalopathy G93.40 Closed left hip fracture S72.002A Inadequate oral intake R63.8 HTN (hypertension) I10 Paroxysmal supraventricular tachycardia I47.1 Pulmonary congestion R09.89
[2022-01-11] MEDS: FEXOFENADINE HCL 180 MG TAB PO SCH (08:03)
[2022-01-11] MEDS: MULTIVITAMIN CHEWABLE TAB PO SCH (08:03)
[2022-01-11] MEDS: amLODIPine BESYLATE 5 MG TAB PO SCH (08:03)
[2022-01-11] MEDS: CLOPIDOGREL BISULFATE 75 MG TAB PO SCH (08:03)
[2022-01-11] MEDS: FAMOTIDINE 20 MG TAB PO SCH (08:03)
[2022-01-11] MEDS: ASCORBIC ACID 500 MG TAB PO SCH (08:03)
[2022-01-11] MEDS: FLUTICASONE/VILANTEROL 100/25MCG 14 PUFFS/INHALER INH SCH (08:04)
[2022-01-11] MEDS: METOPROLOL TARTRATE 25 MG TAB PO SCH ×2 (08:04→20:30)
[2022-01-11] MEDS: CHOLECALCIFEROL 1,000 UNITS 25 MCG TAB PO SCH (08:04)
[2022-01-11] MEDS: SERTRALINE HCL 100 MG TABLET PO SCH (08:04)
[2022-01-11] MEDS: MAGNESIUM OXIDE 400 MG TAB PO SCH (08:04)
[2022-01-11] MEDS: POTASSIUM CHLORIDE 20 MEQ/15 ML UDC PO SCH (08:05)
[2022-01-11] MEDS: PANTOprazole 40 MG in SYRINGE 0 ML IV SCH (11:35)
[2022-01-11] MEDS ORDERED: amLODIPine BESYLATE 5 MG TAB PO ONE (15:15)
[2022-01-11] MEDS: ACETAMINOPHEN 325 MG TAB PO PRN (17:50)
[2022-01-11] MEDS: MIRTAZAPINE TAB 15 MG TAB PO SCH (20:30)
[2022-01-12] MEDS: traMADol HCL 50 MG TABLET PO PRN (01:22)
[2022-01-12] MEDS: HEPARIN SOD 5,000 UNIT/0.5 ML VIAL SQ SCH ×3 (05:48→21:17)
[2022-01-12 06:47] LABS: BUN Creatinine Ratio 14.4 (10-20); Calcium 9.5 mg/dl (8.5-10.1); Est GFR (African American) 57.9 ml/min; Magnesium 1.8 mg/dl (1.7-2.4); Potassium 3.2 mmol/L (3.5-5.1)
--- NOTE | 2022-01-12 07:26 | Hospitalist Progress Note ---
Date of Service January 12, 2022 Assessment & Plan (1) Failure to thrive: Plan: Since stroke patient has had significantly reduced oral intake from her baseline, which per patient's daughter was already not very robust. Speech therapy evaluated patient 01/10 and unfortunately patient is refusing to eat most of the time and requires a significant amount of encouragement to even take her medications. Palliative care consult placed today after discussion with daughter, as she is considering pursuit of comfort care rather than aggressive care measures moving forward given the significant decline that has occurred following patient's stroke. Daughter reports that mother would not want radical forms of nutrition if she is unable to feed herself, such as TPN, PEG/NG tubes. (2) Stroke: Plan: 81-year-old female past medical history significant for paroxysmal SVT, dementia, CKD, and hypertension admitted following a fall with left hip fracture, and during admission found to have a subacute to acute CVA. CVA: Patient presented to the emergency room with moderate confusion, lethargy, slurred speech, left-sided facial droop which per received report was baseline. CT head on admission negative for acute ischemia. MRI brain performed 01/06 revealed numerous small foci of restricted diffusion throughout the right hemisphere suggesting acute/subacute stroke. Left-sided facial droop, left arm/hand weakness and left-sided neglect are improved significantly compared to my exam of the patient on 01/06. A1c 5.4%. Echocardiogram did not reveal any shunting. Lipid panel reveals LDL of 64; will defer statin at this time given LDL less than 70. Neurology consulted and appreciate recommendations: Initially was some concern for hemorrhage, however fortunately CT head does not show evidence of hem orrhage. No evidence of significant carotid occlusion on CTA neck. Continue Plavix in the lieu of aspirin. Continue amlodipine for blood pressure control. PT and OT recommend acute rehab; can consider this if patient has improvement in her overall cognitive status. (3) Encephalopathy: Plan: Suspect secondary to the above. Patient is alert and oriented to person and place with significant prompting, however she sleeps most of the day and does not engage much in conversation. No evidence of infection. CT head negative for hemorrhage. (4) Closed left hip fracture: Plan: Presented with left hip pain following a fall at her snf residence. X-ray showed nondisplaced intertrochanteric fracture of the left proximal femur. Status post left trochanteric femoral nailing by Dr. Sotelo on 01/01. PT and OT as able with partial left foot weightbearing. Heparin ordered for DVT ppx. Pain control as needed. Acute rehab on discharge if patient is deemed able to go. (5) Inadequate oral intake: Plan: Since patient's stroke, she has had significant reduction in her oral intake from baseline, which per family prior to stroke was very small meals and tea and toast style diet. Cueing and assistance with all meals. Boost and dietary consult ordered. Remeron qHS added for depression history with hopes it will also boost her appetite. Daughter reports that mother would not want radical forms of nutrition if she is unable to feed herself, such as TPN, PEG/NG tubes. Palliative care consult placed today. (6) HTN (hypertension): Plan: BP goal systolic less than 180 as patient is out of the acute CVA window and does not have a hemorrhagic stroke. Continue amlodipine to 10mg daily. (7) Paroxysmal supraventricular tachycardia: Plan: Continue telemetry. Continue metoprolol 25 mg p.o. twice daily. (8) Pulmonary congestion: Plan: Patient complained of mild SOB on 01/04/2022. Chest X ray showed evidence of mild pulmonary congestion. Resolved since that time. Plan CODE STATUS: DNR/DNI; has an advanced directive on chart FEN: Pured diet per speech therapy DVT prophylaxis: Heparin 5000 units SQ every 8 hours Dispo: Med/Tele Admission and Anticipated Discharge Date Admission Date: December 29, 2021 Subjective Overnight patient was very restless, had one-to-one in place to maintain patient's safety. Patient has periods of alertness, she will smile and nod, and sometimes answer questions appropriately. However, per nursing staff, she is still having very poor oral intake and refused her medications this morning. Had conversation with patient's daughter over the phone today, who expressed that she is starting to prepare herself that her mom might not recover from this event given how profound her decline has been over the last week. Review of Systems Review of Systems: Unobtainable due to cognitive status Physical Exam Constitutional: + thin; no acute distress Eyes: PERRL; no conjunctival abnormality and no scleral abnormality Respiratory: normal respiratory effort, lungs clear to auscultation Cardiovascular: RRR, no murmur, no edema Gastrointestinal (Abdomen): normal bowel sounds, soft, nontender, no hepatosplenomegaly Skin: no rashes, warm and dry Psychiatric: Orientation: alert and oriented to person Results & Data Results & Data ([facility]) Vital Signs (Past 12 Hours) Vital Signs Temp Pulse Pulse Resp BP Pulse Ox O2 Del Method 01/11/22 22:55 36.6 C 66 18 153/70 H 93 Room Air 01/11/22 22:32 72 PG Care Time/CCT Total # of Minutes Spent Total Time Spent with Patient: Total time spent is greater than 50% in coordination of care (as documented) at patient's floor/unit and/or counseling patient: Coding Level of Care Code 20090 Subseq Hosp Care Lvl 3 Diagnoses Failure to thrive Stroke I63.9 Encephalopathy G93.40 Closed left hip fracture S72.002A Inadequate oral intake R63.8 HTN (hypertension) I10 Paroxysmal supraventricular tachycardia I47.1 Pulmonary congestion R09.89
[2022-01-12] MEDS: METOPROLOL TARTRATE 25 MG TAB PO SCH ×3 (07:58→21:16)
[2022-01-12] MEDS: CHOLECALCIFEROL 1,000 UNITS 25 MCG TAB PO SCH ×2 (07:58→12:39)
[2022-01-12] MEDS: MULTIVITAMIN CHEWABLE TAB PO SCH ×2 (07:59→12:40)
[2022-01-12] MEDS: amLODIPine BESYLATE 5 MG TAB PO SCH ×2 (07:59→12:39)
[2022-01-12] MEDS: CLOPIDOGREL BISULFATE 75 MG TAB PO SCH ×2 (08:00→12:40)
[2022-01-12] MEDS: FAMOTIDINE 20 MG TAB PO SCH ×2 (08:01→12:40)
[2022-01-12] MEDS: MAGNESIUM OXIDE 400 MG TAB PO SCH ×2 (08:01→12:40)
[2022-01-12] MEDS: ASCORBIC ACID 500 MG TAB PO SCH ×2 (08:01→12:39)
[2022-01-12] MEDS: FEXOFENADINE HCL 180 MG TAB PO SCH ×2 (08:02→12:40)
[2022-01-12] MEDS: FLUTICASONE/VILANTEROL 100/25MCG 14 PUFFS/INHALER INH SCH ×2 (08:02→12:40)
[2022-01-12] MEDS: POTASSIUM CHLORIDE 20 MEQ/15 ML UDC PO SCH ×2 (08:03→12:40)
[2022-01-12] MEDS: PANTOprazole 40 MG in SYRINGE 0 ML IV SCH (11:14)
[2022-01-12] MEDS: POTASSIUM CHLORIDE / WTR 10 MEQ/100 ML PLCT IV SCH ×3 (14:30→18:07)
[2022-01-12] MEDS: MAGNESIUM SULFATE / D5W 1 GM/100 ML BAG IV SCH ×2 (14:30→17:31)
[2022-01-12] MEDS: ACETAMINOPHEN 325 MG TAB PO PRN (15:18)
[2022-01-12 17:14] LABS: Anion Gap 8.7 (3-11)
[2022-01-12] MEDS: MIRTAZAPINE TAB 15 MG TAB PO SCH (21:16)
[2022-01-12 22:38] LABS: Appearance Urine Cloudy (Clear); Bacteria Urine Automated 3+ (Negative); Bilirubin Urine Negative (Negative); Blood Urine 2+ (Negative); Color Urine Yellow; Epithelial Cell Urine Auto 0-5 /lpf (0-5); Glucose Urine UA Negative (Negative); Ketones Urine Negative (Negative); Leukocyte Esterase Urine 3+ (Negative); Nitrite Urine Positive (Negative); Protein Urine 1+ (Negative); Urobilinogen Urine Negative (Negative); WBC Urine Automated >30 /hpf (0-5)
[2022-01-13] MEDS: HEPARIN SOD 5,000 UNIT/0.5 ML VIAL SQ SCH (05:39)
[2022-01-13] MEDS: CHOLECALCIFEROL 1,000 UNITS 25 MCG TAB PO SCH ×2 (08:01→08:15)
[2022-01-13] MEDS: POTASSIUM CHLORIDE 20 MEQ/15 ML UDC PO SCH ×2 (08:01→08:16)
[2022-01-13] MEDS: ASCORBIC ACID 500 MG TAB PO SCH ×2 (08:01→08:16)
[2022-01-13] MEDS: FEXOFENADINE HCL 180 MG TAB PO SCH ×2 (08:01→08:16)
[2022-01-13] MEDS: CLOPIDOGREL BISULFATE 75 MG TAB PO SCH ×2 (08:01→08:15)
[2022-01-13] MEDS: MULTIVITAMIN CHEWABLE TAB PO SCH ×2 (08:01→08:16)
[2022-01-13] MEDS: METOPROLOL TARTRATE 25 MG TAB PO SCH (08:01)
[2022-01-13] MEDS: MAGNESIUM OXIDE 400 MG TAB PO SCH ×2 (08:01→08:15)
[2022-01-13] MEDS: amLODIPine BESYLATE 5 MG TAB PO SCH ×2 (08:01→08:15)
[2022-01-13] MEDS: FAMOTIDINE 20 MG TAB PO SCH ×2 (08:01→08:15)
[2022-01-13] MEDS: FLUTICASONE/VILANTEROL 100/25MCG 14 PUFFS/INHALER INH SCH (09:51)
[2022-01-13] MEDS: PANTOprazole 40 MG in SYRINGE 0 ML IV SCH (10:22)
--- NOTE | 2022-01-13 12:30 | Hospitalist Progress Note ---
Date of Service January 13, 2022 Assessment & Plan (1) Failure to thrive: Plan: Since stroke patient has had significantly reduced oral intake from her baseline, which per patient's daughter was already not very robust. Speech therapy evaluated patient 01/10 and unfortunately patient is refusing to eat most of the time and requires a significant amount of encouragement to even take her medications. - Palliative care consult placed as daughter is considering pursuit of comfort care - Daughter reports that mother would not want radical forms of nutrition if she is unable to feed herself, such as TPN, PEG/NG tubes. (2) Stroke: Plan: MRI brain performed 01/06 revealed numerous small foci of restricted diffusion throughout the right hemisphere suggesting acute/subacute stroke. - Neurology consulted and appreciate recommendations: * Continue Plavix in the lieu of aspirin. * Continue amlodipine for blood pressure control. - PT and OT recommend acute rehab; can consider this if patient has improvement in her overall cognitive status. (3) Encephalopathy: Plan: Suspect secondary to the above. Patient is alert and oriented to person and place with significant prompting; however, she sleeps most of the day and does not engage much in conversation. No evidence of infection. Urine cx is growing multiple bacteria, but no indication of infection. Believe this is asymptomatic bacteruria. (4) HTN (hypertension): Plan: BP goal systolic less than 180 as patient is out of the acute CVA window and does not have a hemorrhagic stroke. BP stable at 135/70 today. - Continue amlodipine to 10mg daily. (5) Closed left hip fracture: Plan: Presented with left hip pain following a fall at her long-term residence. X- ray showed nondisplaced intertrochanteric fracture of the left proximal femur. - Status post left trochanteric femoral nailing by Dr. Sotelo on 01/01. - PT and OT as able with partial left foot weightbearing. - Heparin ordered for DVT ppx. - Pain control as needed. (6) Inadequate oral intake: Plan: Since patient's stroke, she has had significant reduction in her oral intake from baseline, which per family prior to stroke was very small meals and tea and toast style diet. - Cueing and assistance with all meals. - Boost and dietary consult ordered. - Remeron qHS added for depression history with hopes it will also boost her appetite. - Daughter reports that mother would not want radical forms of nutrition if she is unable to feed herself, such as TPN, PEG/NG tubes. (7) Paroxysmal supraventricular tachycardia: Plan: - Continue telemetry. - Continue metoprolol 25 mg p.o. twice daily. Plan CODE STATUS: DNR/DNI; has an advanced directive on chart FEN: Pured diet per speech therapy DVT prophylaxis: Heparin 5000 units SQ every 8 hours Admission and Anticipated Discharge Date Admission Date: December 29, 2021 Subjective Doing well today. Very pleasant. Notes some pain up and down the left leg, but does not really pinpoint any area. She is very interactive, attentive, but responds with different answers. AAOx1. Knows self, knows she's in [place], but does not know she is in a hospital or what she is here for. Physical Exam Constitutional: WD/WN, vitals as above Eyes: EOM intact bilaterally; no conjunctival abnormality ENMT: external ear and nose normal, oropharynx normal Neck: trachea midline, no thyromegaly normal visual inspection Respiratory: normal respiratory effort, lungs clear to auscultation no respiratory distress Cardiovascular: RRR, no murmur, no edema Gastrointestinal (Abdomen): Inspection/Auscultation: abdomen normal to inspection; abdomen not distended Musculoskeletal: no cyanosis or clubbing, extremities motor strength 5/5 Skin: no rashes, warm and dry Neurologic: moves all extremities and awake Psychiatric: Orientation: alert, oriented to person and cooperative Results & Data Results & Data ([facility]) Vital Signs (Past 12 Hours) Vital Signs Temp Pulse Pulse Resp BP Pulse Ox O2 Del Method 01/13/22 08:00 Room Air 01/13/22 08:00 36.8 C 78 16 137/72 95 Room Air 01/13/22 04:02 36.6 C 78 20 168/78 H 20 L 01/13/22 01:19 76 PG Care Time/CCT Total # of Minutes Spent Total Time Spent with Patient: Total time spent is greater than 50% in coordination of care (as documented) at patient's floor/unit and/or counseling patient: Coding Level of Care Code 78074 Subseq Hosp Care Lvl 2 Diagnoses Failure to thrive Stroke I63.9 Encephalopathy G93.40 HTN (hypertension) I10 Closed left hip fracture S72.002A Inadequate oral intake R63.8 Paroxysmal supraventricular tachycardia I47.1
[2022-01-13] MEDS ORDERED: ONDANSETRON INJ 2 MG/ML 2 ML VIAL IV PRN (15:58)
[2022-01-13] MEDS ORDERED: ONDANSETRON 4 MG OD TAB SL PRN (15:58)
[2022-01-13] MEDS ORDERED: HYOSCYAMINE SULFATE 0.125 MG TAB SL PRN (15:58)
--- NOTE | 2022-01-13 16:21 | Palliative Care Consultation ---
Date of Consultation January 13, 2022 Assessment & Plan (1) Failure to thrive: I spoke with Mrs. Ambriz's daughter, Debra Lo, on the phone. She tells me that her mother had talked in the past about her wishes for care and Debra is confident that she would not want artificial nutrition. We discussed failure to thrive as a common problem in people with advanced dementia. She also suspects that this may be a conscious decision on her mother's part. We discussed providing nutrition when tolerated and maximizing calories, which is currently in place. Unfortunately, Mrs. Ambriz continues to lose weight. (2) Palliative care encounter: Debra expressed concern that her mother is suffering and she does not want her to suffer any longer. She feels that her mother has had a lot of suffering in her life and has battled chronic depression. She does not feel that Mrs. Ambriz has a quality of life that would be acceptable to her at this time. SHe is also concerned that her mother is having pain and unable to indicate that. We talked about scheduled dosing of pain medication to provide baseline pain relief and that would be Debra's preference. We discussed continuing supportive care along with symptom management versus a comfort focused approach to her care. Debra said that she would like her mother to just be comfortable for the few remaining days that she has. Orders changed for comfort care to reflect this. Low dose morphine ordered on scheduled basis to provide more consistent analgesia. DR. Hernandez aware. History of Present Illness Reason for Consultation: goals of care Requesting Physician: Dr. Mcdaniel Attending Physician: Damian Hernandez MD History of Present Illness 81 yo lady with dementia and COPD who fell and fractured her left hip. She did have surgical repair with internal fixation and nail placement. On 01/06 she was found to have right MCA ischemic CVA. She has had poor appetite and refuses medications at times. Her daughter notes that her appetite has been declining and she questions whether her mother is "giving up". She has been seen by speech therapy with diet recommendations. She is sleeping but arousable. She does answer some questions but speech is generally unintelligible. She answers no when asked about pain but nursing tells me that she had been complaining of pain in her left leg and knees earlier. Allergies Allergy/AdvReac Type Severity Reaction Status Date / Time codeine Allergy Unknown Verified 12/29/21 07:11 shellfish derived Allergy Unknown UNKNOWN Verified 12/29/21 07:11 Home Medications Medication Instructions Recorded Confirmed Type ascorbate calcium (vitamin C) 500 500 mg PO DAILY 07/26/19 12/29/21 History mg tablet aspirin 81 mg tablet,delayed 81 mg PO DAILY 07/26/19 12/29/21 History release (Adult Low Dose Aspirin) calcitriol 0.25 mcg capsule 0.25 mcg PO DAILY 07/26/19 12/29/21 History cholecalciferol (vitamin D3) 50 50 mcg PO DAILY 07/26/19 12/29/21 History mcg (2,000 unit) capsule diltiazem HCl 180 mg 180 mg PO DAILY 07/26/19 12/29/21 History capsule,extended release 24 hr (Cardizem CD) magnesium 250 mg tablet 250 mg PO DAILY 07/26/19 12/29/21 History omeprazole 40 mg capsule,delayed 40 mg PO DAILY 07/26/19 12/29/21 History release fluticasone furoate 200 1 puffs inhalation DAILY #1 inhaler 11/07/19 12/29/21 Rx mcg-vilanterol 25 mcg/dose inhalation powder (Breo Ellipta) fexofenadine 180 mg tablet 180 mg PO DAILY #30 tabs 04/03/20 12/29/21 Rx ([facility]) azelastine 137 mcg (0.1 %) nasal 1 spray intranasal BID PRN 12/29/21 12/29/21 History spray aerosol Congestion budesonide 0.5 mg/2 mL suspension 0.5 mg inhalation UD 12/29/21 12/29/21 History for nebulization famotidine 20 mg tablet 20 mg PO DAILY 12/29/21 12/29/21 History formoterol fumarate 20 mcg/2 mL 20 mcg inhalation UD 12/29/21 12/29/21 History solution for nebulization (Perforomist) metoprolol tartrate 25 mg tablet 25 mg PO BID 12/29/21 12/29/21 History sertraline 100 mg tablet 100 mg PO DAILY 12/29/21 12/29/21 History Patient History Medical History Achalasia Anxiety Aortic insufficiency Asthma Chest pain Depression Diverticulosis Dyspnea Essential hypertension Gastroparesis GERD (gastroesophageal reflux disease) Hiatal hernia Kidney disease, chronic, stage III (GFR 30-59 ml/min) Mitral valve disorder Palpitations Paroxysmal supraventricular tachycardia Premature beats Pure hyperglyceridemia Seborrheic keratosis Skin cancer Tachycardia Thyroid nodule Surgical History H/O removal of cyst H/O total hysterectomy History of appendectomy History of cardiac cath History of cholecystectomy History of tonsillectomy and adenoidectomy Family History Brother Hypertension Diabetes Lung cancer Sister Hypertension Social History Smoking Status: Never smoker Hx Alcohol Use: No Hx Substance Use: No Preferred Language: [place] Communication Ability: Effective Cleaner Laboratory Equipment Required: No Beliefs That Will Affect Care: None marital status: Current Living Situation: Personal Care Facility Current Living Situation Comment: [employer] current occupational status: retired Other Information That Helps Us Care for You: No Feels Safe at Home: Yes Safety Concerns: Feels Safe At This Time caffeine: Yes Seatbelt Use: always Assistive Devices: None Review of Systems Review of Systems: Unobtainable due to cognitive status Physical Exam Constitutional: + thin and + frail appearing Respiratory: normal respiratory effort; no labored breathing Cardiovascular: Rate/Rhythm: regular rate and regular rhythm Neurologic: Speech / Cognition: + abnormal cognition Results & Data ([facility]) Vital Signs (Past 12 Hours) Vital Signs Temp Pulse Pulse Resp BP Pulse Ox O2 Del Method 01/13/22 15:00 68 01/13/22 08:00 Room Air 01/13/22 08:00 98.2 F 78 16 137/72 95 Room Air PG Care Time/CCT Total # of Minutes Spent Total Time Spent: 58 Total Time Spent with Patient: Total time spent is greater than 50% in coordination of care (as documented) at patient's floor/unit and/or counseling patient: goals of care, symptom management, family education and support. Coding Level of Care Code 82007 Initial Inpt Care Lvl 2 Diagnoses Failure to thrive Palliative care encounter Z51.5
[2022-01-13] MEDS: MoRPHine SULFATE 5 MG/0.25 ML UDP PO SCH ×2 (16:54→22:37)
[2022-01-13] MEDS ORDERED: HEPARIN SOD 5,000 UNIT/0.5 ML VIAL SQ SCH (21:00)
[2022-01-13] MEDS: LORazepam 0.5 MG TAB PO PRN (21:52)
[2022-01-13] MEDS: MoRPHine SULFATE 5 MG/0.25 ML UDP PO PRN (21:55)
[2022-01-13] MEDS: MIRTAZAPINE TAB 15 MG TAB PO SCH (21:56)
[2022-01-14] MEDS: MoRPHine SULFATE 5 MG/0.25 ML UDP PO SCH ×4 (04:35→20:21)
--- NOTE | 2022-01-14 12:15 | Hospitalist Progress Note ---
Date of Service January 14, 2022 Assessment & Plan (1) Failure to thrive: Plan: Since stroke patient has had significantly reduced oral intake from her baseline, which per patient's daughter was already not very robust. Speech therapy evaluated patient 01/10 and unfortunately patient is refusing to eat most of the time and requires a significant amount of encouragement to even take her medications. - Palliative care consult placed as daughter is considering pursuit of comfort care - Daughter reports that mother would not want radical forms of nutrition if she is unable to feed herself, such as TPN, PEG/NG tubes. Now on comfort measure with standing pain medication as concern with palliative was that she was not able to verbalize pain. (2) Stroke: Plan: MRI brain performed 01/06 revealed numerous small foci of restricted diffusion throughout the right hemisphere suggesting acute/subacute stroke. - Neurology consulted and appreciate recommendations: * Continue Plavix in the lieu of aspirin. * Continue amlodipine for blood pressure control. - PT and OT recommended acute rehab; defer this for comfort measures. (3) Encephalopathy: Plan: Suspect secondary to the above. Patient is alert and oriented to person and place with significant prompting; however, she sleeps most of the day and does not engage much in conversation. No evidence of infection. Urine cx is growing multiple bacteria, but no indication of infection. Believe this is asymptomatic bacteruria. (4) HTN (hypertension): Plan: BP goal systolic less than 180 as patient is out of the acute CVA window and does not have a hemorrhagic stroke. BP stable at 135/70 today. - Continue amlodipine to 10mg daily. (5) Closed left hip fracture: Plan: Presented with left hip pain following a fall at her residential residence. X- ray showed nondisplaced intertrochanteric fracture of the left proximal femur. - Status post left trochanteric femoral nailing by Dr. Sotelo on 01/01. - PT and OT as able with partial left foot weight-bearing. - Heparin ordered for DVT ppx. - Pain control as needed. (6) Inadequate oral intake: Plan: Since patient's stroke, she has had significant reduction in her oral intake from baseline, which per family prior to stroke was very small meals and tea and toast style diet. - Cueing and assistance with all meals. - Boost and dietary consult ordered. - Remeron qHS added for depression history with hopes it will also boost her appetite. - Daughter reports that mother would not want radical forms of nutrition if she is unable to feed herself, such as TPN, PEG/NG tubes. (7) Paroxysmal supraventricular tachycardia: Plan: - Continue telemetry. - Continue metoprolol 25 mg p.o. twice daily. Plan CODE STATUS: DNR/DNI; has an advanced directive on chart FEN: Pured diet per speech therapy DVT prophylaxis: Heparin 5000 units SQ every 8 hours Admission and Anticipated Discharge Date Admission Date: December 29, 2021 Subjective Sleeping comfortably when I am in. Per sitter, has been asleep all AM. Physical Exam Constitutional: WD/WN, vitals as above Eyes: EOM intact bilaterally; no conjunctival abnormality ENMT: external ear and nose normal, oropharynx normal Neck: trachea midline, no thyromegaly normal visual inspection Respiratory: normal respiratory effort, lungs clear to auscultation no respiratory distress Cardiovascular: RRR, no murmur, no edema Gastrointestinal (Abdomen): Inspection/Auscultation: abdomen normal to inspection; abdomen not distended Musculoskeletal: no cyanosis or clubbing, extremities motor strength 5/5 Skin: no rashes, warm and dry Neurologic: + not awake (Asleep) Psychiatric: Orientation: oriented to person and cooperative Results & Data Results & Data ([facility]) Vital Signs (Past 12 Hours) Vital Signs Temp Pulse Resp BP Pulse Ox O2 Del Method 01/14/22 07:31 36.5 C 60 18 158/68 H 95 Room Air PG Care Time/CCT Total # of Minutes Spent Total Time Spent with Patient: Total time spent is greater than 50% in coordination of care (as documented) at patient's floor/unit and/or counseling patient: Coding Level of Care Code 32048 Subseq Hosp Care Lvl 2 Diagnoses Failure to thrive Stroke I63.9 Encephalopathy G93.40 HTN (hypertension) I10 Closed left hip fracture S72.002A Inadequate oral intake R63.8 Paroxysmal supraventricular tachycardia I47.1
[2022-01-14] MEDS: bisacodyL 10 MG SUPP PR PRN (16:22)
[2022-01-14] MEDS: MoRPHine SULFATE 5 MG/0.25 ML UDP PO PRN (17:16)
[2022-01-14] MEDS: MIRTAZAPINE TAB 15 MG TAB PO SCH (20:03)
[2022-01-14] MEDS: LORazepam 0.5 MG TAB PO PRN (20:07)
[2022-01-15] MEDS: MoRPHine SULFATE 5 MG/0.25 ML UDP PO SCH ×3 (05:36→12:35)
--- NOTE | 2022-01-15 16:24 | Discharge Summary ---
Date of Service January 15, 2022 Admission HPI Per Admitting Provider Is an 81-year-old shelter resident with a history of dementia, COPD, HTN, who was brought from a shelter resident following a fall. Patient is a poor historian given a history of dementia so most of the history was obtained from chart review and ED doctor. In the emergency department, vital signs are stable, CBC BMP were essentially within normal limits however an x-ray of the hip was done which showed evidence of a nondisplaced intertrochanteric fracture of the left proximal femur. Patient will be admitted to the hospital, orthopedics consulted for further management. Of note, the surrogate decision maker is his daughter, call has been placed awaiting callback. Principal Diagnosis Hip fracture, stroke Discharge Exam Constitutional WD/WN, vitals as above Eyes EOM intact bilaterally; no conjunctival abnormality ENMT external ear and nose normal, oropharynx normal Neck trachea midline, no thyromegaly normal visual inspection Respiratory normal respiratory effort, lungs clear to auscultation no respiratory distress Cardiovascular RRR, no murmur, no edema Gastrointestinal (Abdomen) Inspection/Auscultation: abdomen normal to inspection; abdomen not distended Musculoskeletal no cyanosis or clubbing, extremities motor strength 5/5 Skin no rashes, warm and dry Neurologic moves all extremities; + not awake (Asleep) Psychiatric Orientation: alert, oriented to person and cooperative Discharge Data Allergies Allergy/AdvReac Type Severity Reaction Status Date / Time codeine Allergy Unknown Verified 12/29/21 07:11 shellfish derived Allergy Unknown UNKNOWN Verified 12/29/21 07:11 Consultations 12/29/21 07:59 ED Decision to Admit Stat 12/29/21 12:01 Consult Orthopedic Surgery Routine 12/30/21 14:26 Consult Cardiology Routine 01/06/22 11:33 Consult Neurology Routine 01/12/22 12:37 Consult Palliative Care Routine 01/13/22 15:59 Consult Palliative Care Routine Procedures Performed Operation Date: 12/30/21 16:00 <No data on this case meets the specified criteria> Operation Date: 01/01/22 08:20 Actual Procedures p Left Troch Nail(Left) - Alex Sotelo MD Ordered Studies 01/01/22 FL hip LT 2-3V Routine 01/04/22 16:19 CT head/brain wo con Stat 01/06/22 MR brain wo con Routine 01/06/22 14:06 CT head/brain wo con Stat 01/06/22 14:18 CTA head w con [CT angio head w con] Stat CTA neck with con [CT angio neck with con] Stat 01/08/22 11:30 FL video swallow Routine 01/09/22 18:47 CT head/brain wo con Stat Hospital Course (1) Failure to thrive: Since stroke patient has had significantly reduced oral intake from her baseline, which per patient's daughter was already not very robust. Speech therapy evaluated patient 01/10 and unfortunately patient is refusing to eat most of the time and requires a significant amount of encouragement to even take her medications. - Palliative care consult placed as daughter is considering pursuit of comfort care - Daughter reports that mother would not want radical forms of nutrition if she is unable to feed herself, such as TPN, PEG/NG tubes. Now on comfort measure with standing pain medication as concern with palliative was that she was not able to verbalize pain. Discharged with hospice. Standing morphine started by palliative care as provider and daughter felt she was unable to express that her left leg was painful from the fracture. She had some sundowning and agitation, but Remeron at night seemed to help her sleep and Ativan was sent PRN on discharge. (2) Stroke: MRI brain performed 01/06 revealed numerous small foci of restricted diffusion throughout the right hemisphere suggesting acute/subacute stroke. - Neurology consulted and appreciate recommendations: * Continue Plavix in the lieu of aspirin. * Continue amlodipine for blood pressure control. - PT and OT recommended acute rehab; defer this for comfort measures. (3) Encephalopathy: Suspect secondary to the above. Patient is alert and oriented to person and place with significant prompting; however, she sleeps most of the day and does not engage much in conversation. No evidence of infection. Urine cx is growing multiple bacteria, but no indication of infection. Believe this is asymptomatic bacteruria. (4) HTN (hypertension): BP goal systolic less than 180 as patient is out of the acute CVA window and does not have a hemorrhagic stroke. BP stable at 135/70 today. - Continue amlodipine to 10mg daily. (5) Closed left hip fracture: Presented with left hip pain following a fall at her shelter residence. X- ray showed nondisplaced intertrochanteric fracture of the left proximal femur. - Status post left trochanteric femoral nailing by Dr. Sotelo on 01/01. - PT and OT as able with partial left foot weight-bearing. - Heparin ordered for DVT ppx. - Pain control as needed. (6) Inadequate oral intake: Since patient's stroke, she has had significant reduction in her oral intake from baseline, which per family prior to stroke was very small meals and tea and toast style diet. - Cueing and assistance with all meals. - Boost and dietary consult ordered. - Remeron qHS added for depression history with hopes it will also boost her appetite. - Daughter reports that mother would not want radical forms of nutrition if she is unable to feed herself, such as TPN, PEG/NG tubes. (7) Paroxysmal supraventricular tachycardia: - Continue telemetry. - Continue metoprolol 25 mg p.o. twice daily. Plan CODE STATUS: DNR/DNI; has an advanced directive on chart FEN: Pured diet per speech therapy DVT prophylaxis: Heparin 5000 units SQ every 8 hours Total Time Total Time Spent Total Time Spent (In Minutes): 35 Discharge Plan Discharge Items Patient Disposition: Hospice - Medical Facility Reason For Visit: HIP FRACTURE Discharge Diagnosis: Hip fracture, stroke, confusion Activity: Resume your previous activity Non-emergency contact: Primary Care Provider Call non-emergency contact if: your symptoms worsen Follow-up/Referrals: Shon Renteria DO [Primary Care Provider] - Diet: Regular Diet Texture: Pureed (blended smooth) Addtl Attending Provider Instructions: Ms. Ambriz was admitted with a hip fracture and then stroke. She has had trouble recovering from the stroke, and family has elected to make her comfortable and discharge on hospice. Pending Studies at Discharge: No Stand-Alone Forms: [facility] Skilled Items Patient informed of condition?: Yes DNR: Yes Discharge Level of Care: Skilled Communicable Disease: No Discharge Prognosis: Stable Lines: None Urinary Catheter: Yes Medications and DC Order Prescriptions: New lorazepam 0.5 mg Tablet 0.5 mg PO Q4H PRN (Reason: agitation) Qty: 7 0RF morphine concentrate 100 mg/5 mL (20 mg/mL) Solution 2.5 mg PO Q6H Qty: 15 0RF mirtazapine 15 mg Tablet 15 mg PO HS Qty: 5 0RF morphine concentrate 100 mg/5 mL (20 mg/mL) Solution 5 mg PO Q3H PRNQty: 0 0RF Discontinued fexofenadine [Lara Allergy] 180 mg tablet 180 mg PO DAILY Qty: 30 3RF diltiazem HCl [Cardizem CD] 180 mg capsule,extended release 24hr 180 mg PO DAILY omeprazole 40 mg capsule,delayed release(DR/EC) 40 mg PO DAILY magnesium 250 mg tablet 250 mg PO DAILY aspirin [Adult Low Dose Aspirin] 81 mg tablet,delayed release (DR/EC) 81 mg PO DAILY ascorbate calcium (vitamin C) 500 mg tablet 500 mg PO DAILY cholecalciferol (vitamin D3) 50 mcg (2,000 unit) capsule 50 mcg PO DAILY calcitriol 0.25 mcg capsule 0.25 mcg PO DAILY Breo Ellipta 200-25 mcg/dose blister with device 1 puffs INH DAILY Qty: 1 5RF sertraline 100 mg tablet 100 mg PO DAILY famotidine 20 mg tablet 20 mg PO DAILY budesonide 0.5 mg/2 mL suspension for nebulization 0.5 mg inhalation UD metoprolol tartrate 25 mg tablet 25 mg PO BID formoterol fumarate [Perforomist] 20 mcg/2 mL solution for nebulization 20 mcg INHALATION UD azelastine 137 mcg (0.1 %) aerosol,spray 1 spray intranasal BID PRN (Reason: Congestion) Rx Instructions: administer into each nostril Discharge Orders: Discharge Order (Routine); Ordered 01/15/22 Ordered By: Damian Hernandez Admission Data Admit Date/Time: 12/29/21 08:00 Attending Provider: Damian Hernandez Admit Provider: Azar Hurst Primary Care Provider: Shon Renteria Other Providers: [place] ; [facility] ; [facility] ; Azar Hurst ; Angelito Landers ; Hebert Forrest ; Christopher Pineda ; Ana Mercedes Other Interventions: Discharge Summary Assessment (RN) Last Done: 01/15/22 11:43 Coding Level of Care Code D/C DAY MANAGEMENT >30 MINS Diagnoses Failure to thrive Stroke I63.9 Encephalopathy G93.40 HTN (hypertension) I10 Closed left hip fracture S72.002A Inadequate oral intake R63.8 Paroxysmal supraventricular tachycardia I47.1
--- NOTE | 2022-01-17 10:45 | Coding Query ---
CODING QUERY To promote full compliance with coding requirements relating to patient care, provider participation is requested in all cases of parimutuel ticket seller uncertainty. Please assist us with the question(s) below: Coding Question(s): Patient admitted on 12/29 for a fractured hip. 01/06 Neuro consulted re: onset of hemiparesis. Facial droop had been noted previously. Seeking to determine the Present On Admission Status for the Stroke. Please check below & thank you . [facility]ule[facility] Physician's Response(s): The Stroke was Present on Admission The Stroke was NOT Present on Admission ____x___ Cannot Clinically Determine if the Stroke was Present on Adm -> Likely present on admission per progress notes, but unable to fully determine. Other: Please document: Principal Diagnosis: "that condition established after study, to be chiefly responsible for occasioning the admission of the patient to the hospital for care." Co-Existing Principal Diagnosis: "when two or more diagnoses equally meet the criteria for principal diagnosis as determined by the circumstances of admission, diagnostic work up, and/or therapy provided, and the Alphabetic Index, Tabular List, or another coding guideline does not provide sequencing direction, any one of the diagnoses may be sequenced first." "When the physician has documented what appears to be a current diagnosis in the body of the record, but has not included the diagnosis in the final diagnostic statement, the physician should be asked whether the diagnosis should be added." (Source Coding Clinic 2 QTR90. p3-4) [place]
== END 2022-01-15 13:00 | disposition hospice, inpatient (51) | DRG 480 ==
LOC: ED 04:41 → SUATTDRO 08:00 → 3E 08:00 → 2N 01-06 14:57
DX: Y92.230 Patient room in hospital as the place of occurrence of the external cause; I63.411 Cerebral infarction due to embolism of right middle cerebral artery; W19.XXXA Unspecified fall, initial encounter; F03.90 Unspecified dementia, unspecified severity, without behavioral disturbance, psychotic disturbance, mood disturbance, and anxiety; R00.1 Bradycardia, unspecified; R29.810 Facial weakness; Z66 Do not resuscitate; R62.7 Adult failure to thrive; G93.49 Other encephalopathy; S51.812A Laceration without foreign body of left forearm, initial encounter; Z79.82 Long term (current) use of aspirin; W06.XXXA Fall from bed, initial encounter; G44.89 Other headache syndrome; S72.145A Nondisplaced intertrochanteric fracture of left femur, initial encounter for closed fracture; N18.9 Chronic kidney disease, unspecified; Z88.5 Allergy status to narcotic agent; G81.94 Hemiplegia, unspecified affecting left nondominant side; Z51.5 Encounter for palliative care; I35.1 Nonrheumatic aortic (valve) insufficiency; E87.6 Hypokalemia; J44.9 Chronic obstructive pulmonary disease, unspecified; Y92.129 Unspecified place in nursing home as the place of occurrence of the external cause; I47.1 Supraventricular tachycardia